=== PATIENT | male | born 1960 | race Hispanic/Latino ===

== ENCOUNTER 2020-06-23 16:49 | Emergency (ER) | payer OTHER, SELFPAY ==
[2020-06-23 16:54] VITALS: BP 169/82; PULSE 68; RESP 16; TEMP 36.1; O2SAT 97; BMI 30.8
--- NOTE | 2020-06-23 17:14 | DI.CT.S_ITS ---
PROCEDURE: CT CERVICAL SPINE WO CON INDICATIONS: unwitnessed fall w/ c spine tenderness. TECHNIQUE: Noncontrast 3 mm thick sections acquired from the skull base to the T4 level. Sagittal and coronal reformats were then constructed. For radiation dose reduction, the following was used: automated exposure control, adjustment of mA and/or kV according to patient size. COMPARISON: None. FINDINGS: Image quality: Excellent. Bones: No fractures or dislocations. Visualized superior ribs are intact. Note is made of a normal variant partial fusion between C3 and C4, both anteriorly and posteriorly. Moderately severe degenerative disc disease is present at C5-6 and C6-7, and [id number] at C4-5. Soft tissues: Prevertebral soft tissues are normal in thickness. No paravertebral hematomas. No apical pneumothoraces. IMPRESSION: No acute trauma found. 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 Dictated by: Jaspal Wharton M.D. on 06/23/2020 at 17:38 Approved by: Jaspal Wharton M.D. on 06/23/2020 at 17:43
--- NOTE | 2020-06-23 17:14 | DI.CT.S_ITS ---
PROCEDURE: CT HEAD/BRAIN WO CON INDICATIONS: unwitnessed fall w/ c spine tenderness. TECHNIQUE: Noncontrast 4.5 mm thick angled axial sections acquired from the foramen magnum to the vertex, with coronal and sagittal reformats. For radiation dose reduction, the following was used: automated exposure control, adjustment of mA and/or kV according to patient size. COMPARISON: None. FINDINGS: Image quality: Excellent. CSF spaces: Basal cisterns are patent. No extra-axial fluid collections. Ventricles are normal in size and shape. Brain: No midline shift. No intracranial masses or hemorrhage. Ho-white matter interface is normal. Skull and face: Calvarium and visualized facial bones are intact, without suspicious lesions. Sinuses: Visualized sinuses and mastoids are clear. IMPRESSION: Normal for age, source of current pain after trauma symptoms is not seen. Dictated by: Jaspal Wharton M.D. on 06/23/2020 at 17:37 Approved by: Jaspal Wharton M.D. on 06/23/2020 at 17:38
--- NOTE | 2020-06-23 18:39 | PC.NURSE ---
Patient fell on sunday, does not recall feeling dizzy or light headed prior to fall. States it was icy out and at location of fall ground is uneven due to tree roots. Patient denies chest pain or SOB. Patient reports ongoing right sided neck pain and tenderness to scapular region. Pain in right shoulder worse with movement. CMS intact. ROM slightly limited due to stiffness. Noticed some relief with ibuprofen
--- NOTE | 2020-06-23 18:53 | ED_ITS ---
HPI - General Adult General Chief complaint: Syncope Stated complaint: fell last sunday/ Time Seen by Provider: 06/23/20 18:45 Source: patient Mode of arrival: Ambulatory Limitations: no limitations History of Present Illness HPI narrative: Patient is a 60-year-old male. Not on anticoagulation who comes to the emergency department today for evaluation of injuries that he sustained when he fell approximately 5 days ago. He states he was walking out of work when he thinks he either tripped over a tree branch that cause the sidewalk he was walking on to be uneven or over another portion of the uneven sidewalk h owever he is not 100% sure this is what happened. He does not think that he hit his head. He states that someone driving by. In asked him if he was okay and he said yes so the person left. He has been ambulatory since then. He states that prior to the event he was not having chest pain or shortness of breath or lightheadedness or palpitations. He reports some tingling occasionally down his right arm and pain in his right upper back. Has not tried anything for symptoms prior to arrival. Related Data Previous Rx's Medication Instructions Recorded azithromycin 250 mg tablet See Rx Instructions PO .COMPLEX #6 04/07/19 tab Allergies Allergy/AdvReac Type Severity Reaction Status Date / Time No Known Drug Allergies Allergy Verified 04/07/19 14:17 Review of Systems Constitutional Constitutional: Denies chills, Denies fatigue, Denies fever(s), Denies frequent falls, Denies headache(s) and Denies weakness Eyes Eyes: Denies change in vision ENT Ears, Nose, Mouth, and Throat: Denies vertigo, Denies dizziness, Denies headache(s), Denies neck pain, Denies disequilibrium and Denies sore throat Cardiovascular Cardiovascular: Denies chest pain, Denies rapid heart rate, Denies lightheadedness and Denies dyspnea Respiratory Respiratory: Denies cough and Denies dyspnea Gastrointestinal Gastrointestinal: Denies abdominal pain, Denies nausea and Denies vomiting Genitourinary Genitourinary: Denies dysuria Genitourinary: Denies dysuria Musculoskeletal Musculoskeletal: Reports back pain, Denies arthralgias, Denies joint swelling, Reports myalgias, Denies neck pain, Reports stiffness and Reports tingling Integumentary/Breasts Skin/Breast: Denies pruritus and Denies rash Neurologic Neurologic: Denies behavioral changes, Denies confusion, Denies vertigo, Denies dizziness, Denies frequent falls, Denies headache(s), Reports tingling, Denies disequilibrium and Denies weakness Psychiatric Psychiatric: Denies behavioral changes and Denies confusion Endocrine Endocrine: Denies fatigue Hematologic/Lymphatic On Anticoagulants: No Allergic/Immunologic Allergic/Immunologic: Denies urticaria Patient History Medical History Class 1 obesity (08/16/16) Gastroesophageal reflux disease Hyperlipidemia (09/25/11) Social History Smoking Status: Never smoker Smoking Status: Never smoker alcohol intake frequency: holidays/special occasions only Substance Use Type: does not use Exam Initial Vital Signs Initial Vital Signs: Vital Signs Temperature 97.0 F L 06/23/20 16:54 Pulse Rate 68 06/23/20 16:54 Respiratory Rate 16 06/23/20 16:54 Blood Pressure 169/82 H 06/23/20 16:54 Pulse Oximetry 97 06/23/20 16:54 Const General: cooperative, healthy appearing, comfortable, well developed and well groomed Limitations: mental status not altered HENMT Head: normal to inspection and normocephalic Nose: external nose normal Face and sinus: normal facial exam Resp Effort & Inspection: normal respiratory effort Auscultation: clear to auscultation bilaterally Cardio Rate: regular rate Rhythm: regular rhythm GI Inspection: non-distended Back/Spine/Pelvis Cervical Spine: No cervical spinal tenderness Thoracic/Lumbar Spine: paraspinal tenderness (Right thoracic region), No thoracic spinal tenderness and No lumbar spinal tenderness Skin Lesions: no lesions Rashes: no rashes Neuro General: patient alert, patient awake and patient oriented x3 Cognition: normal cognition Speech: speech normal Gait: normal gait Motor: muscle tone normal throughout Extrem General: normal to inspection and capillary refill normal Psych Appearance: grossly normal and well kempt Scores GCS Adrienne coma scale eye opening: Spontaneous [place] coma scale verbal response: Orientated Adrienne coma scale motor response: Obey commands Adrienne coma scale total score: 15 Course Orders Ordered: ED Orders 06/23/20 17:14 CT cervical spine wo con Stat CT head/brain wo con Stat Vital Signs Vital signs: Vital Signs - 8 hr 06/23/20 16:54 06/23/20 19:00 Temperature 97.0 F L Pulse Rate 68 60 Respiratory Rate 16 16 Blood Pressure 169/82 H 130/67 Pulse Oximetry 97 99 Medical Decision Making Imaging Data CT - cervical spine: Radiologist's Impression: [address] [id number] Scan ReportSigned Patient: Aric Merida AMR#: [id number]: [id number]:[id number]/Sex: 60 / MDate of Service: 06/23/20Loc: EDAccession Number: [id number] Procedure: CT cervical spine wo con Ordering Provider: Casandra Pena D.O. PROCEDURE: CT CERVICAL SPINE WO CON INDICATIONS: unwitnessed fall w/ c spine tenderness. TECHNIQUE: Noncontrast 3 mm thick sections acquired from the skull base to the T4 level. Sagittal and coronal reformats were then constructed. For radiation dose reduction, the following was used: automated exposure control, adjustment of mA and/or kV according to patient size. COMPARISON: None. FINDINGS: Image quality: Excellent. Bones: No fractures or dislocations. Visualized superior ribs are intact. Note is made of a normal variant partial fusion between C3 and C4, both anteriorly and posteriorly. Moderately severe degenerative disc disease is present at C5-6 and C6-7, and [id number] at C4-5. Soft tissues: Prevertebral soft tissues are normal in thickness. No paravertebral hematomas. No apical pneumothoraces. IMPRESSION: No acute trauma found. 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 Dictated by: Jaspal Wharton M.D. on 06/23/2020 at 17:38 Approved by: Jaspal Wharton M.D. on 06/23/2020 at 17:43 CT scan - head: Radiologist's Impression: [address] [id number] Scan ReportSigned Patient: Aric Merida AMR#: [id number]: [id number]:[id number]/Sex: 60 / MDate of Service: 06/23/20Loc: EDAccession Number: [id number] Procedure: CT head/brain wo con Ordering Provider: Casandra Pena D.O. PROCEDURE: CT HEAD/BRAIN WO CON INDICATIONS: unwitnessed fall w/ c spine tenderness. TECHNIQUE: Noncontrast 4.5 mm thick angled axial sections acquired from the foramen magnum to the vertex, with coronal and sagittal reformats. For radiation dose reduction, the following was used: automated exposure control, adjustment of mA and/or kV according to patient size. COMPARISON: None. FINDINGS: Image quality: Excellent. CSF spaces: Basal cisterns are patent. No extra-axial fluid collections. Ventricles are normal in size and shape. Brain: No midline shift. No intracranial masses or hemorrhage. Ho-white matter interface is normal. Skull and face: Calvarium and visualized facial bones are intact, without suspicious lesions. Sinuses: Visualized sinuses and mastoids are clear. IMPRESSION: Normal for age, source of current pain after trauma symptoms is not seen. Dictated by: Jaspal Wharton M.D. on 06/23/2020 at 17:37 Approved by: Jaspal Wharton M.D. on 06/23/2020 at 17:38 MDM Narrative Medical decision making narrative: Patient thinks that the reason that he fell was that he tripped. He did not have any prodromal symptoms prior to falling. His head CT and cervical spine are unremarkable. He does have pain over his right paraspinal/shoulder region however is full range of motion of his right shoulder. There is no other orthopedic injuries reported from the patient or found on the exam. I feel we can hold on further radiologic studies for now. The event did occur 5 days ago. He could still potentially be sore from the fall. Informed him that he needs to talk with his primary doctor about further workup if his symptoms do not improve. He was given return precautionsHe expressed understanding and agreement Discharge Plan Departure Patient Disposition: Home Clinical Impression: Fall, Upper back pain on right side, Arm paresthesia, right Instructions: How to Prevent Falls, DI for Numbness/Tingling Activity Restrictions/Additional Instructions: Your CT scans here in the emergency department did not show any emergent issue. I do recommend that you contact your primary provider for a follow-up so if your symptoms do not improve in the next couple days that you have an appointment to discuss potential further evaluation. Return to the emergency department for any new or worsening symptoms Prescriptions: No Action azithromycin 250 mg tablet See Rx Instructions PO .COMPLEX Qty: 6 RF: 0 Referrals: Desi Wallis ARNP [Primary Care Provider] -
[2020-06-23 19:00] VITALS: BP 130/67; PULSE 60; RESP 16; O2SAT 99
== END 2020-06-23 19:02 | disposition home or self-care (01) ==
PROVIDERS: Emergency Provider Emergency Medicine; PCP Internal Medicine
DX: M54.6 Pain in thoracic spine (principal); R20.2 Paresthesia of skin; S09.90XA Unspecified injury of head, initial encounter; W01.0XXA Fall on same level from slipping, tripping and stumbling without subsequent striking against object, initial encounter; Y99.0 Civilian activity done for income or pay
CPT/HCPCS: 70450; 72125; 99284

== ENCOUNTER → 2020-10-22 07:06 | Outpatient (CLI) | payer OTHER, SELFPAY ==
[2020-10-22 08:14] LABS: Add Manual Diff / Slide Review NO; Basophils Absolute Auto 100 /uL (0-100); Eosinophils Absolute Auto 300 /uL (0-450); Eosinophils Percent Auto 4.8 % (2-4); Hemoglobin 14.7 g/dL (13.5-17.5); Lymphocytes Absolute Auto 2200 /uL (1100-4500); Lymphocytes Percent Auto 33.6 % (25-40); Mean Corpuscular HGB Conc 33.3 % (30-36); Mean Corpuscular Hemoglobin 30.4 PG (26-34); Mean Corpuscular Volume 91.1 fL (80-100); Monocytes Absolute Auto 400 /uL (0-900); Monocytes Percent Auto 6.6 % (3-14); Neutrophils Absolute Auto 3500 /uL (1500-7000); Platelet Count 247 X10^3/uL (150-400); Red Blood Cell Count 4.83 X10^6/uL (4.5-5.9); Red Cell Distribution Width 13.2 % (11.6-14.8); White Blood Cell Count 6.6 X10^3/uL (4.5-11.0)
[2020-10-22 08:27] LABS: Appearance Urine UA CLEAR; Bilirubin Urine UA NEGATIVE (NEGATIVE); Color Urine UA YELLOW; Glucose Urine UA NEGATIVE (Negative); Ketones Urine UA NEGATIVE (NEGATIVE); Leukocyte Esterase Urine UA NEGATIVE (NEGATIVE); Nitrite Urine UA NEGATIVE (Negative); Occult Blood Urine UA TRACE-INTACT (Negative); Protein Urine UA NEGATIVE (Negative); Specific Gravity Urine UA 1.025 (1.000-1.035); Urobilinogen Urine UA 0.2 E.U./dL (0.2)
[2020-10-22 09:24] LABS: Alanine Aminotransferase 42 IU/L (<50); Albumin 4.4 g/dL (3.5-5.0); Albumin Globulin Ratio 1.4 (1.0-2.8); Alkaline Phosphatase 90 U/L (38-126); Aspartate Aminotransferase 47 IU/L (17-59); BUN Creatinine Ratio 27.4 (6-22); Bilirubin Total 0.7 mg/dL (0.2-1.3); Blood Urea Nitrogen 26 mg/dL (9-20); Calcium 9.7 mg/dL (8.4-10.2); Carbon Dioxide 24 mmol/L (22-32); Chloride 107 mmol/L (98-107); Cholesterol 270 mg/dL (140-199); Estimated Glomerular Filt Rate > 60.0 mL/min (>60); Globulin 3.1 g/dL (1.7-4.1); Glucose 96 mg/dL (70-100); HDL Cholesterol 38 mg/dL (40-60); HEMOLYSIS < 15 (0-50); LDL Cholesterol Calculated 184 mg/dL (<100); Potassium 4.3 mmol/L (3.4-5.1); Sodium 140 mmol/L (137-145); Total Protein 7.5 g/dL (6.3-8.2); Triglycerides 238 mg/dL (35-150)
[2020-10-22 09:51] LABS: Prostate Specific Antigen Scrn 0.882 ng/mL (0.1-4.0)
== END ==
PROVIDERS: PCP Registered Nurse; Referring Provider Registered Nurse; Visit Provider Registered Nurse
DX: Z00.00 Encounter for general adult medical examination without abnormal findings (principal); E78.5 Hyperlipidemia, unspecified; Z12.5 Encounter for screening for malignant neoplasm of prostate
CPT/HCPCS: 36415; 80053; 80061; 81003; 85025; G0103

== ENCOUNTER → 2020-12-15 09:00 | Outpatient (CLI) | payer OTHER, SELFPAY ==
[2020-12-15 09:22] LABS: COVID19 -Nasal RAPID Negative (Negative)
--- NOTE | 2020-12-15 09:39 | DI.RAD.S_ITS ---
PROCEDURE: XR CHEST 2V INDICATIONS: pleuritic chest pain TECHNIQUE: 2 views of the chest were acquired. COMPARISON: [facility], , CHEST 2 VIEW, 02/07/2010, 14:13. FINDINGS: Surgical changes and devices: None. Lungs and pleura: Lungs are clear. No pleural effusions or pneumothorax. Mediastinum: Mediastinal contours are normal. Heart size is normal. Bones and chest wall: No suspicious bony abnormalities. Soft tissues appear unremarkable. IMPRESSION: No acute cardiopulmonary disease process. Dictated by: Roz Calvo MD, PhD on 12/15/2020 at 9:52 Approved by: Roz Calvo MD, PhD on 12/15/2020 at 9:54
== END ==
PROVIDERS: PCP Registered Nurse; Referring Provider Student in an Organized Health Care Education/Training Program; Visit Provider Student in an Organized Health Care Education/Training Program
DX: J02.9 Acute pharyngitis, unspecified (principal); R05 Cough; R07.81 Pleurodynia; Z20.822 Contact with and (suspected) exposure to COVID-19
CPT/HCPCS: 71046; 87635

== ENCOUNTER → 2021-05-02 12:00 | Outpatient (CLI) | payer OTHER, SELFPAY ==
[2021-05-02 13:13] LABS: COVID19 -Nasal RAPID POSITIVE (Negative)
== END ==
PROVIDERS: PCP Registered Nurse; Referring Provider Physician Assistant; Visit Provider Physician Assistant
DX: Z20.822 Contact with and (suspected) exposure to COVID-19 (principal)
CPT/HCPCS: 87635

== ENCOUNTER 2021-10-27 16:00 | Outpatient (RCR) | payer OTHER, SELFPAY ==
--- NOTE | 2020-12-21 09:21 | PT.OIE ---
Current Diagnoses Pain in right shoulder (12/21/20) Other cervical disc degeneration, unspecified cervical region (12/21/20) Past Medical History (Last Updated 12/12/20 @ 20:50 by Virginia Devi) Adult general medical exam Class 1 obesity (08/16/16) Gastroesophageal reflux disease Hyperlipidemia (09/25/11) Right shoulder pain Screening for malignant neoplasm of colon Screening for malignant neoplasm of prostate Vision disorder Visit Care Team Role Provider Type DENTON Carrero Attending Provider Advanced Senior Core Java Developer Primary Care Provider Referring Provider Specialty: Medical Address: [address] [place] [address] Email: [email or web address] Physical Therapy Initial Evaluation PT-OP-A Visit Information Start: 12/21/20 08:54 Freq: Status: Active Protocol: Document 12/21/20 08:54 OF (Rec: 12/21/20 09:21 OF [id number]) Out-Patient Physical Therapy Visit Information Visit Information Visit Type Initial Evaluation Visit Start Time 08:10 Visit Stop Time 08:54 Total Visit Minutes 44 Visit Number 1 Evaluation Information Evaluation Date 12/21/20 PT-OP-B Current Condition Start: 12/21/20 08:54 Freq: Status: Active Protocol: Document 12/21/20 08:54 OF (Rec: 12/21/20 09:21 OF [id number]) Current Condition History of Current Condition Onset Date 06/2020 Current Complaints mid back pain, R UE tingling History of Current Condition Pt states he fell leaving work in Jun. He has had shldr/mid back/ UE pain since. 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 Prior Treatments and Tests Pt states he had chirocpractic , PT, and massage therapy in the spring Treatment Goals Patient/Caregiver Goals get back to doing work and what I want without pain Prior Functional Status Baseline Function- ADL's Independent Baseline Function- Mobility Independent Current Functional Impairments (Reported) Functional Limitations- ADL's Difficulty with any prolonged activity Functional Limitations- Work/School pain while working at computer PT-OP-C Subjective Start: 12/21/20 08:54 Freq: Status: Active Protocol: Document 12/21/20 08:54 OF (Rec: 12/21/20 09:21 OF [id number]) OP-PT Subjective Patient Comments Patient Comments Pt states he is eager for HEP, leaving for 9 days this week Patient Reported Progress Same Patient Questionnaires Quick Dash- Upper Extremity Quick Dash UE Impairment 40 to 59% Impaired (Score 40- 59) OP-PT Pain Assessment Pain Assessment Grid Paper Pain Assessment Grid Completed Yes Location medial scapula Pain Location Details R t spine, medial scap Intensity 5 Scale Used Numeric (0 - 10) Description Aching Frequency Frequent Pain Duration constant Radiating Location R UE Pain Aggravating Factors ADL's,Activity,Exercise, Standing,Walking,Lifting Pain Alleviating Factors Lying Supine Home Pain Medication Use Pain Medications Used Yes Home Pain Medication Frequency Ibuprofen PT-OP-H Neuro Start: 12/21/20 08:54 Freq: Status: Active Protocol: Document 12/21/20 08:54 OF (Rec: 12/21/20 09:21 OF [id number]) Sensation Evaluation Gross Sensation Gross Sensation Left UE Impaired Sensation Description Hyperesthesia,Tingling,Burning Dermatome Impairments C8,T4 Comments Summary Comments pt reports numbness/tingling in R 4th/5th digit. Burning midscapular T spine, R >L PT-OP-K Range of Motion Start: 12/21/20 08:54 Freq: Status: Active Protocol: Document 12/21/20 08:54 OF (Rec: 12/21/20 09:21 OF [id number]) Cervical Spine Range of Motion Cervical Spine Active Testing Position Sitting Comments WNL excluding lateral flexion, limited to 10degrees bilat Shoulder Goniometric Range of Motion Shoulder Left Shoulder ROM WFL Yes Comments WNL Right Shoulder ROM WFL Yes Testing Position Sitting Comments WNL PT-OP-L Special Tests Start: 12/21/20 08:54 Freq: Status: Active Protocol: Document 12/21/20 08:54 OF (Rec: 12/21/20 09:21 OF [id number]) Special Tests Cervical Spine Special Tests Spurling's Test Test Results neg Comments no radicular symptoms R or L Neural Special Tests- Upper Body Ulnar Nerve Tension Test Results Neg PT-OP-M Strength Start: 12/21/20 08:54 Freq: Status: Active Protocol: Document 12/21/20 08:54 OF (Rec: 12/21/20 09:21 OF [id number]) Cervical Spine Strength Cervical Spine Manual Muscle Testing Flexion (C1-2) 5 Normal Extension 5 Normal Rotation Left 5 Normal Rotation Right 5 Normal Lateral Flexion Left (C3) 5 Normal Lateral Flexion Right (C3) 5 Normal PT-OP-Q Treatments Start: 12/21/20 08:54 Freq: Status: Active Protocol: Document 12/21/20 08:54 OF (Rec: 12/21/20 09:21 OF [id number]) Therapeutic Exercises Supine Exercises 1/2 roller stretch Side bilateral Reps/Minutes 1min Comments 1/2 foam roller, stretching for B pecs, cues for shldr retraction. Sitting Exercises rows Side bilateral Resistance TB2 Reps/Minutes 3x10 Comments demo for UT relaxation, proper retractionss Manual Therapy Treatment Soft Tissue Mobilization R scap mobs Mobilization Type Sustained Pressure Intensity/Depth Moderate Body Position Sidelying Comments sup/inf glides, STM for rhomboids, hypersensitive Self-Care/Home Management Treatment Education Patient Education Body Mechanics,Home Exercise Program,Pain Management PT-OP-T Assessment and Plan Start: 12/21/20 08:54 Freq: Status: Active Protocol: Document 12/21/20 08:54 OF (Rec: 12/21/20 09:21 OF [id number]) Physical Therapy Assessment Rehab Potential Rehabilitation Potential Good Evaluation Complexity Number of Personal Factors/Comorbidities 1-2 Number of Body Systems Impaired 1-2 Clinical Presentation at Evaluation Stable Impairments Impairments Activity Tolerance,Functional Activities,Soft Tissue Mobility,Strength Goals 3 Impairment UE pain Short Term Goal (STG) Pt will demo supine chin tuck x10sec to improve postural control STG Duration 2 weeks Alarm Installation Technician Goal (LTG) Pt will demo supine chin tuck x30sec to improve tolerance for work LTG Duration 6 weeks 2 Impairment pain with work Short Term Goal (STG) Pt will improve quickdash score to <30% to demonstrate improved function at work STG Duration 2 weeks Alarm Installation Technician Goal (LTG) Pt will improve quickdash to < 19% to return to I PLOF. LTG Duration 6 weeks 1 Impairment no HEP Short Term Goal (STG) Pt will be I with basic HEP for stretching and strengthening STG Duration 2 weeks Alarm Installation Technician Goal (LTG) Pt will be I with advanced HEP for self mobilization, strengthening exercises to maximize functional return. LTG Duration 6 weeks Progress Towards Goals Progress Towards Goals Progressing Toward Goals Assessment Summary Assessment Aric is a 60 YO male s/p falling ~6 months ago. He presents with persistent back and UE pain. He has numbness/ tingling in R UE 4th and 5th digit. Hypersensitive t spine between shldr blades R >L. 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 He is unable to perform ADL or IADL without breaks. He states he must mow his lawn 1/2 at a time due to pain. He cannot lift >50lb per his report. He has pain at night, finds relief from wedge pillow. He will require skilled therapy to improve scapular control, increase strength to reduce pain, and return to work without limitation. Physical Therapy Plan Frequency and Duration Frequency of Treatment 1-2x/ week Duration of Treatment 6 weeks Plan of Care Start Date 12/21/20 Plan of Care End Date 02/01/21 Therapeutic Interventions Therapeutic Interventions Home Exercise Program,Manual Therapy,Neuromuscular Re- education,Self-Care/Home Management,Soft Tissue Mobilization,Therapeutic Exercises Next Visit Focus/Plan Next Note Type Treatment Note Next Visit Plan re assess rows, roller stretch . Add chin tucks/DNF in supine . STM for trip.
--- NOTE | 2020-12-21 09:21 | PT.OPPOC ---
Physical, Occupational & Speech Therapy At [facility] Current Diagnoses Pain in right shoulder (12/21/20) Other cervical disc degeneration, unspecified cervical region (12/21/20) Visit Care Team Role Provider Type DENTON Carrero Attending Provider Advanced Legal Office Administrator Primary Care Provider Referring Provider Specialty: Medical Address: [address] [place] [address], [facility] Email: [email or web address] Plan Of Care PT-OP-T Assessment and Plan Start: 12/21/20 08:54 Freq: Status: Active Protocol: Document 12/21/20 08:54 OF (Rec: 12/21/20 09:21 OF [id number]) Physical Therapy Assessment Rehab Potential Rehabilitation Potential Good Evaluation Complexity Number of Personal Factors/Comorbidities 1-2 Number of Body Systems Impaired 1-2 Clinical Presentation at Evaluation Stable Impairments Impairments Activity Tolerance,Functional Activities,Soft Tissue Mobility,Strength Goals 3 Impairment UE pain Short Term Goal (STG) Pt will demo supine chin tuck x10sec to improve postural control STG Duration 2 weeks [facility] Goal (LTG) Pt will demo supine chin tuck x30sec to improve tolerance for work LTG Duration 6 weeks 2 Impairment pain with work Short Term Goal (STG) Pt will improve quickdash score to <30% to demonstrate improved function at work STG Duration 2 weeks [facility] Goal (LTG) Pt will improve quickdash to < 19% to return to I PLOF. LTG Duration 6 weeks 1 Impairment no HEP Short Term Goal (STG) Pt will be I with basic HEP for stretching and strengthening STG Duration 2 weeks [facility] Goal (LTG) Pt will be I with advanced HEP for self mobilization, strengthening exercises to maximize functional return. LTG Duration 6 weeks Progress Towards Goals Progress Towards Goals Progressing Toward Goals Assessment Summary Assessment Aric is a 60 YO male s/p falling ~6 months ago. He presents with persistent back and UE pain. He has numbness/ tingling in R UE 4th and 5th digit. Hypersensitive t spine between shldr blades R >L. 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 He is unable to perform ADL or IADL without breaks. He states he must mow his lawn 1/2 at a time due to pain. He cannot lift >50lb per his report. He has pain at night, finds relief from wedge pillow. He will require skilled therapy to improve scapular control, increase strength to reduce pain, and return to work without limitation. Physical Therapy Plan Frequency and Duration Frequency of Treatment 1-2x/ week Duration of Treatment 6 weeks Plan of Care Start Date 12/21/20 Plan of Care End Date 02/01/21 Therapeutic Interventions Therapeutic Interventions Home Exercise Program,Manual Therapy,Neuromuscular Re- education,Self-Care/Home Management,Soft Tissue Mobilization,Therapeutic Exercises Next Visit Focus/Plan Next Note Type Treatment Note Next Visit Plan re assess rows, roller stretch . Add chin tucks/DNF in supine . STM for trip. Plan of Care Dates Plan of Care Start Date 12/21/20 Plan of Care End Date 02/01/21 Electronically Signed by: Max Muro, PT 12/21/20 0993 Please Sign and Return: I have reviewed this Plan of Care and certify that the skilled therapy services above are required to meet the patient?s needs. Physician Signature Date Printed Name and Credentials Clinical Instructor Signature Printed Name and Credentials
--- NOTE | 2020-12-22 08:52 | PT.OTN ---
Current Diagnoses Pain in right shoulder (12/22/20) Other cervical disc degeneration, unspecified cervical region (12/22/20) Physical Therapy Treatment Note PT-OP-A Visit Information Start: 12/21/20 08:54 Freq: Status: Active Protocol: Document 12/22/20 08:47 OF (Rec: 12/22/20 08:52 OF [id number]) Out-Patient Physical Therapy Visit Information Visit Information Visit Type Treatment Note Visit Start Time 08:08 Visit Stop Time 08:47 Total Visit Minutes 39 Visit Number 2 Evaluation Information Evaluation Date 12/21/20 PT-OP-B Current Condition Start: 12/21/20 08:54 Freq: Status: Active Protocol: Document 12/21/20 08:54 OF (Rec: 12/21/20 09:21 OF [id number]) Current Condition History of Current Condition Onset Date 06/2020 Current Complaints mid back pain, R UE tingling History of Current Condition Pt states he fell leaving work in Jun. He has had shldr/mid back/ UE pain since. 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 Prior Treatments and Tests Pt states he had chirocpractic , PT, and massage therapy in the spring Treatment Goals Patient/Caregiver Goals get back to doing work and what I want without pain Prior Functional Status Baseline Function- ADL's Independent Baseline Function- Mobility Independent Current Functional Impairments (Reported) Functional Limitations- ADL's Difficulty with any prolonged activity Functional Limitations- Work/School pain while working at computer PT-OP-C Subjective Start: 12/21/20 08:54 Freq: Status: Active Protocol: Document 12/22/20 08:47 OF (Rec: 12/22/20 08:52 OF [id number]) OP-PT Subjective Patient Comments Patient Comments pt states he feels better than yesterday, stretching helped Patient Reported Progress Improving OP-PT Pain Assessment Pain Assessment Grid Paper Pain Assessment Grid Completed No: pt denies pain this am PT-OP-H Neuro Start: 12/21/20 08:54 Freq: Status: Active Protocol: Document 12/21/20 08:54 OF (Rec: 12/21/20 09:21 OF [id number]) Sensation Evaluation Gross Sensation Gross Sensation Left UE Impaired Sensation Description Hyperesthesia,Tingling,Burning Dermatome Impairments C8,T4 Comments Summary Comments pt reports numbness/tingling in R 4th/5th digit. Burning midscapular T spine, R >L PT-OP-K Range of Motion Start: 12/21/20 08:54 Freq: Status: Active Protocol: Document 12/21/20 08:54 OF (Rec: 12/21/20 09:21 OF [id number]) Cervical Spine Range of Motion Cervical Spine Active Testing Position Sitting Comments WNL excluding lateral flexion, limited to 10degrees bilat Shoulder Goniometric Range of Motion Shoulder Left Shoulder ROM WFL Yes Comments WNL Right Shoulder ROM WFL Yes Testing Position Sitting Comments WNL PT-OP-L Special Tests Start: 12/21/20 08:54 Freq: Status: Active Protocol: Document 12/21/20 08:54 OF (Rec: 12/21/20 09:21 OF [id number]) Special Tests Cervical Spine Special Tests Spurling's Test Test Results neg Comments no radicular symptoms R or L Neural Special Tests- Upper Body Ulnar Nerve Tension Test Results Neg PT-OP-M Strength Start: 12/21/20 08:54 Freq: Status: Active Protocol: Document 12/21/20 08:54 OF (Rec: 12/21/20 09:21 OF [id number]) Cervical Spine Strength Cervical Spine Manual Muscle Testing Flexion (C1-2) 5 Normal Extension 5 Normal Rotation Left 5 Normal Rotation Right 5 Normal Lateral Flexion Left (C3) 5 Normal Lateral Flexion Right (C3) 5 Normal PT-OP-Q Treatments Start: 12/21/20 08:54 Freq: Status: Active Protocol: Document 12/22/20 08:47 OF (Rec: 12/22/20 08:52 OF [id number]) Therapeutic Exercises Supine Exercises chin tuck Reps/Minutes [id number] Comments demo for proper ROM 1/2 roller stretch Side bilateral Reps/Minutes 1min Comments 1/2 foam roller, stretching for B pecs, cues for shldr retraction. Sitting Exercises UT stretch Side bilateral Reps/Minutes [id number] rows Side bilateral Resistance TB2 Reps/Minutes 3x10 Comments demo for UT relaxation, proper retractionss Standing Exercises shldr ext Side bilateral Resistance TB2 Reps/Minutes 3x10 Comments cues to relax UT, position band for resistance Self-Care/Home Management Treatment Education Patient Education Body Mechanics,Fall Risk,Home Exercise Program PT-OP-T Assessment and Plan Start: 12/21/20 08:54 Freq: Status: Active Protocol: Document 12/22/20 08:47 OF (Rec: 12/22/20 08:52 OF [id number]) Physical Therapy Assessment Rehab Potential Rehabilitation Potential Good Evaluation Complexity Number of Personal Factors/Comorbidities 1-2 Number of Body Systems Impaired 1-2 Clinical Presentation at Evaluation Stable Impairments Impairments Soft Tissue Mobility,Strength Goals 3 Impairment UE pain Short Term Goal (STG) Pt will demo supine chin tuck x10sec to improve postural control STG Duration 2 weeks 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 LTG Duration 6 weeks 1 Impairment no HEP Short Term Goal (STG) Pt will be I with basic HEP for stretching and strengthening STG Duration 2 weeks Indoor Landscape Architect Goal (LTG) Pt will be I with advanced HEP for self mobilization, strengthening exercises to maximize functional return. LTG Duration 6 weeks Progress Towards Goals Progress Towards Goals Progressing Toward Goals Assessment Summary Assessment Pt has upcoming vacation, issued HEP to address shldr blade pain, aware of stretching and fatigue vs nerve pain. He has good recall of exercises yesterday Physical Therapy Plan Next Visit Focus/Plan Next Note Type Treatment Note Next Visit Plan re assess HEP after vacation. Progress stabilization/ strengthening for R shldr/scap
--- NOTE | 2021-01-03 09:02 | PT.OTN ---
Current Diagnoses Pain in right shoulder (01/03/21) Other cervical disc degeneration, unspecified cervical region (01/03/21) Physical Therapy Treatment Note PT-OP-A Visit Information Start: 12/21/20 08:54 Freq: Status: Active Protocol: Document 01/03/21 08:15 HH (Rec: 01/03/21 09:02 [id number]) Out-Patient Physical Therapy Visit Information Visit Information Visit Type Treatment Note Visit Start Time 08:16 Visit Stop Time 09:00 Total Visit Minutes 44 Visit Number 3 PT-OP-B Current Condition Start: 12/21/20 08:54 Freq: Status: Active Protocol: Document 12/21/20 08:54 OF (Rec: 12/21/20 09:21 OF [id number]) Current Condition History of Current Condition Onset Date 06/2020 Current Complaints mid back pain, R UE tingling History of Current Condition Pt states he fell leaving work in Jun. He has had shldr/mid back/ UE pain since. 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 Prior Treatments and Tests Pt states he had chirocpractic , PT, and massage therapy in the spring Treatment Goals Patient/Caregiver Goals get back to doing work and what I want without pain Prior Functional Status Baseline Function- ADL's Independent Baseline Function- Mobility Independent Current Functional Impairments (Reported) Functional Limitations- ADL's Difficulty with any prolonged activity Functional Limitations- Work/School pain while working at computer PT-OP-C Subjective Start: 12/21/20 08:54 Freq: Status: Active Protocol: Document 01/03/21 08:15 HH (Rec: 01/03/21 09:02 [id number]) OP-PT Subjective Patient Comments Patient Comments The home exercises makes me feel good, but the more activities i do the more fatigue/ pain i get sometimes. My tingling sensation seems to be less. Patient Reported Progress Improving PT-OP-H Neuro Start: 12/21/20 08:54 Freq: Status: Active Protocol: Document 12/21/20 08:54 OF (Rec: 12/21/20 09:21 OF [id number]) Sensation Evaluation Gross Sensation Gross Sensation Left UE Impaired Sensation Description Hyperesthesia,Tingling,Burning Dermatome Impairments C8,T4 Comments Summary Comments pt reports numbness/tingling in R 4th/5th digit. Burning midscapular T spine, R >L PT-OP-K Range of Motion Start: 12/21/20 08:54 Freq: Status: Active Protocol: Document 12/21/20 08:54 OF (Rec: 12/21/20 09:21 OF [id number]) Cervical Spine Range of Motion Cervical Spine Active Testing Position Sitting Comments WNL excluding lateral flexion, limited to 10degrees bilat Shoulder Goniometric Range of Motion Shoulder Left Shoulder ROM WFL Yes Comments WNL Right Shoulder ROM WFL Yes Testing Position Sitting Comments WNL PT-OP-L Special Tests Start: 12/21/20 08:54 Freq: Status: Active Protocol: Document 12/21/20 08:54 OF (Rec: 12/21/20 09:21 OF [id number]) Special Tests Cervical Spine Special Tests Spurling's Test Test Results neg Comments no radicular symptoms R or L Neural Special Tests- Upper Body Ulnar Nerve Tension Test Results Neg PT-OP-M Strength Start: 12/21/20 08:54 Freq: Status: Active Protocol: Document 12/21/20 08:54 OF (Rec: 12/21/20 09:21 OF [id number]) Cervical Spine Strength Cervical Spine Manual Muscle Testing Flexion (C1-2) 5 Normal Extension 5 Normal Rotation Left 5 Normal Rotation Right 5 Normal Lateral Flexion Left (C3) 5 Normal Lateral Flexion Right (C3) 5 Normal PT-OP-Q Treatments Start: 12/21/20 08:54 Freq: Status: Active Protocol: Document 01/03/21 08:15 HH (Rec: 01/03/21 09:02 HH [id number]) Cardio Equipment Upper Body Ergometer (UBE) Duration (Minutes) 4 Other 30s f/b , no dsicomfort Therapeutic Exercises Supine Exercises chin tuck Reps/Minutes [id number] Comments demo for proper ROM, cues to push against pillow 1/2 roller stretch Side bilateral Reps/Minutes 1min Comments 1/2 foam roller, stretching for B pecs, cues for shldr retraction. Sitting Exercises thoracic rotation Side bilateral Comments for HEP rows Side bilateral Resistance TB2 Reps/Minutes 3x10 Comments demo for UT relaxation, proper retractionss Standing Exercises ulnar nerve glide Standing Exercise Name with L UE assistance Side right Reps/Minutes 8 x1 Comments for HEP rhomboid stretch Side right Reps/Minutes 10s x 3 Comments for HEP Manual Therapy Treatment Soft Tissue Mobilization R scap mobs Mobilization Type Sustained Pressure Intensity/Depth Moderate Body Position Sidelying Comments sup/inf glides, STM for rhomboids, hypersensitive Joint Mobilizations R scap Grade III Body Position Sidelying Reps/Duration 2 mins Comments protraction Nerve Glides ulnar Body Position Standing Reps/Duration 10sec Comments passive stretch PT-OP-T Assessment and Plan Start: 12/21/20 08:54 Freq: Status: Active Protocol: Document 01/03/21 08:15 (Rec: 01/03/21 09:02 [id number]) Physical Therapy Assessment Goals 3 Impairment UE pain Short Term Goal (STG) Pt will demo supine chin tuck x10sec to improve postural control STG Duration 2 weeks Skilled Nursing Goal (LTG) Pt will demo supine chin tuck x30sec to improve tolerance for work LTG Duration 6 weeks 2 Impairment pain with work Short Term Goal (STG) Pt will improve quickdash score to <30% to demonstrate improved function at work STG Duration 2 weeks Skilled Nursing Goal (LTG) Pt will improve quickdash to < 19% to return to I PLOF. LTG Duration 6 weeks 1 Impairment no HEP Short Term Goal (STG) Pt will be I with basic HEP for stretching and strengthening STG Duration 2 weeks Skilled Nursing Goal (LTG) Pt will be I with advanced HEP for self mobilization, strengthening exercises to maximize functional return. LTG Duration 6 weeks Assessment Summary Assessment pt still has occasional tingling to 4-5th digit and pain after lifting/ increase physical activity. Noticed pt has limited ulnar nerve tension / rhomboid tightness. Added rhomboid stretch and ulnar nerve glide. Physical Therapy Plan Frequency and Duration Frequency of Treatment 1-2x/ week Duration of Treatment 6 weeks Plan of Care Start Date 12/21/20 Plan of Care End Date 02/01/21 Therapeutic Interventions Therapeutic Interventions Home Exercise Program,Manual Therapy,Neuromuscular Re- education,Self-Care/Home Management,Soft Tissue Mobilization,Therapeutic Exercises Next Visit Focus/Plan Next Note Type Treatment Note Next Visit Plan re assess HEP after vacation. Progress stabilization/ strengthening for R shldr/scap
--- NOTE | 2021-01-11 16:05 | PT.OTN ---
Current Diagnoses Pain in right shoulder (01/11/21) Other cervical disc degeneration, unspecified cervical region (01/11/21) Physical Therapy Treatment Note PT-OP-A Visit Information Start: 12/21/20 08:54 Freq: Status: Active Protocol: Document 01/11/21 15:56 OF (Rec: 01/11/21 16:04 OF [id number]) Out-Patient Physical Therapy Visit Information Visit Information Visit Type Treatment Note Visit Start Time 15:15 Visit Stop Time 15:55 Total Visit Minutes 40 Visit Number 4 Evaluation Information Evaluation Date 12/21/20 PT-OP-B Current Condition Start: 12/21/20 08:54 Freq: Status: Active Protocol: Document 12/21/20 08:54 OF (Rec: 12/21/20 09:21 OF [id number]) Current Condition History of Current Condition Onset Date 06/2020 Current Complaints mid back pain, R UE tingling History of Current Condition Pt states he fell leaving work in Jun. He has had shldr/mid back/ UE pain since. 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 Prior Treatments and Tests Pt states he had chirocpractic , PT, and massage therapy in the spring Treatment Goals Patient/Caregiver Goals get back to doing work and what I want without pain Prior Functional Status Baseline Function- ADL's Independent Baseline Function- Mobility Independent Current Functional Impairments (Reported) Functional Limitations- ADL's Difficulty with any prolonged activity Functional Limitations- Work/School pain while working at computer PT-OP-C Subjective Start: 12/21/20 08:54 Freq: Status: Active Protocol: Document 01/11/21 15:56 OF (Rec: 01/11/21 16:04 OF [id number]) OP-PT Subjective Patient Comments Patient Comments pt reports improved symptoms and difficulty at work Patient Reported Progress Improving OP-PT Pain Assessment Pain Assessment Grid Paper Pain Assessment Grid Completed Yes Location medial scapula Pain Location Details R shldr, mid scapular Intensity 5 Scale Used Numeric (0 - 10) Frequency Frequent Pain Aggravating Factors ADL's,Activity,Exercise, Standing,Walking,Lifting PT-OP-H Neuro Start: 12/21/20 08:54 Freq: Status: Active Protocol: Document 12/21/20 08:54 OF (Rec: 12/21/20 09:21 OF [id number]) Sensation Evaluation Gross Sensation Gross Sensation Left UE Impaired Sensation Description Hyperesthesia,Tingling,Burning Dermatome Impairments C8,T4 Comments Summary Comments pt reports numbness/tingling in R 4th/5th digit. Burning midscapular T spine, R >L PT-OP-K Range of Motion Start: 12/21/20 08:54 Freq: Status: Active Protocol: Document 12/21/20 08:54 OF (Rec: 12/21/20 09:21 OF [id number]) Cervical Spine Range of Motion Cervical Spine Active Testing Position Sitting Comments WNL excluding lateral flexion, limited to 10degrees bilat Shoulder Goniometric Range of Motion Shoulder Left Shoulder ROM WFL Yes Comments WNL Right Shoulder ROM WFL Yes Testing Position Sitting Comments WNL PT-OP-L Special Tests Start: 12/21/20 08:54 Freq: Status: Active Protocol: Document 12/21/20 08:54 OF (Rec: 12/21/20 09:21 OF [id number]) Special Tests Cervical Spine Special Tests Spurling's Test Test Results neg Comments no radicular symptoms R or L Neural Special Tests- Upper Body Ulnar Nerve Tension Test Results Neg PT-OP-M Strength Start: 12/21/20 08:54 Freq: Status: Active Protocol: Document 12/21/20 08:54 OF (Rec: 12/21/20 09:21 OF [id number]) Cervical Spine Strength Cervical Spine Manual Muscle Testing Flexion (C1-2) 5 Normal Extension 5 Normal Rotation Left 5 Normal Rotation Right 5 Normal Lateral Flexion Left (C3) 5 Normal Lateral Flexion Right (C3) 5 Normal PT-OP-Q Treatments Start: 12/21/20 08:54 Freq: Status: Active Protocol: Document 01/11/21 15:56 OF (Rec: 01/11/21 16:04 OF [email or web address]) Therapeutic Exercises Supine Exercises chin tuck Reps/Minutes [id number] Comments demo for proper ROM, cues to push against pillow 1/2 roller stretch Side bilateral Reps/Minutes 1min Comments 1/2 foam roller, stretching for B pecs, cues for shldr retraction. Sidelying Exercises open book Side right Reps/Minutes 2x5 Comments cues for initiating shldr retraction with UE ABD Sitting Exercises thoracic rotation Side bilateral Equipment Used [id number] Comments re educated upon positioning, stretch direction rows Side bilateral Resistance TB2 Reps/Minutes 3x10 Comments demo for UT relaxation, band for home Standing Exercises ulnar nerve glide Standing Exercise Name with L UE assistance Side right Reps/Minutes 8 x1 Comments side bend at neck to/from rhomboid stretch Side right Reps/Minutes 10s x 3 Comments for HEP shldr ext Side bilateral Resistance TB2 Reps/Minutes 3x10 Comments cues to relax UT, position band for resistance Manual Therapy Treatment Soft Tissue Mobilization R scap mobs Mobilization Type Oscillations,Sustained Pressure Intensity/Depth Moderate Body Position Sidelying Comments sup/inf glides, STM for rhomboids Joint Mobilizations R scap Grade III Body Position Sidelying Reps/Duration 2 mins Comments protraction Nerve Glides ulnar Body Position Standing Reps/Duration 10sec Comments passive stretch Self-Care/Home Management Treatment Education Patient Education Home Exercise Program PT-OP-T Assessment and Plan Start: 12/21/20 08:54 Freq: Status: Active Protocol: Document 01/11/21 15:56 OF (Rec: 01/11/21 16:04 OF [email or web address]) Physical Therapy Assessment Rehab Potential Rehabilitation Potential Good Evaluation Complexity Number of Personal Factors/Comorbidities 1-2 Number of Body Systems Impaired 1-2 Clinical Presentation at Evaluation Stable Impairments Impairments ROM,Soft Tissue Mobility, Strength Goals 3 Impairment UE pain Short Term Goal (STG) Pt will demo supine chin tuck x10sec to improve postural control STG Duration 2 weeks Thermoforming Operator Goal (LTG) Pt will demo supine chin tuck x30sec to improve tolerance for work LTG Duration 6 weeks 2 Impairment pain with work Short Term Goal (STG) Pt will improve quickdash score to <30% to demonstrate improved function at work STG Duration 2 weeks Correction Goal (LTG) Pt will improve quickdash to < 19% to return to I PLOF. LTG Duration 6 weeks 1 Impairment no HEP Short Term Goal (STG) Pt will be I with basic HEP for stretching and strengthening STG Duration 2 weeks Correction Goal (LTG) Pt will be I with advanced HEP for self mobilization, strengthening exercises to maximize functional return. LTG Duration 6 weeks Progress Towards Goals Progress Towards Goals Progressing Toward Goals Assessment Summary Assessment Pt has good response to ulnar nerve glides, reduced frequency for 4th-5th digit tingling. He has good HEP awareness after redirection for rhomboid/trunk rotation Physical Therapy Plan Frequency and Duration Frequency of Treatment 1-2x/ week Duration of Treatment 6 weeks Plan of Care Start Date 12/21/20 Plan of Care End Date 02/01/21 Therapeutic Interventions Therapeutic Interventions Home Exercise Program,Manual Therapy,Neuromuscular Re- education,Self-Care/Home Management,Soft Tissue Mobilization,Therapeutic Exercises Next Visit Focus/Plan Next Note Type Treatment Note Next Visit Plan re assess HEP, open book new. Mobs to Tspine and ulnar glide
--- NOTE | 2021-01-19 16:05 | PT.OTN ---
Current Diagnoses Pain in right shoulder (01/19/21) Other cervical disc degeneration, unspecified cervical region (01/19/21) Physical Therapy Treatment Note PT-OP-A Visit Information Start: 12/21/20 08:54 Freq: Status: Active Protocol: Document 01/19/21 14:33 HH (Rec: 01/19/21 16:05 [id number]) Out-Patient Physical Therapy Visit Information Visit Information Visit Type Treatment Note Visit Start Time 15:16 Visit Stop Time 16:00 Total Visit Minutes 44 Visit Number 5 PT-OP-B Current Condition Start: 12/21/20 08:54 Freq: Status: Active Protocol: Document 12/21/20 08:54 OF (Rec: 12/21/20 09:21 OF [id number]) Current Condition History of Current Condition Onset Date 06/2020 Current Complaints mid back pain, R UE tingling History of Current Condition Pt states he fell leaving work in Jun. He has had shldr/mid back/ UE pain since. 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 Prior Treatments and Tests Pt states he had chirocpractic , PT, and massage therapy in the spring Treatment Goals Patient/Caregiver Goals get back to doing work and what I want without pain Prior Functional Status Baseline Function- ADL's Independent Baseline Function- Mobility Independent Current Functional Impairments (Reported) Functional Limitations- ADL's Difficulty with any prolonged activity Functional Limitations- Work/School pain while working at computer PT-OP-C Subjective Start: 12/21/20 08:54 Freq: Status: Active Protocol: Document 01/19/21 14:33 HH (Rec: 01/19/21 16:05 [id number]) OP-PT Subjective Patient Comments Patient Comments My tingling is getting better and it's only 1-2 x/wk and goes away with the nerve glide . I still feel tight and heavy at the end of the day and after some lifting work. Patient Reported Progress Improving PT-OP-H Neuro Start: 12/21/20 08:54 Freq: Status: Active Protocol: Document 12/21/20 08:54 OF (Rec: 12/21/20 09:21 OF [id number]) Sensation Evaluation Gross Sensation Gross Sensation Left UE Impaired Sensation Description Hyperesthesia,Tingling,Burning Dermatome Impairments C8,T4 Comments Summary Comments pt reports numbness/tingling in R 4th/5th digit. Burning midscapular T spine, R >L PT-OP-K Range of Motion Start: 12/21/20 08:54 Freq: Status: Active Protocol: Document 12/21/20 08:54 OF (Rec: 12/21/20 09:21 OF [id number]) Cervical Spine Range of Motion Cervical Spine Active Testing Position Sitting Comments WNL excluding lateral flexion, limited to 10degrees bilat Shoulder Goniometric Range of Motion Shoulder Left Shoulder ROM WFL Yes Comments WNL Right Shoulder ROM WFL Yes Testing Position Sitting Comments WNL PT-OP-L Special Tests Start: 12/21/20 08:54 Freq: Status: Active Protocol: Document 12/21/20 08:54 OF (Rec: 12/21/20 09:21 OF [id number]) Special Tests Cervical Spine Special Tests Spurling's Test Test Results neg Comments no radicular symptoms R or L Neural Special Tests- Upper Body Ulnar Nerve Tension Test Results Neg PT-OP-M Strength Start: 12/21/20 08:54 Freq: Status: Active Protocol: Document 12/21/20 08:54 OF (Rec: 12/21/20 09:21 OF [id number]) Cervical Spine Strength Cervical Spine Manual Muscle Testing Flexion (C1-2) 5 Normal Extension 5 Normal Rotation Left 5 Normal Rotation Right 5 Normal Lateral Flexion Left (C3) 5 Normal Lateral Flexion Right (C3) 5 Normal PT-OP-Q Treatments Start: 12/21/20 08:54 Freq: Status: Active Protocol: Document 01/19/21 14:33 HH (Rec: 01/19/21 16:05 HH [id number]) Cardio Equipment Upper Body Ergometer (UBE) Duration (Minutes) 5 Other 30s f/b , no dsicomfort Therapeutic Exercises Sitting Exercises pulleys Sitting Exercise Name flexion, abduction Side bilateral Reps/Minutes 4 mins Standing Exercises ulnar nerve glide Standing Exercise Name with L UE assistance Side right Reps/Minutes 8 x1 Comments side bend at neck to/from rhomboid stretch Side right Reps/Minutes 10s x 3 Comments for HEP Manual Therapy Treatment Soft Tissue Mobilization bicep tendon Body Location long head Mobilization Type Sustained Pressure,Trigger Point Release Intensity/Depth Moderate Body Position Supine Comments significant toncity noted R RTC Body Location infraspinatus, teres minor Mobilization Type Sustained Pressure,Trigger Point Release Intensity/Depth Moderate Body Position Sidelying Comments significant toncity noted R scap mobs Mobilization Type Oscillations,Sustained Pressure Intensity/Depth Moderate Body Position Sidelying Comments sup/inf glides, STM for rhomboids Joint Mobilizations R scap Grade III Body Position Sidelying Reps/Duration 2 mins Comments protraction PT-OP-T Assessment and Plan Start: 12/21/20 08:54 Freq: Status: Active Protocol: Document 01/19/21 14:33 HH (Rec: 01/19/21 16:05 [id number]) Physical Therapy Assessment Goals 3 Impairment UE pain Short Term Goal (STG) Pt will demo supine chin tuck x10sec to improve postural control STG Duration 2 weeks Licensed Embalmer Goal (LTG) Pt will demo supine chin tuck x30sec to improve tolerance for work LTG Duration 6 weeks 2 Impairment pain with work Short Term Goal (STG) Pt will improve quickdash score to <30% to demonstrate improved function at work STG Duration 2 weeks Correction Goal (LTG) Pt will improve quickdash to < 19% to return to I PLOF. LTG Duration 6 weeks 1 Impairment no HEP Short Term Goal (STG) Pt will be I with basic HEP for stretching and strengthening STG Duration 2 weeks Correction Goal (LTG) Pt will be I with advanced HEP for self mobilization, strengthening exercises to maximize functional return. LTG Duration 6 weeks Assessment Summary Assessment pt reports decreased symptoms in general but continue to have generalized pain and tightness at R shoulder. Assessment shows pt has very limited flexoin, abduction, ER /IR d/t muscle tightness. His pain was less after STM. Recommended him to acquire [place] danii for ROM ex at home. Physical Therapy Plan Frequency and Duration Frequency of Treatment 1-2x/ week Duration of Treatment 6 weeks Plan of Care Start Date 12/21/20 Plan of Care End Date 02/01/21 Therapeutic Interventions Therapeutic Interventions Home Exercise Program,Manual Therapy,Neuromuscular Re- education,Self-Care/Home Management,Soft Tissue Mobilization,Therapeutic Exercises Next Visit Focus/Plan Next Note Type Treatment Note Next Visit Plan re assess HEP, open book new. Mobs to Tspine and ulnar glide
--- NOTE | 2021-01-27 16:22 | PT.OTN ---
Current Diagnoses Pain in right shoulder (01/27/21) Other cervical disc degeneration, unspecified cervical region (01/27/21) Physical Therapy Treatment Note PT-OP-A Visit Information Start: 12/21/20 08:54 Freq: Status: Active Protocol: Document 01/27/21 15:22 HH (Rec: 01/27/21 16:22 [id number]) Out-Patient Physical Therapy Visit Information Visit Information Visit Type Treatment Note Visit Start Time 15:17 Visit Stop Time 16:00 Total Visit Minutes 43 Visit Number 6 PT-OP-B Current Condition Start: 12/21/20 08:54 Freq: Status: Active Protocol: Document 12/21/20 08:54 OF (Rec: 12/21/20 09:21 OF [id number]) Current Condition History of Current Condition Onset Date 06/2020 Current Complaints mid back pain, R UE tingling History of Current Condition Pt states he fell leaving work in Jun. He has had shldr/mid back/ UE pain since. 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 Prior Treatments and Tests Pt states he had chirocpractic , PT, and massage therapy in the spring Treatment Goals Patient/Caregiver Goals get back to doing work and what I want without pain Prior Functional Status Baseline Function- ADL's Independent Baseline Function- Mobility Independent Current Functional Impairments (Reported) Functional Limitations- ADL's Difficulty with any prolonged activity Functional Limitations- Work/School pain while working at computer PT-OP-C Subjective Start: 12/21/20 08:54 Freq: Status: Active Protocol: Document 01/27/21 15:22 HH (Rec: 01/27/21 16:22 [id number]) OP-PT Subjective Patient Comments Patient Comments my shoulder and the shoulder blade were kind of painful. I still have some tingling/ numbness but not as much as before. I already got the danii but hasnt been delivered. Patient Reported Progress Improving PT-OP-H Neuro Start: 12/21/20 08:54 Freq: Status: Active Protocol: Document 12/21/20 08:54 OF (Rec: 12/21/20 09:21 OF [id number]) Sensation Evaluation Gross Sensation Gross Sensation Left UE Impaired Sensation Description Hyperesthesia,Tingling,Burning Dermatome Impairments C8,T4 Comments Summary Comments pt reports numbness/tingling in R 4th/5th digit. Burning midscapular T spine, R >L PT-OP-K Range of Motion Start: 12/21/20 08:54 Freq: Status: Active Protocol: Document 12/21/20 08:54 OF (Rec: 12/21/20 09:21 OF [id number]) Cervical Spine Range of Motion Cervical Spine Active Testing Position Sitting Comments WNL excluding lateral flexion, limited to 10degrees bilat Shoulder Goniometric Range of Motion Shoulder Left Shoulder ROM WFL Yes Comments WNL Right Shoulder ROM WFL Yes Testing Position Sitting Comments WNL PT-OP-L Special Tests Start: 12/21/20 08:54 Freq: Status: Active Protocol: Document 12/21/20 08:54 OF (Rec: 12/21/20 09:21 OF [id number]) Special Tests Cervical Spine Special Tests Spurling's Test Test Results neg Comments no radicular symptoms R or L Neural Special Tests- Upper Body Ulnar Nerve Tension Test Results Neg PT-OP-M Strength Start: 12/21/20 08:54 Freq: Status: Active Protocol: Document 12/21/20 08:54 OF (Rec: 12/21/20 09:21 OF [id number]) Cervical Spine Strength Cervical Spine Manual Muscle Testing Flexion (C1-2) 5 Normal Extension 5 Normal Rotation Left 5 Normal Rotation Right 5 Normal Lateral Flexion Left (C3) 5 Normal Lateral Flexion Right (C3) 5 Normal PT-OP-Q Treatments Start: 12/21/20 08:54 Freq: Status: Active Protocol: Document 01/27/21 15:22 HH (Rec: 01/27/21 16:22 HH [id number]) Cardio Equipment Upper Body Ergometer (UBE) Duration (Minutes) 3 Other 30s f/b , no dsicomfort Therapeutic Exercises Supine Exercises neck stretches Supine Exercise Name PT assisted, lateral flexion/ rotation Side bilateral Sidelying Exercises open book Side right Reps/Minutes 2x5 Comments cues for initiating shldr retraction with UE ABD Sitting Exercises pulleys Sitting Exercise Name flexion, abduction Side bilateral Reps/Minutes 4 mins Manual Therapy Treatment Soft Tissue Mobilization trap & levator scap Mobilization Type Myofascial Release,Sustained Pressure,Trigger Point Release Intensity/Depth Moderate Body Position Supine Comments hypertonicity at scalene and levator scap suboccipital Mobilization Type Myofascial Release,Sustained Pressure,Trigger Point Release Intensity/Depth Moderate Body Position Supine Manual Traction Cervical Details traction Body Position Supine Comments pain relief, rpeorts of tension down to R scap PT-OP-T Assessment and Plan Start: 12/21/20 08:54 Freq: Status: Active Protocol: Document 01/27/21 15:22 (Rec: 01/27/21 16:22 [id number]) Physical Therapy Assessment Goals 3 Impairment UE pain Short Term Goal (STG) Pt will demo supine chin tuck x10sec to improve postural control STG Duration 2 weeks Concrete Pipe Plant Supervisor Goal (LTG) Pt will demo supine chin tuck x30sec to improve tolerance for work LTG Duration 6 weeks 2 Impairment pain with work Short Term Goal (STG) Pt will improve quickdash score to <30% to demonstrate improved function at work STG Duration 2 weeks Longterm Goal (LTG) Pt will improve quickdash to < 19% to return to I PLOF. LTG Duration 6 weeks 1 Impairment no HEP Short Term Goal (STG) Pt will be I with basic HEP for stretching and strengthening STG Duration 2 weeks Concrete Pipe Plant Supervisor Goal (LTG) Pt will be I with advanced HEP for self mobilization, strengthening exercises to maximize functional return. LTG Duration 6 weeks Assessment Summary Assessment pt has some flare up since last week. His cervical ROM is still very limited. Spent time on manual therapy and passive neck stretches. He is going tot start shoulder danii ex once he receives it. Will assess post session tolerance. Physical Therapy Plan Frequency and Duration Frequency of Treatment 1-2x/ week Duration of Treatment 6 weeks Plan of Care Start Date 12/21/20 Plan of Care End Date 02/01/21 Therapeutic Interventions Therapeutic Interventions Home Exercise Program,Manual Therapy,Neuromuscular Re- education,Self-Care/Home Management,Soft Tissue Mobilization,Therapeutic Exercises Next Visit Focus/Plan Next Note Type Treatment Note Next Visit Plan re assess HEP, open book new. Mobs to Tspine and ulnar glide
--- NOTE | 2021-02-08 16:18 | PT.OTN ---
Current Diagnoses Pain in right shoulder (02/08/21) Other cervical disc degeneration, unspecified cervical region (02/08/21) Physical Therapy Treatment Note PT-OP-A Visit Information Start: 12/21/20 08:54 Freq: Status: Active Protocol: Document 02/08/21 14:21 (Rec: 02/08/21 16:18 [id number]) Out-Patient Physical Therapy Visit Information Visit Information Visit Type Treatment Note Visit Start Time 15:16 Visit Stop Time 16:00 Total Visit Minutes 44 Visit Number 7 PT-OP-B Current Condition Start: 12/21/20 08:54 Freq: Status: Active Protocol: Document 12/21/20 08:54 OF (Rec: 12/21/20 09:21 OF [id number]) Current Condition History of Current Condition Onset Date 06/2020 Current Complaints mid back pain, R UE tingling History of Current Condition Pt states he fell leaving work in Jun. He has had shldr/mid back/ UE pain since. 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 Prior Treatments and Tests Pt states he had chirocpractic , PT, and massage therapy in the spring Treatment Goals Patient/Caregiver Goals get back to doing work and what I want without pain Prior Functional Status Baseline Function- ADL's Independent Baseline Function- Mobility Independent Current Functional Impairments (Reported) Functional Limitations- ADL's Difficulty with any prolonged activity Functional Limitations- Work/School pain while working at computer PT-OP-C Subjective Start: 12/21/20 08:54 Freq: Status: Active Protocol: Document 02/08/21 14:21 (Rec: 02/08/21 16:18 [id number]) OP-PT Subjective Patient Comments Patient Comments my tingling part is only 2 x/ wk now. But my back and neck are kind of painful. PT-OP-H Neuro Start: 12/21/20 08:54 Freq: Status: Active Protocol: Document 12/21/20 08:54 OF (Rec: 12/21/20 09:21 OF [id number]) Sensation Evaluation Gross Sensation Gross Sensation Left UE Impaired Sensation Description Hyperesthesia,Tingling,Burning Dermatome Impairments C8,T4 Comments Summary Comments pt reports numbness/tingling in R 4th/5th digit. Burning midscapular T spine, R >L PT-OP-K Range of Motion Start: 12/21/20 08:54 Freq: Status: Active Protocol: Document 12/21/20 08:54 OF (Rec: 12/21/20 09:21 OF [id number]) Cervical Spine Range of Motion Cervical Spine Active Testing Position Sitting Comments WNL excluding lateral flexion, limited to 10degrees bilat Shoulder Goniometric Range of Motion Shoulder Left Shoulder ROM WFL Yes Comments WNL Right Shoulder ROM WFL Yes Testing Position Sitting Comments WNL PT-OP-L Special Tests Start: 12/21/20 08:54 Freq: Status: Active Protocol: Document 12/21/20 08:54 OF (Rec: 12/21/20 09:21 OF [id number]) Special Tests Cervical Spine Special Tests Spurling's Test Test Results neg Comments no radicular symptoms R or L Neural Special Tests- Upper Body Ulnar Nerve Tension Test Results Neg PT-OP-M Strength Start: 12/21/20 08:54 Freq: Status: Active Protocol: Document 12/21/20 08:54 OF (Rec: 12/21/20 09:21 OF [id number]) Cervical Spine Strength Cervical Spine Manual Muscle Testing Flexion (C1-2) 5 Normal Extension 5 Normal Rotation Left 5 Normal Rotation Right 5 Normal Lateral Flexion Left (C3) 5 Normal Lateral Flexion Right (C3) 5 Normal PT-OP-Q Treatments Start: 12/21/20 08:54 Freq: Status: Active Protocol: Document 02/08/21 14:21 HH (Rec: 02/08/21 16:18 HH [id number]) Cardio Equipment Upper Body Ergometer (UBE) Duration (Minutes) 5 Other 30s f/b , no dsicomfort Therapeutic Exercises Supine Exercises neck stretches Supine Exercise Name PT assisted, lateral flexion/ rotation Side bilateral Comments for trap and levator scap Standing Exercises neck stretches Standing Exercise Name upper trap and levator scap. Side right Reps/Minutes 15s hold x 5 Comments for HEP Manual Therapy Treatment Soft Tissue Mobilization trap & levator scap Body Location deep tissue Mobilization Type Myofascial Release,Sustained Pressure,Trigger Point Release Intensity/Depth Moderate Body Position Supine Comments hypertonicity at scalene and levator scap R RTC Body Location infraspinatus, teres minor Mobilization Type Sustained Pressure,Trigger Point Release Intensity/Depth Moderate Body Position Sidelying Comments significant toncity noted Manual Traction Cervical Details traction Body Position Supine Comments pain relief, rpeorts of tension down to R scap PT-OP-T Assessment and Plan Start: 12/21/20 08:54 Freq: Status: Active Protocol: Document 02/08/21 14:21 HH (Rec: 02/08/21 16:18 HH [id number]) Physical Therapy Assessment Goals 3 Impairment UE pain Short Term Goal (STG) Pt will demo supine chin tuck x10sec to improve postural control STG Duration 2 weeks Cosmetics Presser Goal (LTG) Pt will demo supine chin tuck x30sec to improve tolerance for work LTG Duration 6 weeks 2 Impairment pain with work Short Term Goal (STG) Pt will improve quickdash score to <30% to demonstrate improved function at work STG Duration 2 weeks [facility] Goal (LTG) Pt will improve quickdash to < 19% to return to I PLOF. LTG Duration 6 weeks 1 Impairment no HEP Short Term Goal (STG) Pt will be I with basic HEP for stretching and strengthening STG Duration 2 weeks [facility] Goal (LTG) Pt will be I with advanced HEP for self mobilization, strengthening exercises to maximize functional return. LTG Duration 6 weeks Assessment Summary Assessment pt continues to have very limited cervical rotation to R and lateral flexion bilaterally. He is still presenting cervical radiculopathy with worsening symptoms at closed pack position. This session focused on traction, neck stretches and have him focus neck stretches multiple times a day . Physical Therapy Plan Frequency and Duration Frequency of Treatment 1-2x/ week Duration of Treatment 6 weeks Plan of Care Start Date 12/21/20 Plan of Care End Date 02/01/21 Therapeutic Interventions Therapeutic Interventions Home Exercise Program,Manual Therapy,Neuromuscular Re- education,Self-Care/Home Management,Soft Tissue Mobilization,Therapeutic Exercises Next Visit Focus/Plan Next Note Type Treatment Note Next Visit Plan re assess HEP, open book new. Mobs to Tspine and ulnar glide
--- NOTE | 2021-02-08 17:00 | PT.OTN ---
Current Diagnoses Pain in right shoulder (02/08/21) Other cervical disc degeneration, unspecified cervical region (02/08/21) Physical Therapy Treatment Note PT-OP-A Visit Information Start: 12/21/20 08:54 Freq: Status: Active Protocol: Document 02/08/21 14:21 (Rec: 02/08/21 16:18 [id number]) Out-Patient Physical Therapy Visit Information Visit Information Visit Type Progress Note Visit Start Time 15:16 Visit Stop Time 16:00 Total Visit Minutes 44 Visit Number 7 PT-OP-B Current Condition Start: 12/21/20 08:54 Freq: Status: Active Protocol: Document 12/21/20 08:54 OF (Rec: 12/21/20 09:21 OF [id number]) Current Condition History of Current Condition Onset Date 06/2020 Current Complaints mid back pain, R UE tingling History of Current Condition Pt states he fell leaving work in Jun. He has had shldr/mid back/ UE pain since. 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 Prior Treatments and Tests Pt states he had chirocpractic , PT, and massage therapy in the spring Treatment Goals Patient/Caregiver Goals get back to doing work and what I want without pain Prior Functional Status Baseline Function- ADL's Independent Baseline Function- Mobility Independent Current Functional Impairments (Reported) Functional Limitations- ADL's Difficulty with any prolonged activity Functional Limitations- Work/School pain while working at computer PT-OP-C Subjective Start: 12/21/20 08:54 Freq: Status: Active Protocol: Document 02/08/21 14:21 (Rec: 02/08/21 16:18 [id number]) OP-PT Subjective Patient Comments Patient Comments my tingling part is only 2 x/ wk now. But my back and neck are kind of painful. PT-OP-H Neuro Start: 12/21/20 08:54 Freq: Status: Active Protocol: Document 12/21/20 08:54 OF (Rec: 12/21/20 09:21 OF [id number]) Sensation Evaluation Gross Sensation Gross Sensation Left UE Impaired Sensation Description Hyperesthesia,Tingling,Burning Dermatome Impairments C8,T4 Comments Summary Comments pt reports numbness/tingling in R 4th/5th digit. Burning midscapular T spine, R >L PT-OP-K Range of Motion Start: 12/21/20 08:54 Freq: Status: Active Protocol: Document 12/21/20 08:54 OF (Rec: 12/21/20 09:21 OF [id number]) Cervical Spine Range of Motion Cervical Spine Active Testing Position Sitting Comments WNL excluding lateral flexion, limited to 10degrees bilat Shoulder Goniometric Range of Motion Shoulder Left Shoulder ROM WFL Yes Comments WNL Right Shoulder ROM WFL Yes Testing Position Sitting Comments WNL PT-OP-L Special Tests Start: 12/21/20 08:54 Freq: Status: Active Protocol: Document 12/21/20 08:54 OF (Rec: 12/21/20 09:21 OF [id number]) Special Tests Cervical Spine Special Tests Spurling's Test Test Results neg Comments no radicular symptoms R or L Neural Special Tests- Upper Body Ulnar Nerve Tension Test Results Neg PT-OP-M Strength Start: 12/21/20 08:54 Freq: Status: Active Protocol: Document 12/21/20 08:54 OF (Rec: 12/21/20 09:21 OF [id number]) Cervical Spine Strength Cervical Spine Manual Muscle Testing Flexion (C1-2) 5 Normal Extension 5 Normal Rotation Left 5 Normal Rotation Right 5 Normal Lateral Flexion Left (C3) 5 Normal Lateral Flexion Right (C3) 5 Normal PT-OP-Q Treatments Start: 12/21/20 08:54 Freq: Status: Active Protocol: Document 02/08/21 14:21 HH (Rec: 02/08/21 16:18 HH [id number]) Cardio Equipment Upper Body Ergometer (UBE) Duration (Minutes) 5 Other 30s f/b , no dsicomfort Therapeutic Exercises Supine Exercises neck stretches Supine Exercise Name PT assisted, lateral flexion/ rotation Side bilateral Comments for trap and levator scap Standing Exercises neck stretches Standing Exercise Name upper trap and levator scap. Side right Reps/Minutes 15s hold x 5 Comments for HEP Manual Therapy Treatment Soft Tissue Mobilization trap & levator scap Body Location deep tissue Mobilization Type Myofascial Release,Sustained Pressure,Trigger Point Release Intensity/Depth Moderate Body Position Supine Comments hypertonicity at scalene and levator scap R RTC Body Location infraspinatus, teres minor Mobilization Type Sustained Pressure,Trigger Point Release Intensity/Depth Moderate Body Position Sidelying Comments significant toncity noted Manual Traction Cervical Details traction Body Position Supine Comments pain relief, rpeorts of tension down to R scap PT-OP-T Assessment and Plan Start: 12/21/20 08:54 Freq: Status: Active Protocol: Document 02/08/21 14:21 HH (Rec: 02/08/21 16:18 HH [id number]) Physical Therapy Assessment Goals 3 Impairment UE pain Short Term Goal (STG) 10/5 asssess next visit Pt will demo supine chin tuck x10sec to improve postural control STG Duration 2 weeks Antique Refinisher Goal (LTG) Pt will demo supine chin tuck x30sec to improve tolerance for work LTG Duration 6 weeks 2 Impairment pain with work Short Term Goal (STG) 10/5 asssess next visit Pt will improve quickdash score to <30% to demonstrate improved function at work STG Duration 2 weeks Mcc Goal (LTG) Pt will improve quickdash to < 19% to return to I PLOF. LTG Duration 6 weeks 1 Impairment no HEP Short Term Goal (STG) 10/5 asssess next visit Pt will be I with basic HEP for stretching and strengthening STG Duration 2 weeks Mcc Goal (LTG) Pt will be I with advanced HEP for self mobilization, strengthening exercises to maximize functional return. LTG Duration 6 weeks Assessment Summary Assessment pt continues to have very limited cervical rotation to R and lateral flexion bilaterally. He is still presenting cervical radiculopathy with worsening symptoms at closed pack position. This session focused on traction, neck stretches and have him focus neck stretches multiple times a day . I think pt still need skilled therapy 1x/wk x 6 weeks (pt will be gone 2 weeks for vacation) to address his limited cervical and shoulder ROM. Physical Therapy Plan Frequency and Duration Frequency of Treatment 1-2x/ week Duration of Treatment 6 weeks Plan of Care Start Date 02/08/21 Plan of Care End Date 04/10/21 Therapeutic Interventions Therapeutic Interventions Home Exercise Program,Manual Therapy,Neuromuscular Re- education,Self-Care/Home Management,Soft Tissue Mobilization,Therapeutic Exercises Modalities Cold Pack/Ice Massage,Electric Stimulation,Hot Packs, Infrared Therapy,Traction- Mechanical,Ultrasound Next Visit Focus/Plan Next Note Type Treatment Note Next Visit Plan re assess HEP, open book new. Mobs to Tspine and ulnar glide
--- NOTE | 2021-02-08 17:00 | PT.OPPOC ---
Physical, Occupational & Speech Therapy At [facility] Current Diagnoses Pain in right shoulder (02/08/21) Other cervical disc degeneration, unspecified cervical region (02/08/21) Visit Care Team Role Provider Type DENTON Carrero Attending Provider Advanced Piece Maker Primary Care Provider Referring Provider Specialty: Medical Address: [address] [place] [address], [facility] Email: [email or web address] Plan Of Care PT-OP-T Assessment and Plan Start: 12/21/20 08:54 Freq: Status: Active Protocol: Document 02/08/21 14:21 (Rec: 02/08/21 16:18 [id number]) Physical Therapy Assessment Goals 3 Impairment UE pain Short Term Goal (STG) 10/5 asssess next visit Pt will demo supine chin tuck x10sec to improve postural control STG Duration 2 weeks Retirement Goal (LTG) Pt will demo supine chin tuck x30sec to improve tolerance for work LTG Duration 6 weeks 2 Impairment pain with work Short Term Goal (STG) 10/5 asssess next visit Pt will improve quickdash score to <30% to demonstrate improved function at work STG Duration 2 weeks Retirement Goal (LTG) Pt will improve quickdash to < 19% to return to I PLOF. LTG Duration 6 weeks 1 Impairment no HEP Short Term Goal (STG) 10/5 asssess next visit Pt will be I with basic HEP for stretching and strengthening STG Duration 2 weeks Retirement Goal (LTG) Pt will be I with advanced HEP for self mobilization, strengthening exercises to maximize functional return. LTG Duration 6 weeks Assessment Summary Assessment pt continues to have very limited cervical rotation to R and lateral flexion bilaterally. He is still presenting cervical radiculopathy with worsening symptoms at closed pack position. This session focused on traction, neck stretches and have him focus neck stretches multiple times a day . I think pt still need skilled therapy 1x/wk x 6 weeks (pt will be gone 2 weeks for vacation) to address his limited cervical and shoulder ROM. Physical Therapy Plan Frequency and Duration Frequency of Treatment 1-2x/ week Duration of Treatment 6 weeks Plan of Care Start Date 02/08/21 Plan of Care End Date 04/10/21 Therapeutic Interventions Therapeutic Interventions Home Exercise Program,Manual Therapy,Neuromuscular Re- education,Self-Care/Home Management,Soft Tissue Mobilization,Therapeutic Exercises Modalities Cold Pack/Ice Massage,Electric Stimulation,Hot Packs, Infrared Therapy,Traction- Mechanical,Ultrasound Next Visit Focus/Plan Next Note Type Treatment Note Next Visit Plan re assess HEP, open book new. Mobs to Tspine and ulnar glide Plan of Care Dates Plan of Care Start Date 02/08/21 Plan of Care End Date 04/10/21 Electronically Signed by: Patrick Alex, PT 02/24/21 8016 Please Sign and Return: I have reviewed this Plan of Care and certify that the skilled therapy services above are required to meet the patient?s needs. Physician Signature Date Printed Name and Credentials Clinical Instructor Signature Printed Name and Credentials
--- NOTE | 2021-02-24 16:33 | PT.OTN ---
Current Diagnoses Pain in right shoulder (02/24/21) Other cervical disc degeneration, unspecified cervical region (02/24/21) Physical Therapy Treatment Note PT-OP-A Visit Information Start: 12/21/20 08:54 Freq: Status: Active Protocol: Document 02/24/21 15:17 HH (Rec: 02/24/21 16:32 [id number]) Out-Patient Physical Therapy Visit Information Visit Information Visit Type Progress Note Visit Start Time 15:15 Visit Stop Time 16:10 Total Visit Minutes 55 Visit Number 8 PT-OP-B Current Condition Start: 12/21/20 08:54 Freq: Status: Active Protocol: Document 12/21/20 08:54 OF (Rec: 12/21/20 09:21 OF [id number]) Current Condition History of Current Condition Onset Date 06/2020 Current Complaints mid back pain, R UE tingling History of Current Condition Pt states he fell leaving work in Jun. He has had shldr/mid back/ UE pain since. 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 Prior Treatments and Tests Pt states he had chirocpractic , PT, and massage therapy in the spring Treatment Goals Patient/Caregiver Goals get back to doing work and what I want without pain Prior Functional Status Baseline Function- ADL's Independent Baseline Function- Mobility Independent Current Functional Impairments (Reported) Functional Limitations- ADL's Difficulty with any prolonged activity Functional Limitations- Work/School pain while working at computer PT-OP-C Subjective Start: 12/21/20 08:54 Freq: Status: Active Protocol: Document 02/24/21 15:17 (Rec: 02/24/21 16:32 [id number]) OP-PT Subjective Patient Comments Patient Comments Carmen been doing more stretches . I still have numbness twice a week, and my neck still achy and painful when i move. But i do think my pain is less and PT is helpful. It's just slow so far. Patient Reported Progress Improving PT-OP-H Neuro Start: 12/21/20 08:54 Freq: Status: Active Protocol: Document 12/21/20 08:54 OF (Rec: 12/21/20 09:21 OF [id number]) Sensation Evaluation Gross Sensation Gross Sensation Left UE Impaired Sensation Description Hyperesthesia,Tingling,Burning Dermatome Impairments C8,T4 Comments Summary Comments pt reports numbness/tingling in R 4th/5th digit. Burning midscapular T spine, R >L PT-OP-K Range of Motion Start: 12/21/20 08:54 Freq: Status: Active Protocol: Document 12/21/20 08:54 OF (Rec: 12/21/20 09:21 OF [id number]) Cervical Spine Range of Motion Cervical Spine Active Testing Position Sitting Comments WNL excluding lateral flexion, limited to 10degrees bilat Shoulder Goniometric Range of Motion Shoulder Left Shoulder ROM WFL Yes Comments WNL Right Shoulder ROM WFL Yes Testing Position Sitting Comments WNL PT-OP-L Special Tests Start: 12/21/20 08:54 Freq: Status: Active Protocol: Document 12/21/20 08:54 OF (Rec: 12/21/20 09:21 OF [id number]) Special Tests Cervical Spine Special Tests Spurling's Test Test Results neg Comments no radicular symptoms R or L Neural Special Tests- Upper Body Ulnar Nerve Tension Test Results Neg PT-OP-M Strength Start: 12/21/20 08:54 Freq: Status: Active Protocol: Document 12/21/20 08:54 OF (Rec: 12/21/20 09:21 OF [id number]) Cervical Spine Strength Cervical Spine Manual Muscle Testing Flexion (C1-2) 5 Normal Extension 5 Normal Rotation Left 5 Normal Rotation Right 5 Normal Lateral Flexion Left (C3) 5 Normal Lateral Flexion Right (C3) 5 Normal PT-OP-Q Treatments Start: 12/21/20 08:54 Freq: Status: Active Protocol: Document 02/24/21 15:17 HH (Rec: 02/24/21 16:32 HH [id number]) Therapeutic Exercises Supine Exercises neck stretches Supine Exercise Name PT assisted, lateral flexion/ rotation Side bilateral Comments for trap and levator scap Sitting Exercises shoulder posterior capsule Sitting Exercise Name crossbody stretch Side right Reps/Minutes 30s x5 Comments for hEP Manual Therapy Treatment Soft Tissue Mobilization lats Mobilization Type Myofascial Release Intensity/Depth Moderate Body Position Sidelying Comments significant tenderness to pressure but improve after trap & levator scap Body Location deep tissue Mobilization Type Myofascial Release,Sustained Pressure,Trigger Point Release Intensity/Depth Moderate Body Position Supine Comments hypertonicity at scalene and levator scap R RTC Body Location infraspinatus, teres minor Mobilization Type Sustained Pressure,Trigger Point Release Intensity/Depth Moderate Body Position Sidelying Comments significant toncity noted R scap mobs Body Location rhythmic initiation on scap Comments joint mob Joint Mobilizations R GHJ Joint inferior, posterior Body Position Sidelying Reps/Duration 10 mins R scap Grade III Body Position Sidelying Reps/Duration 2 mins PT-OP-T Assessment and Plan Start: 12/21/20 08:54 Freq: Status: Active Protocol: Document 02/24/21 15:17 (Rec: 02/24/21 16:32 [id number]) Physical Therapy Assessment Goals 3 Impairment UE pain Short Term Goal (STG) 10/5 asssess next visit Pt will demo supine chin tuck x10sec to improve postural control STG Duration 2 weeks Fpc Goal (LTG) Pt will demo supine chin tuck x30sec to improve tolerance for work LTG Duration 6 weeks 2 Impairment pain with work Short Term Goal (STG) 10/5 asssess next visit Pt will improve quickdash score to <30% to demonstrate improved function at work STG Duration 2 weeks Fpc Goal (LTG) Pt will improve quickdash to < 19% to return to I PLOF. LTG Duration 6 weeks 1 Impairment no HEP Short Term Goal (STG) 02/24 pt is I for HEP Pt will be I with basic HEP for stretching and strengthening STG Duration 2 weeks Rn Or Lvn Goal (LTG) Pt will be I with advanced HEP for self mobilization, strengthening exercises to maximize functional return. LTG Duration 6 weeks Assessment Summary Assessment pt thinks he is progressing but slowly. His R shoulder AROM is still very limited but significant improved after joint mob and muscle release at Lat and shoulder internal rotators. Added posterior capsule stretch to HEP. Will cont POC and recommend once every two weeks for 3-4 more appt d/t his high copay. Physical Therapy Plan Frequency and Duration Frequency of Treatment 1-2x/ week Duration of Treatment 6 weeks Plan of Care Start Date 02/08/21 Plan of Care End Date 04/10/21 Therapeutic Interventions Therapeutic Interventions Home Exercise Program,Manual Therapy,Neuromuscular Re- education,Self-Care/Home Management,Soft Tissue Mobilization,Therapeutic Exercises Modalities Cold Pack/Ice Massage,Electric Stimulation,Hot Packs, Infrared Therapy,Traction- Mechanical,Ultrasound Next Visit Focus/Plan Next Note Type Treatment Note Next Visit Plan re assess HEP, open book new. Mobs to Tspine and ulnar glide
--- NOTE | 2021-03-03 15:47 | PT.OTN ---
Current Diagnoses Pain in right shoulder (03/03/21) Other cervical disc degeneration, unspecified cervical region (03/03/21) Physical Therapy Treatment Note PT-OP-A Visit Information Start: 12/21/20 08:54 Freq: Status: Active Protocol: Document 03/03/21 14:38 HH (Rec: 03/03/21 15:47 [id number]) Out-Patient Physical Therapy Visit Information Visit Information Visit Type Treatment Note Visit Start Time 14:30 Visit Stop Time 15:23 Total Visit Minutes 53 Visit Number 9 PT-OP-B Current Condition Start: 12/21/20 08:54 Freq: Status: Active Protocol: Document 12/21/20 08:54 OF (Rec: 12/21/20 09:21 OF [id number]) Current Condition History of Current Condition Onset Date 06/2020 Current Complaints mid back pain, R UE tingling History of Current Condition Pt states he fell leaving work in Jun. He has had shldr/mid back/ UE pain since. 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 Prior Treatments and Tests Pt states he had chirocpractic , PT, and massage therapy in the spring Treatment Goals Patient/Caregiver Goals get back to doing work and what I want without pain Prior Functional Status Baseline Function- ADL's Independent Baseline Function- Mobility Independent Current Functional Impairments (Reported) Functional Limitations- ADL's Difficulty with any prolonged activity Functional Limitations- Work/School pain while working at computer PT-OP-C Subjective Start: 12/21/20 08:54 Freq: Status: Active Protocol: Document 03/03/21 14:38 HH (Rec: 03/03/21 15:47 [id number]) OP-PT Subjective Patient Comments Patient Comments I felt pretty good after last session but I irritated my neck and shoulder after carrying luggages during my trip to [place]. Patient Reported Progress Same PT-OP-H Neuro Start: 12/21/20 08:54 Freq: Status: Active Protocol: Document 12/21/20 08:54 OF (Rec: 12/21/20 09:21 OF [id number]) Sensation Evaluation Gross Sensation Gross Sensation Left UE Impaired Sensation Description Hyperesthesia,Tingling,Burning Dermatome Impairments C8,T4 Comments Summary Comments pt reports numbness/tingling in R 4th/5th digit. Burning midscapular T spine, R >L PT-OP-K Range of Motion Start: 12/21/20 08:54 Freq: Status: Active Protocol: Document 12/21/20 08:54 OF (Rec: 12/21/20 09:21 OF [id number]) Cervical Spine Range of Motion Cervical Spine Active Testing Position Sitting Comments WNL excluding lateral flexion, limited to 10degrees bilat Shoulder Goniometric Range of Motion Shoulder Left Shoulder ROM WFL Yes Comments WNL Right Shoulder ROM WFL Yes Testing Position Sitting Comments WNL PT-OP-L Special Tests Start: 12/21/20 08:54 Freq: Status: Active Protocol: Document 12/21/20 08:54 OF (Rec: 12/21/20 09:21 OF [id number]) Special Tests Cervical Spine Special Tests Spurling's Test Test Results neg Comments no radicular symptoms R or L Neural Special Tests- Upper Body Ulnar Nerve Tension Test Results Neg PT-OP-M Strength Start: 12/21/20 08:54 Freq: Status: Active Protocol: Document 12/21/20 08:54 OF (Rec: 12/21/20 09:21 OF [id number]) Cervical Spine Strength Cervical Spine Manual Muscle Testing Flexion (C1-2) 5 Normal Extension 5 Normal Rotation Left 5 Normal Rotation Right 5 Normal Lateral Flexion Left (C3) 5 Normal Lateral Flexion Right (C3) 5 Normal PT-OP-Q Treatments Start: 12/21/20 08:54 Freq: Status: Active Protocol: Document 03/03/21 14:38 HH (Rec: 03/03/21 15:47 HH [id number]) Cardio Equipment Upper Body Ergometer (UBE) Duration (Minutes) 5 Other 30s f/b , no dsicomfort Therapeutic Exercises Sitting Exercises shoulder posterior capsule Sitting Exercise Name crossbody stretch Side right Reps/Minutes 30s x5 Comments for hEP pulleys Sitting Exercise Name flexion, abduction Side bilateral Reps/Minutes 4 mins UT stretch Side bilateral Reps/Minutes [id number] rows Equipment Used level 1 Comments for HEP Standing Exercises lat stretch Equipment Used door frame Reps/Minutes 20s hold x5 Comments for HEP Manual Therapy Treatment Soft Tissue Mobilization lats Mobilization Type Myofascial Release Intensity/Depth Moderate Body Position Sidelying Comments significant tenderness to pressure but improve after trap & levator scap Body Location deep tissue Mobilization Type Myofascial Release,Sustained Pressure,Trigger Point Release Intensity/Depth Moderate Body Position Supine Comments hypertonicity at scalene and levator scap Joint Mobilizations R GHJ Joint inferior, posterior Body Position Sidelying Reps/Duration 10 mins R scap Grade III Body Position Sidelying Reps/Duration 2 mins PT-OP-T Assessment and Plan Start: 12/21/20 08:54 Freq: Status: Active Protocol: Document 03/03/21 14:38 HH (Rec: 03/03/21 15:47 HH [id number]) Physical Therapy Assessment Goals 3 Impairment UE pain Short Term Goal (STG) 10/5 asssess next visit Pt will demo supine chin tuck x10sec to improve postural control STG Duration 2 weeks Group Home Goal (LTG) Pt will demo supine chin tuck x30sec to improve tolerance for work LTG Duration 6 weeks 2 Impairment pain with work Short Term Goal (STG) 10/5 asssess next visit Pt will improve quickdash score to <30% to demonstrate improved function at work STG Duration 2 weeks Creative Perfumer Goal (LTG) Pt will improve quickdash to < 19% to return to I PLOF. LTG Duration 6 weeks 1 Impairment no HEP Short Term Goal (STG) 02/24 pt is I for HEP Pt will be I with basic HEP for stretching and strengthening STG Duration 2 weeks Creative Perfumer Goal (LTG) Pt will be I with advanced HEP for self mobilization, strengthening exercises to maximize functional return. LTG Duration 6 weeks Assessment Summary Assessment pt came with flare up at R neck and shoulder. This session focused on increasing his R lat flexibility with manual therapy and stretch, along with joint mob at GHJ. He was able to reach overhead with reduced pain. Consolidated his HEP today. Will assess again next week Physical Therapy Plan Frequency and Duration Frequency of Treatment 1-2x/ week Duration of Treatment 6 weeks Plan of Care Start Date 02/08/21 Plan of Care End Date 04/10/21 Therapeutic Interventions Therapeutic Interventions Home Exercise Program,Manual Therapy,Neuromuscular Re- education,Self-Care/Home Management,Soft Tissue Mobilization,Therapeutic Exercises Modalities Cold Pack/Ice Massage,Electric Stimulation,Hot Packs, Infrared Therapy,Traction- Mechanical,Ultrasound Next Visit Focus/Plan Next Note Type Treatment Note Next Visit Plan re assess HEP, open book new. Mobs to Tspine and ulnar glide
--- NOTE | 2021-03-09 17:13 | PT.OTN ---
Current Diagnoses Pain in right shoulder (03/09/21) Other cervical disc degeneration, unspecified cervical region (03/09/21) Physical Therapy Treatment Note PT-OP-A Visit Information Start: 12/21/20 08:54 Freq: Status: Active Protocol: Document 03/09/21 17:06 (Rec: 03/09/21 17:10 [email or web address]) Out-Patient Physical Therapy Visit Information Visit Information Visit Type Treatment Note Visit Start Time 15:16 Visit Stop Time 16:00 Total Visit Minutes 44 Visit Number 10 PT-OP-B Current Condition Start: 12/21/20 08:54 Freq: Status: Active Protocol: Document 12/21/20 08:54 OF (Rec: 12/21/20 09:21 OF [id number]) Current Condition History of Current Condition Onset Date 06/2020 Current Complaints mid back pain, R UE tingling History of Current Condition Pt states he fell leaving work in Jun. He has had shldr/mid back/ UE pain since. 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 Prior Treatments and Tests Pt states he had chirocpractic , PT, and massage therapy in the spring Treatment Goals Patient/Caregiver Goals get back to doing work and what I want without pain Prior Functional Status Baseline Function- ADL's Independent Baseline Function- Mobility Independent Current Functional Impairments (Reported) Functional Limitations- ADL's Difficulty with any prolonged activity Functional Limitations- Work/School pain while working at computer PT-OP-C Subjective Start: 12/21/20 08:54 Freq: Status: Active Protocol: Document 03/09/21 17:06 (Rec: 03/09/21 17:10 [email or web address]) OP-PT Subjective Patient Comments Patient Comments I got sore for the first day then I was feeling better for next couple days. My shoulder was able to move more. Patient Reported Progress Improving PT-OP-H Neuro Start: 12/21/20 08:54 Freq: Status: Active Protocol: Document 12/21/20 08:54 OF (Rec: 12/21/20 09:21 OF [id number]) Sensation Evaluation Gross Sensation Gross Sensation Left UE Impaired Sensation Description Hyperesthesia,Tingling,Burning Dermatome Impairments C8,T4 Comments Summary Comments pt reports numbness/tingling in R 4th/5th digit. Burning midscapular T spine, R >L PT-OP-K Range of Motion Start: 12/21/20 08:54 Freq: Status: Active Protocol: Document 12/21/20 08:54 OF (Rec: 12/21/20 09:21 OF [id number]) Cervical Spine Range of Motion Cervical Spine Active Testing Position Sitting Comments WNL excluding lateral flexion, limited to 10degrees bilat Shoulder Goniometric Range of Motion Shoulder Left Shoulder ROM WFL Yes Comments WNL Right Shoulder ROM WFL Yes Testing Position Sitting Comments WNL PT-OP-L Special Tests Start: 12/21/20 08:54 Freq: Status: Active Protocol: Document 12/21/20 08:54 OF (Rec: 12/21/20 09:21 OF [id number]) Special Tests Cervical Spine Special Tests Spurling's Test Test Results neg Comments no radicular symptoms R or L Neural Special Tests- Upper Body Ulnar Nerve Tension Test Results Neg PT-OP-M Strength Start: 12/21/20 08:54 Freq: Status: Active Protocol: Document 12/21/20 08:54 OF (Rec: 12/21/20 09:21 OF [id number]) Cervical Spine Strength Cervical Spine Manual Muscle Testing Flexion (C1-2) 5 Normal Extension 5 Normal Rotation Left 5 Normal Rotation Right 5 Normal Lateral Flexion Left (C3) 5 Normal Lateral Flexion Right (C3) 5 Normal PT-OP-Q Treatments Start: 12/21/20 08:54 Freq: Status: Active Protocol: Document 03/09/21 17:06 HH (Rec: 03/09/21 17:10 HH [email or web address]) Therapeutic Exercises Standing Exercises pec stretch Standing Exercise Name door frame with one arm, and thoracic rotation Reps/Minutes 20s x5 Comments for hEP lat stretch Standing Exercise Name review Equipment Used door frame Reps/Minutes 20s hold x5 Comments for HEP Manual Therapy Treatment Soft Tissue Mobilization lats Mobilization Type Myofascial Release Intensity/Depth Moderate Body Position Sidelying Comments mod tenderness to pressure but improve after Joint Mobilizations MWm Joint thoracic Comments R thoracic rotation MwM at t2-T4 R GHJ Joint inferior, posterior Body Position Sidelying Reps/Duration 10 mins PT-OP-T Assessment and Plan Start: 12/21/20 08:54 Freq: Status: Active Protocol: Document 03/09/21 17:06 (Rec: 03/09/21 17:10 [email or web address]) Physical Therapy Assessment Goals 3 Impairment UE pain Short Term Goal (STG) 10 asssess next visit Pt will demo supine chin tuck x10sec to improve postural control STG Duration 2 weeks Bellows Tester Goal (LTG) Pt will demo supine chin tuck x30sec to improve tolerance for work LTG Duration 6 weeks 2 Impairment pain with work Short Term Goal (STG) 10 asssess next visit Pt will improve quickdash score to <30% to demonstrate improved function at work STG Duration 2 weeks Bellows Tester Goal (LTG) Pt will improve quickdash to < 19% to return to I PLOF. LTG Duration 6 weeks 1 Impairment no HEP Short Term Goal (STG) 02/24 pt is I for HEP Pt will be I with basic HEP for stretching and strengthening STG Duration 2 weeks [facility] Goal (LTG) Pt will be I with advanced HEP for self mobilization, strengthening exercises to maximize functional return. LTG Duration 6 weeks Assessment Summary Assessment pt shows improved r shoulder ROM before session and able to reach close to WFL after manual therapy and lat stretch . He still has very limited R thoracic rotation which impedes his R cervical rotation as well. Physical Therapy Plan Frequency and Duration Frequency of Treatment 1-2x/ week Duration of Treatment 6 weeks Plan of Care Start Date 02/08/21 Plan of Care End Date 04/10/21 Therapeutic Interventions Therapeutic Interventions Home Exercise Program,Manual Therapy,Neuromuscular Re- education,Self-Care/Home Management,Soft Tissue Mobilization,Therapeutic Exercises Modalities Cold Pack/Ice Massage,Electric Stimulation,Hot Packs, Infrared Therapy,Traction- Mechanical,Ultrasound Next Visit Focus/Plan Next Note Type Treatment Note Next Visit Plan re assess HEP, open book new. Mobs to Tspine and ulnar glide
--- NOTE | 2021-03-24 16:17 | PT.OTN ---
Current Diagnoses Pain in right shoulder (03/24/21) Other cervical disc degeneration, unspecified cervical region (03/24/21) Physical Therapy Treatment Note PT-OP-A Visit Information Start: 12/21/20 08:54 Freq: Status: Active Protocol: Document 03/24/21 15:08 (Rec: 03/24/21 16:15 [id number]) Out-Patient Physical Therapy Visit Information Visit Information Visit Type Treatment Note Visit Start Time 15:15 Visit Stop Time 16:00 Total Visit Minutes 45 Visit Number 11 PT-OP-B Current Condition Start: 12/21/20 08:54 Freq: Status: Active Protocol: Document 12/21/20 08:54 OF (Rec: 12/21/20 09:21 OF [id number]) Current Condition History of Current Condition Onset Date 06/2020 Current Complaints mid back pain, R UE tingling History of Current Condition Pt states he fell leaving work in Jun. He has had shldr/mid back/ UE pain since. 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 Prior Treatments and Tests Pt states he had chirocpractic , PT, and massage therapy in the spring Treatment Goals Patient/Caregiver Goals get back to doing work and what I want without pain Prior Functional Status Baseline Function- ADL's Independent Baseline Function- Mobility Independent Current Functional Impairments (Reported) Functional Limitations- ADL's Difficulty with any prolonged activity Functional Limitations- Work/School pain while working at computer PT-OP-C Subjective Start: 12/21/20 08:54 Freq: Status: Active Protocol: Document 03/24/21 15:08 HH (Rec: 03/24/21 16:15 [id number]) OP-PT Subjective Patient Comments Patient Comments My tingling and numbness are down to 2-3 times a week but not everyday. I do have pain to my R shoulder. Patient Reported Progress Improving PT-OP-H Neuro Start: 12/21/20 08:54 Freq: Status: Active Protocol: Document 12/21/20 08:54 OF (Rec: 12/21/20 09:21 OF [id number]) Sensation Evaluation Gross Sensation Gross Sensation Left UE Impaired Sensation Description Hyperesthesia,Tingling,Burning Dermatome Impairments C8,T4 Comments Summary Comments pt reports numbness/tingling in R 4th/5th digit. Burning midscapular T spine, R >L PT-OP-K Range of Motion Start: 12/21/20 08:54 Freq: Status: Active Protocol: Document 12/21/20 08:54 OF (Rec: 12/21/20 09:21 OF [id number]) Cervical Spine Range of Motion Cervical Spine Active Testing Position Sitting Comments WNL excluding lateral flexion, limited to 10degrees bilat Shoulder Goniometric Range of Motion Shoulder Left Shoulder ROM WFL Yes Comments WNL Right Shoulder ROM WFL Yes Testing Position Sitting Comments WNL PT-OP-L Special Tests Start: 12/21/20 08:54 Freq: Status: Active Protocol: Document 12/21/20 08:54 OF (Rec: 12/21/20 09:21 OF [id number]) Special Tests Cervical Spine Special Tests Spurling's Test Test Results neg Comments no radicular symptoms R or L Neural Special Tests- Upper Body Ulnar Nerve Tension Test Results Neg PT-OP-M Strength Start: 12/21/20 08:54 Freq: Status: Active Protocol: Document 12/21/20 08:54 OF (Rec: 12/21/20 09:21 OF [id number]) Cervical Spine Strength Cervical Spine Manual Muscle Testing Flexion (C1-2) 5 Normal Extension 5 Normal Rotation Left 5 Normal Rotation Right 5 Normal Lateral Flexion Left (C3) 5 Normal Lateral Flexion Right (C3) 5 Normal PT-OP-Q Treatments Start: 12/21/20 08:54 Freq: Status: Active Protocol: Document 03/24/21 15:08 HH (Rec: 03/24/21 16:15 HH [id number]) Therapeutic Exercises Sitting Exercises shoulder posterior capsule Sitting Exercise Name crossbody stretch Side right Reps/Minutes 30s x5 Comments for hEP thoracic rotation Sitting Exercise Name pull from table Side bilateral Reps/Minutes 20s x 5 Standing Exercises lat stretch Standing Exercise Name review Equipment Used door frame Reps/Minutes 20s hold x5 Comments for HEP Manual Therapy Treatment Soft Tissue Mobilization thoracic Body Location paraspinals Mobilization Type Myofascial Release,Sustained Pressure,Trigger Point Release Intensity/Depth Moderate Body Position Prone lats Mobilization Type Myofascial Release Intensity/Depth Moderate Body Position Sidelying Comments mod tenderness to pressure but improve after Joint Mobilizations MWm Joint thoracic Comments R thoracic rotation MwM at t2-T4 R GHJ Joint inferior, posterior Body Position Sidelying Reps/Duration 10 mins PT-OP-T Assessment and Plan Start: 12/21/20 08:54 Freq: Status: Active Protocol: Document 03/24/21 15:08 HH (Rec: 03/24/21 16:15 HH [id number]) Physical Therapy Assessment Goals 3 Impairment UE pain Short Term Goal (STG) 10 asssess next visit Pt will demo supine chin tuck x10sec to improve postural control STG Duration 2 weeks Half-Way Goal (LTG) Pt will demo supine chin tuck x30sec to improve tolerance for work LTG Duration 6 weeks 2 Impairment pain with work Short Term Goal (STG) 10 asssess next visit Pt will improve quickdash score to <30% to demonstrate improved function at work STG Duration 2 weeks Generator Mechanic Goal (LTG) Pt will improve quickdash to < 19% to return to I PLOF. LTG Duration 6 weeks 1 Impairment no HEP Short Term Goal (STG) 02/24 pt is I for HEP Pt will be I with basic HEP for stretching and strengthening STG Duration 2 weeks Generator Mechanic Goal (LTG) Pt will be I with advanced HEP for self mobilization, strengthening exercises to maximize functional return. LTG Duration 6 weeks Assessment Summary Assessment pt reports decreased neuro sign to R hand. This session focused on increased thoracic mobility, improved cervical retraction. He was able to reach [place] fully and rotate his neck fully as well. Updated his HEP today. Physical Therapy Plan Frequency and Duration Frequency of Treatment 1-2x/ week Duration of Treatment 6 weeks Plan of Care Start Date 02/08/21 Plan of Care End Date 04/10/21 Therapeutic Interventions Therapeutic Interventions Home Exercise Program,Manual Therapy,Neuromuscular Re- education,Self-Care/Home Management,Soft Tissue Mobilization,Therapeutic Exercises Modalities Cold Pack/Ice Massage,Electric Stimulation,Hot Packs, Infrared Therapy,Traction- Mechanical,Ultrasound Next Visit Focus/Plan Next Note Type Treatment Note Next Visit Plan re assess HEP, open book new. Mobs to Tspine and ulnar glide d
--- NOTE | 2021-03-29 16:13 | PT.OTN ---
Current Diagnoses Pain in right shoulder (03/29/21) Other cervical disc degeneration, unspecified cervical region (03/29/21) Physical Therapy Treatment Note PT-OP-A Visit Information Start: 12/21/20 08:54 Freq: Status: Active Protocol: Document 03/29/21 15:16 HH (Rec: 03/29/21 16:13 [id number]) Out-Patient Physical Therapy Visit Information Visit Information Visit Type Treatment Note Visit Start Time 15:15 Visit Stop Time 16:00 Total Visit Minutes 45 Visit Number 12 PT-OP-B Current Condition Start: 12/21/20 08:54 Freq: Status: Active Protocol: Document 12/21/20 08:54 OF (Rec: 12/21/20 09:21 OF [id number]) Current Condition History of Current Condition Onset Date 06/2020 Current Complaints mid back pain, R UE tingling History of Current Condition Pt states he fell leaving work in Jun. He has had shldr/mid back/ UE pain since. 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 Prior Treatments and Tests Pt states he had chirocpractic , PT, and massage therapy in the spring Treatment Goals Patient/Caregiver Goals get back to doing work and what I want without pain Prior Functional Status Baseline Function- ADL's Independent Baseline Function- Mobility Independent Current Functional Impairments (Reported) Functional Limitations- ADL's Difficulty with any prolonged activity Functional Limitations- Work/School pain while working at computer PT-OP-C Subjective Start: 12/21/20 08:54 Freq: Status: Active Protocol: Document 03/29/21 15:16 HH (Rec: 03/29/21 16:13 [id number]) OP-PT Subjective Patient Comments Patient Comments I feel about the same. Tightness and a bit pain at the top of my R shoulder. Patient Reported Progress Same PT-OP-H Neuro Start: 12/21/20 08:54 Freq: Status: Active Protocol: Document 12/21/20 08:54 OF (Rec: 12/21/20 09:21 OF [id number]) Sensation Evaluation Gross Sensation Gross Sensation Left UE Impaired Sensation Description Hyperesthesia,Tingling,Burning Dermatome Impairments C8,T4 Comments Summary Comments pt reports numbness/tingling in R 4th/5th digit. Burning midscapular T spine, R >L PT-OP-K Range of Motion Start: 12/21/20 08:54 Freq: Status: Active Protocol: Document 12/21/20 08:54 OF (Rec: 12/21/20 09:21 OF [id number]) Cervical Spine Range of Motion Cervical Spine Active Testing Position Sitting Comments WNL excluding lateral flexion, limited to 10degrees bilat Shoulder Goniometric Range of Motion Shoulder Left Shoulder ROM WFL Yes Comments WNL Right Shoulder ROM WFL Yes Testing Position Sitting Comments WNL PT-OP-L Special Tests Start: 12/21/20 08:54 Freq: Status: Active Protocol: Document 12/21/20 08:54 OF (Rec: 12/21/20 09:21 OF [id number]) Special Tests Cervical Spine Special Tests Spurling's Test Test Results neg Comments no radicular symptoms R or L Neural Special Tests- Upper Body Ulnar Nerve Tension Test Results Neg PT-OP-M Strength Start: 12/21/20 08:54 Freq: Status: Active Protocol: Document 12/21/20 08:54 OF (Rec: 12/21/20 09:21 OF [id number]) Cervical Spine Strength Cervical Spine Manual Muscle Testing Flexion (C1-2) 5 Normal Extension 5 Normal Rotation Left 5 Normal Rotation Right 5 Normal Lateral Flexion Left (C3) 5 Normal Lateral Flexion Right (C3) 5 Normal PT-OP-Q Treatments Start: 12/21/20 08:54 Freq: Status: Active Protocol: Document 03/29/21 15:16 HH (Rec: 03/29/21 16:13 HH [id number]) Therapeutic Exercises Sidelying Exercises open book Sidelying Exercise Name without UE to reach Reps/Minutes 15s x 5 Comments for HEP Sitting Exercises thoracic rotation Sitting Exercise Name pull from table, with PT assistance Side bilateral Reps/Minutes 20s x 5 Manual Therapy Treatment Soft Tissue Mobilization thoracic Body Location paraspinals Mobilization Type Myofascial Release,Sustained Pressure,Trigger Point Release Intensity/Depth Moderate Body Position Prone lats Mobilization Type Myofascial Release Intensity/Depth Moderate Body Position Sidelying Comments mod tenderness to pressure but improve after Joint Mobilizations MWm Joint thoracic Comments R thoracic rotation MwM at t2-T4 PT-OP-T Assessment and Plan Start: 12/21/20 08:54 Freq: Status: Active Protocol: Document 03/29/21 15:16 (Rec: 03/29/21 16:13 [id number]) Physical Therapy Assessment Goals 3 Impairment UE pain Short Term Goal (STG) 10 asssess next visit Pt will demo supine chin tuck x10sec to improve postural control STG Duration 2 weeks Nursing Home Goal (LTG) Pt will demo supine chin tuck x30sec to improve tolerance for work LTG Duration 6 weeks 2 Impairment pain with work Short Term Goal (STG) 10 asssess next visit Pt will improve quickdash score to <30% to demonstrate improved function at work STG Duration 2 weeks Nursing Home Goal (LTG) Pt will improve quickdash to < 19% to return to I PLOF. LTG Duration 6 weeks 1 Impairment no HEP Short Term Goal (STG) 02/24 pt is I for HEP Pt will be I with basic HEP for stretching and strengthening STG Duration 2 weeks Nursing Home Goal (LTG) Pt will be I with advanced HEP for self mobilization, strengthening exercises to maximize functional return. LTG Duration 6 weeks Assessment Summary Assessment pt still has difficulty with ROM retention after every visit. He shows improved shoulder and cervical ROM at the end of every session. I spent time educating hime to focus on thoracic rotation stretches at home. Physical Therapy Plan Frequency and Duration Frequency of Treatment 1-2x/ week Duration of Treatment 6 weeks Plan of Care Start Date 02/08/21 Plan of Care End Date 04/10/21 Therapeutic Interventions Therapeutic Interventions Home Exercise Program,Manual Therapy,Neuromuscular Re- education,Self-Care/Home Management,Soft Tissue Mobilization,Therapeutic Exercises Modalities Cold Pack/Ice Massage,Electric Stimulation,Hot Packs, Infrared Therapy,Traction- Mechanical,Ultrasound Next Visit Focus/Plan Next Note Type Treatment Note Next Visit Plan re assess HEP, open book new. Mobs to Tspine and ulnar glide
--- NOTE | 2021-04-06 16:22 | PT.OTN ---
Current Diagnoses Pain in right shoulder (04/06/21) Other cervical disc degeneration, unspecified cervical region (04/06/21) Physical Therapy Treatment Note PT-OP-A Visit Information Start: 12/21/20 08:54 Freq: Status: Active Protocol: Document 04/06/21 15:27 (Rec: 04/06/21 16:22 [id number]) Out-Patient Physical Therapy Visit Information Visit Information Visit Type Treatment Note Visit Start Time 15:18 Visit Stop Time 16:00 Total Visit Minutes 42 Visit Number 13 PT-OP-B Current Condition Start: 12/21/20 08:54 Freq: Status: Active Protocol: Document 12/21/20 08:54 OF (Rec: 12/21/20 09:21 OF [id number]) Current Condition History of Current Condition Onset Date 06/2020 Current Complaints mid back pain, R UE tingling History of Current Condition Pt states he fell leaving work in Jun. He has had shldr/mid back/ UE pain since. 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 Prior Treatments and Tests Pt states he had chirocpractic , PT, and massage therapy in the spring Treatment Goals Patient/Caregiver Goals get back to doing work and what I want without pain Prior Functional Status Baseline Function- ADL's Independent Baseline Function- Mobility Independent Current Functional Impairments (Reported) Functional Limitations- ADL's Difficulty with any prolonged activity Functional Limitations- Work/School pain while working at computer PT-OP-C Subjective Start: 12/21/20 08:54 Freq: Status: Active Protocol: Document 04/06/21 15:27 (Rec: 04/06/21 16:22 [id number]) OP-PT Subjective Patient Comments Patient Comments My neck seems to move more but my pain is more at my shoulder now. Patient Reported Progress Improving PT-OP-H Neuro Start: 12/21/20 08:54 Freq: Status: Active Protocol: Document 12/21/20 08:54 OF (Rec: 12/21/20 09:21 OF [id number]) Sensation Evaluation Gross Sensation Gross Sensation Left UE Impaired Sensation Description Hyperesthesia,Tingling,Burning Dermatome Impairments C8,T4 Comments Summary Comments pt reports numbness/tingling in R 4th/5th digit. Burning midscapular T spine, R >L PT-OP-K Range of Motion Start: 12/21/20 08:54 Freq: Status: Active Protocol: Document 12/21/20 08:54 OF (Rec: 12/21/20 09:21 OF [id number]) Cervical Spine Range of Motion Cervical Spine Active Testing Position Sitting Comments WNL excluding lateral flexion, limited to 10degrees bilat Shoulder Goniometric Range of Motion Shoulder Left Shoulder ROM WFL Yes Comments WNL Right Shoulder ROM WFL Yes Testing Position Sitting Comments WNL PT-OP-L Special Tests Start: 12/21/20 08:54 Freq: Status: Active Protocol: Document 12/21/20 08:54 OF (Rec: 12/21/20 09:21 OF [id number]) Special Tests Cervical Spine Special Tests Spurling's Test Test Results neg Comments no radicular symptoms R or L Neural Special Tests- Upper Body Ulnar Nerve Tension Test Results Neg PT-OP-M Strength Start: 12/21/20 08:54 Freq: Status: Active Protocol: Document 12/21/20 08:54 OF (Rec: 12/21/20 09:21 OF [id number]) Cervical Spine Strength Cervical Spine Manual Muscle Testing Flexion (C1-2) 5 Normal Extension 5 Normal Rotation Left 5 Normal Rotation Right 5 Normal Lateral Flexion Left (C3) 5 Normal Lateral Flexion Right (C3) 5 Normal PT-OP-Q Treatments Start: 12/21/20 08:54 Freq: Status: Active Protocol: Document 04/06/21 15:27 (Rec: 04/06/21 16:22 [id number]) Therapeutic Exercises Standing Exercises thoracic rotation Standing Exercise Name with door frame Reps/Minutes 10s hold x5 neck stretches Standing Exercise Name for cervical paraspinals, flexion with chin tuck Side bilateral Reps/Minutes 15s hold x 5 Comments for HEP rhomboid stretch Standing Exercise Name and posterior capsule Side right Reps/Minutes 10s x 3 Comments for HEP Manual Therapy Treatment Soft Tissue Mobilization trap & levator scap Body Location deep tissue Mobilization Type Myofascial Release,Sustained Pressure,Trigger Point Release Intensity/Depth Moderate Body Position Supine Comments hypertonicity at scalene and levator scap suboccipital Mobilization Type Myofascial Release,Sustained Pressure,Trigger Point Release Intensity/Depth Moderate Body Position Supine Joint Mobilizations MWm Joint thoracic Comments R thoracic rotation MwM at t2-T4 PT-OP-T Assessment and Plan Start: 12/21/20 08:54 Freq: Status: Active Protocol: Document 04/06/21 15:27 HH (Rec: 04/06/21 16:22 HH [id number]) Physical Therapy Assessment Goals 3 Impairment UE pain Short Term Goal (STG) 10 asssess next visit Pt will demo supine chin tuck x10sec to improve postural control STG Duration 2 weeks Yard Loader Operator Goal (LTG) Pt will demo supine chin tuck x30sec to improve tolerance for work LTG Duration 6 weeks 2 Impairment pain with work Short Term Goal (STG) 10 asssess next visit Pt will improve quickdash score to <30% to demonstrate improved function at work STG Duration 2 weeks Custodial Goal (LTG) Pt will improve quickdash to < 19% to return to I PLOF. LTG Duration 6 weeks 1 Impairment no HEP Short Term Goal (STG) 02/24 pt is I for HEP Pt will be I with basic HEP for stretching and strengthening STG Duration 2 weeks Yard Loader Operator Goal (LTG) Pt will be I with advanced HEP for self mobilization, strengthening exercises to maximize functional return. LTG Duration 6 weeks Assessment Summary Assessment pt shows improved active cervical R rotation today. However, pt continues to have poor body awareness and needs constant cueing regarding his stretching position. Physical Therapy Plan Frequency and Duration Frequency of Treatment 1-2x/ week Duration of Treatment 6 weeks Plan of Care Start Date 02/08/21 Plan of Care End Date 04/10/21 Therapeutic Interventions Therapeutic Interventions Home Exercise Program,Manual Therapy,Neuromuscular Re- education,Self-Care/Home Management,Soft Tissue Mobilization,Therapeutic Exercises Modalities Cold Pack/Ice Massage,Electric Stimulation,Hot Packs, Infrared Therapy,Traction- Mechanical,Ultrasound Next Visit Focus/Plan Next Note Type Treatment Note Next Visit Plan re assess HEP, open book new. Mobs to Tspine and ulnar glide
--- NOTE | 2021-04-12 16:36 | PT.OTN ---
Current Diagnoses Pain in right shoulder (04/12/21) Other cervical disc degeneration, unspecified cervical region (04/12/21) Physical Therapy Treatment Note PT-OP-A Visit Information Start: 12/21/20 08:54 Freq: Status: Active Protocol: Document 04/12/21 16:27 HH (Rec: 04/12/21 16:36 HH [email or web address]) Out-Patient Physical Therapy Visit Information Visit Information Visit Type Treatment Note Visit Start Time 14:32 Visit Stop Time 15:15 Total Visit Minutes 43 Visit Number 14 PT-OP-B Current Condition Start: 12/21/20 08:54 Freq: Status: Active Protocol: Document 12/21/20 08:54 OF (Rec: 12/21/20 09:21 OF [id number]) Current Condition History of Current Condition Onset Date 06/2020 Current Complaints mid back pain, R UE tingling History of Current Condition Pt states he fell leaving work in Jun. He has had shldr/mid back/ UE pain since. 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 Prior Treatments and Tests Pt states he had chirocpractic , PT, and massage therapy in the spring Treatment Goals Patient/Caregiver Goals get back to doing work and what I want without pain Prior Functional Status Baseline Function- ADL's Independent Baseline Function- Mobility Independent Current Functional Impairments (Reported) Functional Limitations- ADL's Difficulty with any prolonged activity Functional Limitations- Work/School pain while working at computer PT-OP-C Subjective Start: 12/21/20 08:54 Freq: Status: Active Protocol: Document 04/12/21 16:27 HH (Rec: 04/12/21 16:36 HH [email or web address]) OP-PT Subjective Patient Comments Patient Comments my neck is moving better and same as my shoulder. But they get painful easily once i do any lifting/ heavy work Patient Reported Progress Improving PT-OP-H Neuro Start: 12/21/20 08:54 Freq: Status: Active Protocol: Document 12/21/20 08:54 OF (Rec: 12/21/20 09:21 OF [id number]) Sensation Evaluation Gross Sensation Gross Sensation Left UE Impaired Sensation Description Hyperesthesia,Tingling,Burning Dermatome Impairments C8,T4 Comments Summary Comments pt reports numbness/tingling in R 4th/5th digit. Burning midscapular T spine, R >L PT-OP-K Range of Motion Start: 12/21/20 08:54 Freq: Status: Active Protocol: Document 12/21/20 08:54 OF (Rec: 12/21/20 09:21 OF [id number]) Cervical Spine Range of Motion Cervical Spine Active Testing Position Sitting Comments WNL excluding lateral flexion, limited to 10degrees bilat Shoulder Goniometric Range of Motion Shoulder Left Shoulder ROM WFL Yes Comments WNL Right Shoulder ROM WFL Yes Testing Position Sitting Comments WNL PT-OP-L Special Tests Start: 12/21/20 08:54 Freq: Status: Active Protocol: Document 12/21/20 08:54 OF (Rec: 12/21/20 09:21 OF [id number]) Special Tests Cervical Spine Special Tests Spurling's Test Test Results neg Comments no radicular symptoms R or L Neural Special Tests- Upper Body Ulnar Nerve Tension Test Results Neg PT-OP-M Strength Start: 12/21/20 08:54 Freq: Status: Active Protocol: Document 12/21/20 08:54 OF (Rec: 12/21/20 09:21 OF [id number]) Cervical Spine Strength Cervical Spine Manual Muscle Testing Flexion (C1-2) 5 Normal Extension 5 Normal Rotation Left 5 Normal Rotation Right 5 Normal Lateral Flexion Left (C3) 5 Normal Lateral Flexion Right (C3) 5 Normal PT-OP-Q Treatments Start: 12/21/20 08:54 Freq: Status: Active Protocol: Document 04/12/21 16:27 HH (Rec: 04/12/21 16:36 HH [email or web address]) Therapeutic Exercises Supine Exercises chin tuck Supine Exercise Name stretch Reps/Minutes 15s x 5 Comments for HEP 1/2 roller stretch Supine Exercise Name t/s extension Side bilateral Reps/Minutes 1min Comments 1/2 foam roller, stretching for B pecs, cues for shldr retraction. Sidelying Exercises open book Sidelying Exercise Name with UE abducted and extended Reps/Minutes 15s x 5 Comments for HEP Standing Exercises pec stretch Standing Exercise Name arms behind back Reps/Minutes 20sx 5 Comments for HEP, with cervical extension neck stretches Standing Exercise Name flexion, lateral flexion Side bilateral Reps/Minutes 15s hold x 5 Comments for HEP PT-OP-T Assessment and Plan Start: 12/21/20 08:54 Freq: Status: Active Protocol: Document 04/12/21 16:27 (Rec: 04/12/21 16:36 [email or web address]) Physical Therapy Assessment Goals shoulder ROM Impairment limited R shoulder AROM Custodial Goal (LTG) pt will regain full active shoulder flexion and abduction compared to L with minimal discomfort LTG Duration 06/07/20 3 Impairment UE pain Short Term Goal (STG) 10 asssess next visit Pt will demo supine chin tuck x10sec to improve postural control STG Duration 2 weeks Auto Mechanic Goal (LTG) 04/12 in progress pt has neurosign to R hand only 1-2 times a day for very short period of time Pt will demo supine chin tuck x30sec to improve tolerance for work LTG Duration 6 weeks 2 Impairment pain with work Short Term Goal (STG) 10 asssess next visit Pt will improve quickdash score to <30% to demonstrate improved function at work STG Duration 2 weeks Custodial Goal (LTG) Pt will improve quickdash to < 19% to return to I PLOF. LTG Duration 6 weeks 1 Impairment no HEP Short Term Goal (STG) 02/24 pt is I for HEP Pt will be I with basic HEP for stretching and strengthening STG Duration 2 weeks Custodial Goal (LTG) 04/12 in progress pt still needs occasional cues for corrective exercises d/t his poor body awareness Pt will be I with advanced HEP for self mobilization, strengthening exercises to maximize functional return. LTG Duration 6 weeks Assessment Summary Assessment although pt's progress has been slow possibly due to his poor body awareness for doing HEP, pt has shown improved cervical and R shoulder AROM since evaluation. His thoracic rotation and extension continues to be very limited. He will continue to need skilled therapy to improve his body awareness and overall mobility in order for him to complete daily tasks without pain/ limitation (lifting, carrying weighted object) Physical Therapy Plan Frequency and Duration Frequency of Treatment 1-2x/ week Duration of Treatment 6 weeks Plan of Care Start Date 04/12/21 Plan of Care End Date 05/27/21 Therapeutic Interventions Therapeutic Interventions Home Exercise Program,Manual Therapy,Neuromuscular Re- education,Self-Care/Home Management,Soft Tissue Mobilization,Therapeutic Exercises Modalities Cold Pack/Ice Massage,Electric Stimulation,Hot Packs, Infrared Therapy,Traction- Mechanical,Ultrasound Next Visit Focus/Plan Next Note Type Treatment Note Next Visit Plan re assess HEP, Tspine mob
--- NOTE | 2021-04-12 16:36 | PT.OPPOC ---
Physical, Occupational & Speech Therapy At [facility] Current Diagnoses Pain in right shoulder (04/12/21) Other cervical disc degeneration, unspecified cervical region (04/12/21) Visit Care Team Role Provider Type DENTON Carrero Attending Provider Advanced Geography Faculty Member Primary Care Provider Referring Provider Specialty: Medical Address: [address] [place] [address], [facility] Email: [email or web address] Plan Of Care PT-OP-T Assessment and Plan Start: 12/21/20 08:54 Freq: Status: Active Protocol: Document 04/12/21 16:27 HH (Rec: 04/12/21 16:36 HH [email or web address]) Physical Therapy Assessment Goals shoulder ROM Impairment limited R shoulder AROM Assisted Goal (LTG) pt will regain full active shoulder flexion and abduction compared to L with minimal discomfort LTG Duration 06/07/20 3 Impairment UE pain Short Term Goal (STG) 10/5 asssess next visit Pt will demo supine chin tuck x10sec to improve postural control STG Duration 2 weeks Emergency Management Consultant Goal (LTG) 04/12 in progress pt has neurosign to R hand only 1-2 times a day for very short period of time Pt will demo supine chin tuck x30sec to improve tolerance for work LTG Duration 6 weeks 2 Impairment pain with work Short Term Goal (STG) 10/5 asssess next visit Pt will improve quickdash score to <30% to demonstrate improved function at work STG Duration 2 weeks Assisted Goal (LTG) Pt will improve quickdash to < 19% to return to I PLOF. LTG Duration 6 weeks 1 Impairment no HEP Short Term Goal (STG) 02/24 pt is I for HEP Pt will be I with basic HEP for stretching and strengthening STG Duration 2 weeks Assisted Goal (LTG) 04/12 in progress pt still needs occasional cues for corrective exercises d/t his poor body awareness Pt will be I with advanced HEP for self mobilization, strengthening exercises to maximize functional return. LTG Duration 6 weeks Assessment Summary Assessment although pt's progress has been slow possibly due to his poor body awareness for doing HEP, pt has shown improved cervical and R shoulder AROM since evaluation. His thoracic rotation and extension continues to be very limited. He will continue to need skilled therapy to improve his body awareness and overall mobility in order for him to complete daily tasks without pain/ limitation (lifting, carrying weighted object) Physical Therapy Plan Frequency and Duration Frequency of Treatment 1-2x/ week Duration of Treatment 6 weeks Plan of Care Start Date 04/12/21 Plan of Care End Date 05/27/21 Therapeutic Interventions Therapeutic Interventions Home Exercise Program,Manual Therapy,Neuromuscular Re- education,Self-Care/Home Management,Soft Tissue Mobilization,Therapeutic Exercises Modalities Cold Pack/Ice Massage,Electric Stimulation,Hot Packs, Infrared Therapy,Traction- Mechanical,Ultrasound Next Visit Focus/Plan Next Note Type Treatment Note Next Visit Plan re assess HEP, Tspine mob Plan of Care Dates Plan of Care Start Date 04/12/21 Plan of Care End Date 05/27/21 Electronically Signed by: Patrick Alex PT 04/12/21 [id number] Please Sign and Return: I have reviewed this Plan of Care and certify that the skilled therapy services above are required to meet the patient?s needs. Physician Signature Date Printed Name and Credentials Clinical Instructor Signature Printed Name and Credentials
--- NOTE | 2021-04-19 16:22 | PT.OTN ---
Current Diagnoses Pain in right shoulder (04/19/21) Other cervical disc degeneration, unspecified cervical region (04/19/21) Physical Therapy Treatment Note PT-OP-A Visit Information Start: 12/21/20 08:54 Freq: Status: Active Protocol: Document 04/19/21 15:00 LRN (Rec: 04/19/21 16:18 LRN [id number]) Out-Patient Physical Therapy Visit Information Visit Information Visit Type Treatment Note Visit Start Time 15:00 Visit Stop Time 15:50 Total Visit Minutes 50 Visit Number [address] scan indicates DDD is present at C5-6 and C6-7, and [id number] at C4-5. PT-OP-B Current Condition Start: 12/21/20 08:54 Freq: Status: Active Protocol: Document 12/21/20 08:54 OF (Rec: 12/21/20 09:21 OF [id number]) Current Condition History of Current Condition Onset Date 06/2020 Current Complaints mid back pain, R UE tingling History of Current Condition Pt states he fell leaving work in Jun. He has had shldr/mid back/ UE pain since. 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 Prior Treatments and Tests Pt states he had chirocpractic , PT, and massage therapy in the spring Treatment Goals Patient/Caregiver Goals get back to doing work and what I want without pain Prior Functional Status Baseline Function- ADL's Independent Baseline Function- Mobility Independent Current Functional Impairments (Reported) Functional Limitations- ADL's Difficulty with any prolonged activity Functional Limitations- Work/School pain while working at computer PT-OP-C Subjective Start: 12/21/20 08:54 Freq: Status: Active Protocol: Document 04/19/21 15:00 LRN (Rec: 04/19/21 16:18 LRN [id number]) OP-PT Subjective Patient Comments Patient Comments Pain on R side of neck and shoulder, rated 4/10. Hurts and is tense. Not able to do normal stuf clean room and car, or work when moving things around. 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 PT-OP-H Neuro Start: 12/21/20 08:54 Freq: Status: Active Protocol: Document 12/21/20 08:54 OF (Rec: 12/21/20 09:21 OF [id number]) Sensation Evaluation Gross Sensation Gross Sensation Left UE Impaired Sensation Description Hyperesthesia,Tingling,Burning Dermatome Impairments C8,T4 Comments Summary Comments pt reports numbness/tingling in R 4th/5th digit. Burning midscapular T spine, R >L PT-OP-K Range of Motion Start: 12/21/20 08:54 Freq: Status: Active Protocol: Document 12/21/20 08:54 OF (Rec: 12/21/20 09:21 OF [id number]) Cervical Spine Range of Motion Cervical Spine Active Testing Position Sitting Comments WNL excluding lateral flexion, limited to 10degrees bilat Shoulder Goniometric Range of Motion Shoulder Left Shoulder ROM WFL Yes Comments WNL Right Shoulder ROM WFL Yes Testing Position Sitting Comments WNL PT-OP-L Special Tests Start: 12/21/20 08:54 Freq: Status: Active Protocol: Document 12/21/20 08:54 OF (Rec: 12/21/20 09:21 OF [id number]) Special Tests Cervical Spine Special Tests Spurling's Test Test Results neg Comments no radicular symptoms R or L Neural Special Tests- Upper Body Ulnar Nerve Tension Test Results Neg PT-OP-M Strength Start: 12/21/20 08:54 Freq: Status: Active Protocol: Document 12/21/20 08:54 OF (Rec: 12/21/20 09:21 OF [id number]) Cervical Spine Strength Cervical Spine Manual Muscle Testing Flexion (C1-2) 5 Normal Extension 5 Normal Rotation Left 5 Normal Rotation Right 5 Normal Lateral Flexion Left (C3) 5 Normal Lateral Flexion Right (C3) 5 Normal PT-OP-Q Treatments Start: 12/21/20 08:54 Freq: Status: Active Protocol: Document 04/19/21 15:00 LRN (Rec: 04/19/21 16:18 LRN [id number]) Therapeutic Exercises Supine Exercises chin tuck Supine Exercise Name stretch Reps/Minutes 15s x 4 Comments HEP review, v cuing head retraction & painfree hold Sidelying Exercises open book Sidelying Exercise Name with UE abducted and extended Reps/Minutes 15x to right Comments for HEP Sitting Exercises Open book thoracic rotation Sitting Exercise Name Open book mvmt Side bilateral Reps/Minutes 2x each Comments stopped due to pain complaints on R side. UT stretch Sitting Exercise Name Hand under buttock Side right Reps/Minutes [id number] Comments v cuing for placing R hand under buttock Standing Exercises pec stretch Standing Exercise Name arms behind back Reps/Minutes 20sx 4 Comments for HEP, with cervical extension neck stretches Standing Exercise Name lateral flexion Side bilateral Reps/Minutes 30s hold x 3 Comments for HEP Other Exercises 4 pt Other Exercise Name Cat/Camel Reps/Minutes 10x each Comments phys/v cuing for thoracic mobility Manual Therapy Treatment Manual Traction Cervical Details traction Body Position Supine Comments No significant pain reduction. At end pt c/o R subocciptal discomfort. PT-OP-R Modalities Start: 12/21/20 08:54 Freq: Status: Active Protocol: Document 04/19/21 15:00 LRN (Rec: 04/19/21 16:21 LRN [id number]) Hot Pack/Cold Pack Treatment Cold Pack Location Neck: R Suboccipital, extra towels under head. Hot pack used with Cold pack Patient Position Hooklying Treatment Duration (minutes) 10 Patient Tolerance Good Comments Bolster under legs Hot Pack Location R upper shoulder Cold pack used with Hot pack Patient Position Hooklying Treatment Duration (minutes) 10 Patient Tolerance Good Comments Bolster under legs PT-OP-T Assessment and Plan Start: 12/21/20 08:54 Freq: Status: Active Protocol: Document 04/19/21 15:00 LRN (Rec: 04/19/21 16:18 LRN [id number]) Physical Therapy Assessment Goals shoulder ROM Impairment limited R shoulder AROM Continuous Crusher Operator Goal (LTG) pt will regain full active shoulder flexion and abduction compared to L with minimal discomfort LTG Duration 06/07/20 3 Impairment UE pain Short Term Goal (STG) 10/5 asssess next visit Pt will demo supine chin tuck x10sec to improve postural control STG Duration 2 weeks Retirement Goal (LTG) 04/12 in progress pt has neurosign to R hand only 1-2 times a day for very short period of time Pt will demo supine chin tuck x30sec to improve tolerance for work LTG Duration 6 weeks 2 Impairment pain with work Short Term Goal (STG) 10/5 asssess next visit Pt will improve quickdash score to <30% to demonstrate improved function at work STG Duration 2 weeks Retirement Goal (LTG) Pt will improve quickdash to < 19% to return to I PLOF. LTG Duration 6 weeks 1 Impairment no HEP Short Term Goal (STG) 02/24 pt is I for HEP Pt will be I with basic HEP for stretching and strengthening STG Duration 2 weeks Retirement Goal (LTG) 04/12 in progress pt still needs occasional cues for corrective exercises d/t his poor body awareness Pt will be I with advanced HEP for self mobilization, strengthening exercises to maximize functional return. LTG Duration 6 weeks Assessment Summary Assessment Pt has good recall of ex's reviewed, except did not review thoracic extension over BOSU ball. Pt had decrease in R neck pain from 6/10 to 4/ 10 at end of treatment. Pt will try to monitor how long his pain relief lasts. Physical Therapy Plan Frequency and Duration Frequency of Treatment 1-2x/ week Duration of Treatment 6 weeks Plan of Care Start Date 04/12/21 Plan of Care End Date 05/27/21 Next Visit Focus/Plan Next Note Type Treatment Note Next Visit Plan re assess HEP thoracic ext (on BOSU) stretch, and assess pt' s response to ulnar glide 2 visits ago, and Tspine mob.
--- NOTE | 2021-04-26 08:15 | PT.OTN ---
Current Diagnoses Pain in right shoulder (04/26/21) Other cervical disc degeneration, unspecified cervical region (04/26/21) Physical Therapy Treatment Note PT-OP-A Visit Information Start: 12/21/20 08:54 Freq: Status: Active Protocol: Document 04/26/21 07:32 SP (Rec: 04/26/21 10:34 SP [id number]) Out-Patient Physical Therapy Visit Information Visit Information Visit Type Treatment Note Visit Start Time 07:32 Visit Stop Time 08:15 Total Visit Minutes 43 Visit Number 16 Number of HYPERION ESSBASE DEVELOPER Visits 1 Evaluation Information Evaluation Date 12/21/[address] scan indicates DDD is present at C5-6 and C6-7, and [id number] at C4-5. PT-OP-B Current Condition Start: 12/21/20 08:54 Freq: Status: Active Protocol: Document 12/21/20 08:54 OF (Rec: 12/21/20 09:21 OF [id number]) Current Condition History of Current Condition Onset Date 06/2020 Current Complaints mid back pain, R UE tingling History of Current Condition Pt states he fell leaving work in Jun. He has had shldr/mid back/ UE pain since. 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 Prior Treatments and Tests Pt states he had chirocpractic , PT, and massage therapy in the spring Treatment Goals Patient/Caregiver Goals get back to doing work and what I want without pain Prior Functional Status Baseline Function- ADL's Independent Baseline Function- Mobility Independent Current Functional Impairments (Reported) Functional Limitations- ADL's Difficulty with any prolonged activity Functional Limitations- Work/School pain while working at computer PT-OP-C Subjective Start: 12/21/20 08:54 Freq: Status: Active Protocol: Document 04/26/21 07:32 SP (Rec: 04/26/21 10:34 SP [id number]) OP-PT Subjective Patient Comments Patient Comments Pt reports still having pain over R posterior shld and neck , at times tingling in 1-2 fingers, does radial nerve glides given by son. Works at computer. Has 1/2foam roller, TB at home for equipment. PT-OP-H Neuro Start: 12/21/20 08:54 Freq: Status: Active Protocol: Document 12/21/20 08:54 OF (Rec: 12/21/20 09:21 OF [id number]) Sensation Evaluation Gross Sensation Gross Sensation Left UE Impaired Sensation Description Hyperesthesia,Tingling,Burning Dermatome Impairments C8,T4 Comments Summary Comments pt reports numbness/tingling in R 4th/5th digit. Burning midscapular T spine, R >L PT-OP-K Range of Motion Start: 12/21/20 08:54 Freq: Status: Active Protocol: Document 12/21/20 08:54 OF (Rec: 12/21/20 09:21 OF [id number]) Cervical Spine Range of Motion Cervical Spine Active Testing Position Sitting Comments WNL excluding lateral flexion, limited to 10degrees bilat Shoulder Goniometric Range of Motion Shoulder Left Shoulder ROM WFL Yes Comments WNL Right Shoulder ROM WFL Yes Testing Position Sitting Comments WNL PT-OP-L Special Tests Start: 12/21/20 08:54 Freq: Status: Active Protocol: Document 12/21/20 08:54 OF (Rec: 12/21/20 09:21 OF [id number]) Special Tests Cervical Spine Special Tests Spurling's Test Test Results neg Comments no radicular symptoms R or L Neural Special Tests- Upper Body Ulnar Nerve Tension Test Results Neg PT-OP-M Strength Start: 12/21/20 08:54 Freq: Status: Active Protocol: Document 12/21/20 08:54 OF (Rec: 12/21/20 09:21 OF [id number]) Cervical Spine Strength Cervical Spine Manual Muscle Testing Flexion (C1-2) 5 Normal Extension 5 Normal Rotation Left 5 Normal Rotation Right 5 Normal Lateral Flexion Left (C3) 5 Normal Lateral Flexion Right (C3) 5 Normal PT-OP-Q Treatments Start: 12/21/20 08:54 Freq: Status: Active Protocol: Document 04/26/21 07:32 SP (Rec: 04/26/21 10:34 SP [id number]) Therapeutic Exercises Supine Exercises neck stretches Supine Exercise Name lateral flexion/ rotation ( standing) Side bilateral Comments good form and response self trap and levator scap 1/2 roller stretch Supine Exercise Name t/s extension, introduced lay along spine for Side bilateral Equipment Used 1/2 foam roller- Cued tolerant ROM stretch Reps/Minutes 1min Comments 1/2 foam roller, stretching for B pecs, FF, Ts tolerant range for HEP. Sidelying Exercises open book Sidelying Exercise Name with UE abducted and extended better than elbow bent Side right Reps/Minutes x10 Comments CUed painfree range Sitting Exercises Open book thoracic rotation Sitting Exercise Name Open book mvmt Side bilateral Reps/Minutes 2x each Comments restricted open ROM UT stretch Sitting Exercise Name Hand under buttock- reviewed HEP Side right Reps/Minutes [id number] Comments v cuing for placing R hand under buttock Standing Exercises Self STMs Standing Exercise Name ball on wall (UT, interscap), theracane post neck MWM head nod/ turns Resistance added to HEP, will look into getting theracane Comments good feedback response decrease pain ulnar nerve glide Standing Exercise Name R UE (ulnar, radial nerve glide) Side right Reps/Minutes 8 x1 Comments side bend at neck to/from PT-OP-R Modalities Start: 12/21/20 08:54 Freq: Status: Active Protocol: Document 04/19/21 15:00 LRN (Rec: 04/19/21 16:21 LRN [id number]) Hot Pack/Cold Pack Treatment Cold Pack Location Neck: R Suboccipital, extra towels under head. 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 Goal (LTG) pt will regain full active shoulder flexion and abduction compared to L with minimal discomfort LTG Duration 06/07/20 3 Impairment UE pain Short Term Goal (STG) 10/5 asssess next visit Pt will demo supine chin tuck x10sec to improve postural control STG Duration 2 weeks Flame Cutting Supervisor Goal (LTG) 127 in progress pt has neurosign to R hand only 1-2 times a day for very short period of time Pt will demo supine chin tuck x30sec to improve tolerance for work LTG Duration 6 weeks 2 Impairment pain with work Short Term Goal (STG) 02/08 asssess next visit Pt will improve quickdash score to <30% to demonstrate improved function at work STG Duration 2 weeks [facility] Goal (LTG) Pt will improve quickdash to < 19% to return to I PLOF. LTG Duration 6 weeks 1 Impairment no HEP Short Term Goal (STG) 02/24 pt is I for HEP Pt will be I with basic HEP for stretching and strengthening STG Duration 2 weeks [facility] Goal (LTG) 04/12 in progress pt still needs occasional cues for corrective exercises d/t his poor body awareness Pt will be I with advanced HEP for self mobilization, strengthening exercises to maximize functional return. LTG Duration 6 weeks Assessment Summary Assessment Pt responded welll to manual and understanding self application use of tennis ball in sock on wall, theracane for posterior neck will look into getting. Much time spent on HEP review and tolerant ROM activities painfree. Pt reported decrease tightness end tx, gained little more ROM . Check ROM measurements next for data. Physical Therapy Plan Frequency and Duration Frequency of Treatment 1-2x/ week Duration of Treatment 6 weeks Plan of Care Start Date 04/12/21 Plan of Care End Date 05/27/21 Therapeutic Interventions Therapeutic Interventions Home Exercise Program,Manual Therapy,Neuromuscular Re- education,Self-Care/Home Management,Soft Tissue Mobilization,Therapeutic Exercises Modalities Cold Pack/Ice Massage,Electric Stimulation,Hot Packs, Infrared Therapy,Traction- Mechanical,Ultrasound Next Visit Focus/Plan Next Note Type Treatment Note Next Visit Plan Recheck HEP stretch, Ulnar/ Radial nerve glide, ROM, self STMs theracane/ ball wall.- Give provided handouts for form, didn't have time to print and pt stated knew what to do for now. POC: ROM, manual.
--- NOTE | 2021-05-19 16:02 | PT.OTN ---
Current Diagnoses Pain in right shoulder (05/19/21) Other cervical disc degeneration, unspecified cervical region (05/19/21) Physical Therapy Treatment Note PT-OP-A Visit Information Start: 12/21/20 08:54 Freq: Status: Active Protocol: Document 05/19/21 15:55 AW (Rec: 05/19/21 15:59 AW [id number]) Out-Patient Physical Therapy Visit Information Visit Information Visit Type Treatment Note Visit Start Time 15:20 Visit Stop Time 16:00 Total Visit Minutes 40 Visit Number 17 Number of LABORATORY ANIMAL FACILITY SUPERVISOR Visits 0 Evaluation Information Evaluation Date 12/21/[address] scan indicates DDD is present at C5-6 and C6-7, and [id number] at C4-5. PT-OP-B Current Condition Start: 12/21/20 08:54 Freq: Status: Active Protocol: Document 12/21/20 08:54 OF (Rec: 12/21/20 09:21 OF [id number]) Current Condition History of Current Condition Onset Date 06/2020 Current Complaints mid back pain, R UE tingling History of Current Condition Pt states he fell leaving work in Jun. He has had shldr/mid back/ UE pain since. 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 Prior Treatments and Tests Pt states he had chirocpractic , PT, and massage therapy in the spring Treatment Goals Patient/Caregiver Goals get back to doing work and what I want without pain Prior Functional Status Baseline Function- ADL's Independent Baseline Function- Mobility Independent Current Functional Impairments (Reported) Functional Limitations- ADL's Difficulty with any prolonged activity Functional Limitations- Work/School pain while working at computer PT-OP-C Subjective Start: 12/21/20 08:54 Freq: Status: Active Protocol: Document 05/19/21 15:55 AW (Rec: 05/19/21 15:59 AW [id number]) OP-PT Subjective Patient Comments Patient Comments Pt had COVID over and he feels it exacerbated his neck and back symptoms. Went back to work this Sunday . He bought a theracane and he thinks it has been helpful PT-OP-H Neuro Start: 12/21/20 08:54 Freq: Status: Active Protocol: Document 12/21/20 08:54 OF (Rec: 12/21/20 09:21 OF [id number]) Sensation Evaluation Gross Sensation Gross Sensation Left UE Impaired Sensation Description Hyperesthesia,Tingling,Burning Dermatome Impairments C8,T4 Comments Summary Comments pt reports numbness/tingling in R 4th/5th digit. Burning midscapular T spine, R >L PT-OP-K Range of Motion Start: 12/21/20 08:54 Freq: Status: Active Protocol: Document 12/21/20 08:54 OF (Rec: 12/21/20 09:21 OF [id number]) Cervical Spine Range of Motion Cervical Spine Active Testing Position Sitting Comments WNL excluding lateral flexion, limited to 10degrees bilat Shoulder Goniometric Range of Motion Shoulder Left Shoulder ROM WFL Yes Comments WNL Right Shoulder ROM WFL Yes Testing Position Sitting Comments WNL PT-OP-L Special Tests Start: 12/21/20 08:54 Freq: Status: Active Protocol: Document 12/21/20 08:54 OF (Rec: 12/21/20 09:21 OF [id number]) Special Tests Cervical Spine Special Tests Spurling's Test Test Results neg Comments no radicular symptoms R or L Neural Special Tests- Upper Body Ulnar Nerve Tension Test Results Neg PT-OP-M Strength Start: 12/21/20 08:54 Freq: Status: Active Protocol: Document 12/21/20 08:54 OF (Rec: 12/21/20 09:21 OF [id number]) Cervical Spine Strength Cervical Spine Manual Muscle Testing Flexion (C1-2) 5 Normal Extension 5 Normal Rotation Left 5 Normal Rotation Right 5 Normal Lateral Flexion Left (C3) 5 Normal Lateral Flexion Right (C3) 5 Normal PT-OP-Q Treatments Start: 12/21/20 08:54 Freq: Status: Active Protocol: Document 05/19/21 15:55 AW (Rec: 05/19/21 15:59 AW [id number]) Therapeutic Exercises Supine Exercises neck stretches Supine Exercise Name lateral flexion/ rotation ( standing) Side bilateral Comments dec rotation to the right Sidelying Exercises open book Sidelying Exercise Name with UE abducted and extended better than elbow bent Side right Reps/Minutes x10 Comments improved ROM Sitting Exercises Open book thoracic rotation Sitting Exercise Name Open book mvmt Side bilateral Reps/Minutes 2x each UT stretch Sitting Exercise Name Hand under buttock- reviewed HEP Side right Reps/Minutes [id number] Comments v cuing for placing R hand under buttock Standing Exercises neck stretches Standing Exercise Name lateral flexion Side bilateral Reps/Minutes 30s hold x 3 Comments for HEP Manual Therapy Treatment Soft Tissue Mobilization thoracic Body Location paraspinals Mobilization Type Myofascial Release,Sustained Pressure,Trigger Point Release Intensity/Depth Moderate Body Position Prone PT-OP-R Modalities Start: 12/21/20 08:54 Freq: Status: Active Protocol: Document 04/19/21 15:00 LRN (Rec: 04/19/21 16:21 LRN [id number]) Hot Pack/Cold Pack Treatment Cold Pack Location Neck: R Suboccipital, extra towels under head. Hot pack used with Cold pack Patient Position Hooklying Treatment Duration (minutes) 10 Patient Tolerance Good Comments Bolster under legs Hot Pack Location R upper shoulder Cold pack used with Hot pack Patient Position Hooklying Treatment Duration (minutes) 10 Patient Tolerance Good Comments Bolster under legs PT-OP-T Assessment and Plan Start: 12/21/20 08:54 Freq: Status: Active Protocol: Document 05/19/21 15:55 AW (Rec: 05/19/21 16:02 AW [id number]) Physical Therapy Assessment Goals shoulder ROM Impairment limited R shoulder AROM [facility] Goal (LTG) pt will regain full active shoulder flexion and abduction compared to L with minimal discomfort LTG Duration 06/07/20 3 Impairment UE pain Short Term Goal (STG) 10 asssess next visit Pt will demo supine chin tuck x10sec to improve postural control STG Duration 2 weeks Ferryboat Captain Goal (LTG) 04/12 in progress pt has neurosign to R hand only 1-2 times a day for very short period of time Pt will demo supine chin tuck x30sec to improve tolerance for work LTG Duration 6 weeks 2 Impairment pain with work Short Term Goal (STG) 10 asssess next visit Pt will improve quickdash score to <30% to demonstrate improved function at work STG Duration 2 weeks [facility] Goal (LTG) Pt will improve quickdash to < 19% to return to I PLOF. LTG Duration 6 weeks 1 Impairment no HEP Short Term Goal (STG) 02/24 pt is I for HEP Pt will be I with basic HEP for stretching and strengthening STG Duration 2 weeks Ferryboat Captain Goal (LTG) 04/12 in progress pt still needs occasional cues for corrective exercises d/t his poor body awareness Pt will be I with advanced HEP for self mobilization, strengthening exercises to maximize functional return. LTG Duration 6 weeks Assessment Summary Assessment Pt had to cancel appointments due to COVID infection. He is feeling better now but feels his activity tolerance has suffered. UE and neck symptoms remain largely unchanged. Reviewed HEP stretches today to ease back in to therapy activity. Physical Therapy Plan Frequency and Duration Frequency of Treatment 1-2x/ week Duration of Treatment 6 weeks Plan of Care Start Date 04/12/21 Plan of Care End Date 05/27/21 Therapeutic Interventions Therapeutic Interventions Home Exercise Program,Manual Therapy,Neuromuscular Re- education,Self-Care/Home Management,Soft Tissue Mobilization,Therapeutic Exercises Modalities Cold Pack/Ice Massage,Electric Stimulation,Hot Packs, Infrared Therapy,Traction- Mechanical,Ultrasound Next Visit Focus/Plan Next Note Type Treatment Note Next Visit Plan ASSESS GOALS _ ROM Recheck HEP stretch, Ulnar/ Radial nerve glide, ROM, self STMs theracane/ ball wall.- Give provided handouts for form, didn't have time to print and pt stated knew what to do for now. POC: ROM, manual.
--- NOTE | 2021-05-26 16:18 | PT.OTN ---
Current Diagnoses Pain in right shoulder (05/26/21) Other cervical disc degeneration, unspecified cervical region (05/26/21) Physical Therapy Treatment Note PT-OP-A Visit Information Start: 12/21/20 08:54 Freq: Status: Active Protocol: Document 05/26/21 16:00 AW (Rec: 05/26/21 16:18 AW [id number]) Out-Patient Physical Therapy Visit Information Visit Information Visit Type Progress Note Visit Start Time 15:15 Visit Stop Time 16:00 Total Visit Minutes 45 Visit Number 18 Number of PC TECH Visits 0 Evaluation Information Evaluation Date 12/21/[address] scan indicates DDD is present at C5-6 and C6-7, and [id number] at C4-5. PT-OP-B Current Condition Start: 12/21/20 08:54 Freq: Status: Active Protocol: Document 12/21/20 08:54 OF (Rec: 12/21/20 09:21 OF [id number]) Current Condition History of Current Condition Onset Date 06/2020 Current Complaints mid back pain, R UE tingling History of Current Condition Pt states he fell leaving work in Jun. He has had shldr/mid back/ UE pain since. 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 Prior Treatments and Tests Pt states he had chirocpractic , PT, and massage therapy in the spring Treatment Goals Patient/Caregiver Goals get back to doing work and what I want without pain Prior Functional Status Baseline Function- ADL's Independent Baseline Function- Mobility Independent Current Functional Impairments (Reported) Functional Limitations- ADL's Difficulty with any prolonged activity Functional Limitations- Work/School pain while working at computer PT-OP-C Subjective Start: 12/21/20 08:54 Freq: Status: Active Protocol: Document 05/26/21 16:00 AW (Rec: 05/26/21 16:18 AW [id number]) OP-PT Subjective Patient Comments Patient Comments Pt states his symptoms have improved over time in terms of severity but that they are as frequent as before or possibly even more persistent. Patient Reported Progress Improving Patient Questionnaires Quick Dash- Upper Extremity Quick Dash UE Score 55 Quick Dash UE Impairment 40 to 59% Impaired (Score 40- 59) PT-OP-H Neuro Start: 12/21/20 08:54 Freq: Status: Active Protocol: Document 12/21/20 08:54 OF (Rec: 12/21/20 09:21 OF [id number]) Sensation Evaluation Gross Sensation Gross Sensation Left UE Impaired Sensation Description Hyperesthesia,Tingling,Burning Dermatome Impairments C8,T4 Comments Summary Comments pt reports numbness/tingling in R 4th/5th digit. Burning midscapular T spine, R >L PT-OP-K Range of Motion Start: 12/21/20 08:54 Freq: Status: Active Protocol: Document 12/21/20 08:54 OF (Rec: 12/21/20 09:21 OF [id number]) Cervical Spine Range of Motion Cervical Spine Active Testing Position Sitting Comments WNL excluding lateral flexion, limited to 10degrees bilat Shoulder Goniometric Range of Motion Shoulder Left Shoulder ROM WFL Yes Comments WNL Right Shoulder ROM WFL Yes Testing Position Sitting Comments WNL PT-OP-L Special Tests Start: 12/21/20 08:54 Freq: Status: Active Protocol: Document 12/21/20 08:54 OF (Rec: 12/21/20 09:21 OF [id number]) Special Tests Cervical Spine Special Tests Spurling's Test Test Results neg Comments no radicular symptoms R or L Neural Special Tests- Upper Body Ulnar Nerve Tension Test Results Neg PT-OP-M Strength Start: 12/21/20 08:54 Freq: Status: Active Protocol: Document 12/21/20 08:54 OF (Rec: 12/21/20 09:21 OF [id number]) Cervical Spine Strength Cervical Spine Manual Muscle Testing Flexion (C1-2) 5 Normal Extension 5 Normal Rotation Left 5 Normal Rotation Right 5 Normal Lateral Flexion Left (C3) 5 Normal Lateral Flexion Right (C3) 5 Normal PT-OP-Q Treatments Start: 12/21/20 08:54 Freq: Status: Active Protocol: Document 05/26/21 16:00 AW (Rec: 05/26/21 16:18 AW [id number]) Therapeutic Exercises Supine Exercises chin tuck Supine Exercise Name stretch Reps/Minutes 15s x 4 Comments HEP review, v cuing head retraction & painfree hold 1/2 roller stretch Supine Exercise Name pec stretch Side bilateral Equipment Used 1/2 foam roller- Cued tolerant ROM stretch Reps/Minutes 1min Comments pec stretch on 1/2 foam roll; combined with desensitization work Sitting Exercises Open book thoracic rotation Sitting Exercise Name Open book mvmt Side bilateral Comments open and closed chain (with stab R shoulder) UT stretch Sitting Exercise Name with towel to anchor shoulder Side right Reps/Minutes [id number] Comments v cues for tolerable ROM; lift ear toward ceiling Standing Exercises ulnar nerve glide Standing Exercise Name R UE (ulnar, radial nerve glide) Side right Reps/Minutes 8 x1 Comments HEP review Manual Therapy Treatment Soft Tissue Mobilization trap & levator scap Body Location deep tissue Mobilization Type Myofascial Release,Sustained Pressure,Trigger Point Release Intensity/Depth Moderate Body Position Sidelying Comments hypertonicity at right upper trap R scap mobs Comments joint mob into depression and adduction Joint Mobilizations R GHJ Joint inferior, posterior Body Position Supine Reps/Duration 5 min Comments MWM into abduction and ER (45 deg abd) R GH PT-OP-R Modalities Start: 12/21/20 08:54 Freq: Status: Active Protocol: Document 04/19/21 15:00 LRN (Rec: 04/19/21 16:21 LRN [id number]) Hot Pack/Cold Pack Treatment Cold Pack Location Neck: R Suboccipital, extra towels under head. 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 (LTG) pt will regain full active shoulder flexion and abduction compared to L with minimal discomfort 05/26/21 - Pt continues to lack 25-30 degrees AROM into flexion and abduction compared with left side LTG Duration 07/21/21 3 Impairment UE pain Short Term Goal (STG) 10/5 asssess next visit Pt will demo supine chin tuck x10sec to improve postural control STG Duration 2 weeks 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 05/26/21 - 55% on QuickDash today LTG Duration 07/21/21 1 Impairment no HEP Short Term Goal (STG) 02/24 pt is I for HEP Pt will be I with basic HEP for stretching and strengthening STG Duration 2 weeks Group Home Goal (LTG) 04/12 in progress pt still needs occasional cues for corrective exercises d/t his poor body awareness Pt will be I with advanced HEP for self mobilization, strengthening exercises to maximize functional return. LTG Duration 07/21/21 Progress Towards Goals Progress Towards Goals Progressing Toward Goals,Slow Progress due to Attendance Issues,Slow Progress due to Medical Issues Progress Comments Pt missed several appointments in current POC due to illness . He continues to have function-limiting neck, shoulder, and RUE pain. He would benefit from continued therapy services to improve daily and work function. Assessment Summary Assessment Introduced desensitization exercise today using rough washcloth at right wrist and hand. Pt reported mild decrease in pain symptoms during and after treatment. Instructed pt to have his perform shoulder depression during active upper trap stretch. Physical Therapy Plan Frequency and Duration Frequency of Treatment 1-2x/ week Duration of Treatment 8 weeks Plan of Care Start Date 05/26/21 Plan of Care End Date 07/21/21 Therapeutic Interventions Therapeutic Interventions Home Exercise Program,Manual Therapy,Neuromuscular Re- education,Self-Care/Home Management,Soft Tissue Mobilization,Therapeutic Exercises Modalities Cold Pack/Ice Massage,Electric Stimulation,Hot Packs, Infrared Therapy,Traction- Mechanical,Ultrasound Next Visit Focus/Plan Next Note Type Treatment Note Next Visit Plan Recheck HEP stretch, Ulnar/ Radial nerve glide, ROM, self STMs theracane/ ball wall.- Give provided handouts for form, didn't have time to print and pt stated knew what to do for now. POC: ROM, manual.
--- NOTE | 2021-05-26 16:18 | PT.OPPOC ---
Physical, Occupational & Speech Therapy At [facility] Current Diagnoses Pain in right shoulder (05/26/21) Other cervical disc degeneration, unspecified cervical region (05/26/21) Visit Care Team Role Provider Type DENTON Carrero Attending Provider Advanced Sander And Buffer Primary Care Provider Referring Provider Specialty: Medical Address: [address] [place] [address], [facility] Email: [email or web address] Plan Of Care PT-OP-T Assessment and Plan Start: 12/21/20 08:54 Freq: Status: Active Protocol: Document 05/26/21 16:00 AW (Rec: 05/26/21 16:18 AW [id number]) Physical Therapy Assessment Goals shoulder ROM Impairment limited R shoulder AROM 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 (LTG) pt will regain full active shoulder flexion and abduction compared to L with minimal discomfort 05/26/21 - Pt continues to lack 25-30 degrees AROM into flexion and abduction compared with left side LTG Duration 07/21/21 3 Impairment UE pain Short Term Goal (STG) 10 asssess next visit Pt will demo supine chin tuck x10sec to improve postural control STG Duration 2 weeks 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 (LTG) 04/12 in progress pt has neurosign to R hand only 1-2 times a day for very short period of time 05/26/21 - Pt continues to have neuro sign R wrist and hand - most pronounced with wrist flexion Pt will demo supine chin tuck x30sec to improve tolerance for work LTG Duration 07/21/21 2 Impairment pain with work Short Term Goal (STG) 10 asssess next visit Pt will improve quickdash score to <30% to demonstrate improved function at work STG Duration 2 weeks Care Home Goal (LTG) Pt will improve quickdash to < 19% to return to I PLOF. 05/26/21 - 55% on QuickDash today LTG Duration 07/21/21 1 Impairment no HEP Short Term Goal (STG) 02/24 pt is I for HEP Pt will be I with basic HEP for stretching and strengthening STG Duration 2 weeks 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 (LTG) 04/12 in progress pt still needs occasional cues for corrective exercises d/t his poor body awareness Pt will be I with advanced HEP for self mobilization, strengthening exercises to maximize functional return. LTG Duration 07/21/21 Progress Towards Goals Progress Towards Goals Progressing Toward Goals,Slow Progress due to Attendance Issues,Slow Progress due to Medical Issues Progress Comments Pt missed several appointments in current POC due to illness . He continues to have function-limiting neck, shoulder, and RUE pain. He would benefit from continued therapy services to improve daily and work function. Assessment Summary Assessment Introduced desensitization exercise today using rough washcloth at right wrist and hand. Pt reported mild decrease in pain symptoms during and after treatment. Instructed pt to have his perform shoulder depression during active upper trap stretch. Physical Therapy Plan Frequency and Duration Frequency of Treatment 1-2x/ week Duration of Treatment 8 weeks Plan of Care Start Date 05/26/21 Plan of Care End Date 07/21/21 Therapeutic Interventions Therapeutic Interventions Home Exercise Program,Manual Therapy,Neuromuscular Re- education,Self-Care/Home Management,Soft Tissue Mobilization,Therapeutic Exercises Modalities Cold Pack/Ice Massage,Electric Stimulation,Hot Packs, Infrared Therapy,Traction- Mechanical,Ultrasound Next Visit Focus/Plan Next Note Type Treatment Note Next Visit Plan Recheck HEP stretch, Ulnar/ Radial nerve glide, ROM, self STMs theracane/ ball wall.- Give provided handouts for form, didn't have time to print and pt stated knew what to do for now. POC: ROM, manual. Plan of Care Dates Plan of Care Start Date 05/26/21 Plan of Care End Date 07/21/21 Electronically Signed by: Viktoria Hennessy, PT 05/26/21 6222 Please Sign and Return: I have reviewed this Plan of Care and certify that the skilled therapy services above are required to meet the patient?s needs. Physician Signature Date Printed Name and Credentials Clinical Instructor Signature Printed Name and Credentials
--- NOTE | 2021-06-02 17:00 | PT.OTN ---
Current Diagnoses Pain in right shoulder (06/02/21) Other cervical disc degeneration, unspecified cervical region (06/02/21) Physical Therapy Treatment Note PT-OP-A Visit Information Start: 12/21/20 08:54 Freq: Status: Active Protocol: Document 06/02/21 15:14 AW (Rec: 06/02/21 16:01 AW [id number]) Out-Patient Physical Therapy Visit Information Visit Information Visit Type Treatment Note Visit Start Time 15:15 Visit Stop Time 16:00 Total Visit Minutes 45 Visit Number 19 Number of TECHNICAL BUSINESS ANALYST Visits 0 Evaluation Information Evaluation Date 12/21/[address] scan indicates DDD is present at C5-6 and C6-7, and [id number] at C4-5. PT-OP-B Current Condition Start: 12/21/20 08:54 Freq: Status: Active Protocol: Document 12/21/20 08:54 OF (Rec: 12/21/20 09:21 OF [id number]) Current Condition History of Current Condition Onset Date 06/2020 Current Complaints mid back pain, R UE tingling History of Current Condition Pt states he fell leaving work in Jun. He has had shldr/mid back/ UE pain since. 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 Prior Treatments and Tests Pt states he had chirocpractic , PT, and massage therapy in the spring Treatment Goals Patient/Caregiver Goals get back to doing work and what I want without pain Prior Functional Status Baseline Function- ADL's Independent Baseline Function- Mobility Independent Current Functional Impairments (Reported) Functional Limitations- ADL's Difficulty with any prolonged activity Functional Limitations- Work/School pain while working at computer PT-OP-C Subjective Start: 12/21/20 08:54 Freq: Status: Active Protocol: Document 06/02/21 15:14 AW (Rec: 06/02/21 16:01 AW [id number]) OP-PT Subjective Patient Comments Patient Comments Desensitization helped with arm/hand sensation disturbance . Pt continues at home. PT-OP-H Neuro Start: 12/21/20 08:54 Freq: Status: Active Protocol: Document 12/21/20 08:54 OF (Rec: 12/21/20 09:21 OF [id number]) Sensation Evaluation Gross Sensation Gross Sensation Left UE Impaired Sensation Description Hyperesthesia,Tingling,Burning Dermatome Impairments C8,T4 Comments Summary Comments pt reports numbness/tingling in R 4th/5th digit. Burning midscapular T spine, R >L PT-OP-K Range of Motion Start: 12/21/20 08:54 Freq: Status: Active Protocol: Document 12/21/20 08:54 OF (Rec: 12/21/20 09:21 OF [id number]) Cervical Spine Range of Motion Cervical Spine Active Testing Position Sitting Comments WNL excluding lateral flexion, limited to 10degrees bilat Shoulder Goniometric Range of Motion Shoulder Left Shoulder ROM WFL Yes Comments WNL Right Shoulder ROM WFL Yes Testing Position Sitting Comments WNL PT-OP-L Special Tests Start: 12/21/20 08:54 Freq: Status: Active Protocol: Document 12/21/20 08:54 OF (Rec: 12/21/20 09:21 OF [id number]) Special Tests Cervical Spine Special Tests Spurling's Test Test Results neg Comments no radicular symptoms R or L Neural Special Tests- Upper Body Ulnar Nerve Tension Test Results Neg PT-OP-M Strength Start: 12/21/20 08:54 Freq: Status: Active Protocol: Document 12/21/20 08:54 OF (Rec: 12/21/20 09:21 OF [id number]) Cervical Spine Strength Cervical Spine Manual Muscle Testing Flexion (C1-2) 5 Normal Extension 5 Normal Rotation Left 5 Normal Rotation Right 5 Normal Lateral Flexion Left (C3) 5 Normal Lateral Flexion Right (C3) 5 Normal PT-OP-Q Treatments Start: 12/21/20 08:54 Freq: Status: Active Protocol: Document 06/02/21 15:14 AW (Rec: 06/02/21 16:01 AW [id number]) Cardio Equipment Upper Body Ergometer (UBE) Duration (Minutes) 5 RPM 60 Seat Position 8 Other 30s f/b , no dsicomfort Therapeutic Exercises Supine Exercises 1/2 roller stretch Supine Exercise Name pec stretch Side bilateral Equipment Used 1/2 foam roller- Cued tolerant ROM stretch Reps/Minutes 1min Comments pec stretch on 1/2 foam roll; combined with desensitization work Prone Exercises prone press up Prone Exercise Name prone press up Comments with elbows at sides; limited excursion noted Sidelying Exercises open book Sidelying Exercise Name with UE abducted and extended better than elbow bent Side right Reps/Minutes x10 Comments improved ROM Sitting Exercises resisted scapular depression Sitting Exercise Name resisted scapular depression Side bilateral Resistance manual resistance by PT pulleys Sitting Exercise Name flexion, abduction Side bilateral Reps/Minutes 4 mins Comments cued head turns and deep breath at end range Standing Exercises row Standing Exercise Name row Side bilateral Resistance TB2 Comments HEP thoracic rotation Side bilateral Resistance TB2 Reps/Minutes 5s hold x10 Therapeutic Activity Therapeutic Activity diaphragmatic breathing Name diaphragmatic breathing Comments for rib mobility and pain management Manual Therapy Treatment Soft Tissue Mobilization thoracic Body Location paraspinals Mobilization Type Myofascial Release,Sustained Pressure,Trigger Point Release Intensity/Depth Moderate Body Position Prone R scap mobs Comments joint mob into depression and adduction Joint Mobilizations R GHJ Joint inferior, posterior Body Position Supine Reps/Duration 5 min Comments MWM into abduction and ER (45 deg abd) R GH PT-OP-R Modalities Start: 12/21/20 08:54 Freq: Status: Active Protocol: Document 04/19/21 15:00 LRN (Rec: 04/19/21 16:21 LRN [id number]) Hot Pack/Cold Pack Treatment Cold Pack Location Neck: R Suboccipital, extra towels under head. Hot pack used with Cold pack Patient Position Hooklying Treatment Duration (minutes) 10 Patient Tolerance Good Comments Bolster under legs Hot Pack Location R upper shoulder Cold pack used with Hot pack Patient Position Hooklying Treatment Duration (minutes) 10 Patient Tolerance Good Comments Bolster under legs PT-OP-T Assessment and Plan Start: 12/21/20 08:54 Freq: Status: Active Protocol: Document 06/02/21 15:14 AW (Rec: 06/02/21 16:01 AW [id number]) Physical Therapy Assessment Goals shoulder ROM Impairment limited R shoulder AROM Plating Foreman Goal (LTG) pt will regain full active shoulder flexion and abduction compared to L with minimal discomfort 05/26/21 - Pt continues to lack 25-30 degrees AROM into flexion and abduction compared with left side LTG Duration 07/21/21 3 Impairment UE pain Short Term Goal (STG) 10/5 asssess next visit Pt will demo supine chin tuck x10sec to improve postural control STG Duration 2 weeks Skilled Nursing Goal (LTG) 12 in progress pt has neurosign to R hand only 1-2 times a day for very short period of time 05/26/21 - Pt continues to have neuro sign R wrist and hand - most pronounced with wrist flexion Pt will demo supine chin tuck x30sec to improve tolerance for work LTG Duration 07/21/21 2 Impairment pain with work Short Term Goal (STG) 02/08 asssess next visit Pt will improve quickdash score to <30% to demonstrate improved function at work STG Duration 2 weeks Plating Foreman Goal (LTG) Pt will improve quickdash to < 19% to return to I PLOF. 05/26/21 - 55% on QuickDash today LTG Duration 07/21/21 1 Impairment no HEP Short Term Goal (STG) 02/24 pt is I for HEP Pt will be I with basic HEP for stretching and strengthening STG Duration 2 weeks Plating Foreman Goal (LTG) 04/12 in progress pt still needs occasional cues for corrective exercises d/t his poor body awareness Pt will be I with advanced HEP for self mobilization, strengthening exercises to maximize functional return. LTG Duration 07/21/21 Assessment Summary Assessment Pt benefitted from desensitization work and continues at home. He reports reduction in tingling sensation in distal forearm and hand. He continues to report pain in right rhomboids and upper trap. Thoracic mobility remains extremely limited. Introduced diaphragmatic breathing today to target rib mobility. Physical Therapy Plan Frequency and Duration Frequency of Treatment 1-2x/ week Duration of Treatment 8 weeks Plan of Care Start Date 05/26/21 Plan of Care End Date 07/21/21 Therapeutic Interventions Therapeutic Interventions Home Exercise Program,Manual Therapy,Neuromuscular Re- education,Self-Care/Home Management,Soft Tissue Mobilization,Therapeutic Exercises Modalities Cold Pack/Ice Massage,Electric Stimulation,Hot Packs, Infrared Therapy,Traction- Mechanical,Ultrasound Next Visit Focus/Plan Next Note Type Treatment Note Next Visit Plan Continue with desensitization prn. Review all stretches and thoracic mobility. Consider prone GH extension and T's
--- NOTE | 2021-06-16 17:06 | PT.OTN ---
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 PT-OP-B Current Condition Start: 12/21/20 08:54 Freq: Status: Active Protocol: Document 12/21/20 08:54 OF (Rec: 12/21/20 09:21 OF [id number]) Current Condition History of Current Condition Onset Date 06/2020 Current Complaints mid back pain, R UE tingling History of Current Condition Pt states he fell leaving work in Jun. He has had shldr/mid back/ UE pain since. 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 Prior Treatments and Tests Pt states he had chirocpractic , PT, and massage therapy in the spring Treatment Goals Patient/Caregiver Goals get back to doing work and what I want without pain Prior Functional Status Baseline Function- ADL's Independent Baseline Function- Mobility Independent Current Functional Impairments (Reported) Functional Limitations- ADL's Difficulty with any prolonged activity Functional Limitations- Work/School pain while working at computer PT-OP-C Subjective Start: 12/21/20 08:54 Freq: Status: Active Protocol: Document 06/16/21 15:17 AW (Rec: 06/16/21 16:01 AW [id number]) OP-PT Subjective Patient Comments Patient Comments Pt is concerned about the diagnosis of record regarding this plan of care. Does not agree that degenerative process led to current condition. PT reassures pt that therapy notes include reference to precipitating fall. PT-OP-H Neuro Start: 12/21/20 08:54 Freq: Status: Active Protocol: Document 12/21/20 08:54 OF (Rec: 12/21/20 09:21 OF [id number]) Sensation Evaluation Gross Sensation Gross Sensation Left UE Impaired Sensation Description Hyperesthesia,Tingling,Burning Dermatome Impairments C8,T4 Comments Summary Comments pt reports numbness/tingling in R 4th/5th digit. Burning midscapular T spine, R >L PT-OP-K Range of Motion Start: 12/21/20 08:54 Freq: Status: Active Protocol: Document 12/21/20 08:54 OF (Rec: 12/21/20 09:21 OF [id number]) Cervical Spine Range of Motion Cervical Spine Active Testing Position Sitting Comments WNL excluding lateral flexion, limited to 10degrees bilat Shoulder Goniometric Range of Motion Shoulder Left Shoulder ROM WFL Yes Comments WNL Right Shoulder ROM WFL Yes Testing Position Sitting Comments WNL PT-OP-L Special Tests Start: 12/21/20 08:54 Freq: Status: Active Protocol: Document 12/21/20 08:54 OF (Rec: 12/21/20 09:21 OF [id number]) Special Tests Cervical Spine Special Tests Spurling's Test Test Results neg Comments no radicular symptoms R or L Neural Special Tests- Upper Body Ulnar Nerve Tension Test Results Neg PT-OP-M Strength Start: 12/21/20 08:54 Freq: Status: Active Protocol: Document 12/21/20 08:54 OF (Rec: 12/21/20 09:21 OF [id number]) Cervical Spine Strength Cervical Spine Manual Muscle Testing Flexion (C1-2) 5 Normal Extension 5 Normal Rotation Left 5 Normal Rotation Right 5 Normal Lateral Flexion Left (C3) 5 Normal Lateral Flexion Right (C3) 5 Normal PT-OP-Q Treatments Start: 12/21/20 08:54 Freq: Status: Active Protocol: Document 06/16/21 15:17 AW (Rec: 06/16/21 16:01 AW [id number]) Cardio Equipment Upper Body Ergometer (UBE) Duration (Minutes) 5 RPM 60 Seat Position 8 Other 30s f/b , no discomfort Therapeutic Exercises Supine Exercises 1/2 roller stretch Supine Exercise Name pec stretch Side bilateral Equipment Used 1/2 foam roller- Cued tolerant ROM stretch Reps/Minutes 1min Comments pec stretch on 1/2 foam roll; combined with desensitization work Prone Exercises prone press up Prone Exercise Name prone press up Comments with elbows at sides; limited excursion noted Sidelying Exercises open book Sidelying Exercise Name with UE abducted and extended better than elbow bent Side right Reps/Minutes x10 Comments improved ROM Sitting Exercises resisted scapular depression Sitting Exercise Name resisted scapular depression Side bilateral Resistance manual resistance by PT shoulder posterior capsule Sitting Exercise Name crossbody stretch Side right Reps/Minutes 30s x5 Comments for hEP UT stretch Sitting Exercise Name with towel to anchor shoulder Side right Reps/Minutes [id number] Comments v cues for tolerable ROM; lift ear toward ceiling Standing Exercises pec stretch Standing Exercise Name arms behind back Reps/Minutes 20sx 4 Comments for HEP, with cervical extension lat stretch Standing Exercise Name review Equipment Used door frame Reps/Minutes 20s hold x5 Comments for HEP Therapeutic Activity Therapeutic Activity diaphragmatic breathing Name diaphragmatic breathing Comments for rib mobility and pain management Manual Therapy Treatment Soft Tissue Mobilization trap & levator scap Body Location deep tissue Mobilization Type Myofascial Release,Sustained Pressure,Trigger Point Release Intensity/Depth Moderate Body Position Sidelying Comments hypertonicity at right upper trap bicep tendon Body Location long head Mobilization Type Sustained Pressure,Trigger Point Release Intensity/Depth Moderate Body Position Supine Comments significant toncity noted R scap mobs Comments joint mob into depression and adduction PT-OP-R Modalities Start: 12/21/20 08:54 Freq: Status: Active Protocol: Document 04/19/21 15:00 LRN (Rec: 04/19/21 16:21 LRN [id number]) Hot Pack/Cold Pack Treatment Cold Pack Location Neck: R Suboccipital, extra towels under head. Hot pack used with Cold pack Patient Position Hooklying Treatment Duration (minutes) 10 Patient Tolerance Good Comments Bolster under legs Hot Pack Location R upper shoulder Cold pack used with Hot pack Patient Position Hooklying Treatment Duration (minutes) 10 Patient Tolerance Good Comments Bolster under legs PT-OP-T Assessment and Plan Start: 12/21/20 08:54 Freq: Status: Active Protocol: Document 06/16/21 15:17 AW (Rec: 06/16/21 16:01 AW [id number]) Physical Therapy Assessment Goals shoulder ROM Impairment limited R shoulder AROM Culture Room Worker Goal (LTG) pt will regain full active shoulder flexion and abduction compared to L with minimal discomfort 05/26/21 - Pt continues to lack 25-30 degrees AROM into flexion and abduction compared with left side LTG Duration 07/21/21 3 Impairment UE pain Short Term Goal (STG) 02/08 asssess next visit Pt will demo supine chin tuck x10sec to improve postural control STG Duration 2 weeks Culture Room Worker Goal (LTG) 04/12 in progress pt has neurosign to R hand only 1-2 times a day for very short period of time 05/26/21 - Pt continues to have neuro sign R wrist and hand - most pronounced with wrist flexion Pt will demo supine chin tuck x30sec to improve tolerance for work LTG Duration 07/21/21 2 Impairment pain with work Short Term Goal (STG) 02/08 asssess next visit Pt will improve quickdash score to <30% to demonstrate improved function at work STG Duration 2 weeks [facility] Goal (LTG) Pt will improve quickdash to < 19% to return to I PLOF. 05/26/21 - 55% on QuickDash today LTG Duration 07/21/21 1 Impairment no HEP Short Term Goal (STG) 02/24 pt is I for HEP Pt will be I with basic HEP for stretching and strengthening STG Duration 2 weeks M[facility] Goal (LTG) 04/12 in progress pt still needs occasional cues for corrective exercises d/t his poor body awareness Pt will be I with advanced HEP for self mobilization, strengthening exercises to maximize functional return. LTG Duration 07/21/21 Assessment Summary Assessment Pt reports distal forearm tingling is greatly improved. He continues to exhibit increased tone in right upper trap which is minimally responsive to STM. Continued rib mobility work today with positive feedback. Physical Therapy Plan Frequency and Duration Frequency of Treatment 1-2x/ week Duration of Treatment 8 weeks Plan of Care Start Date 05/26/21 Plan of Care End Date 07/21/21 Therapeutic Interventions Therapeutic Interventions Home Exercise Program,Manual Therapy,Neuromuscular Re- education,Self-Care/Home Management,Soft Tissue Mobilization,Therapeutic Exercises Modalities Cold Pack/Ice Massage,Electric Stimulation,Hot Packs, Infrared Therapy,Traction- Mechanical,Ultrasound Next Visit Focus/Plan Next Note Type Treatment Note Next Visit Plan Review all stretches and thoracic mobility. Consider prone GH extension and T's
--- NOTE | 2021-06-27 11:53 | PT.OTN ---
Current Diagnoses Pain in right shoulder (06/27/21) Other cervical disc degeneration, unspecified cervical region (06/27/21) Physical Therapy Treatment Note PT-OP-A Visit Information Start: 12/21/20 08:54 Freq: Status: Active Protocol: Document 06/27/21 11:09 MA (Rec: 06/27/21 11:50 MA [id number]) Out-Patient Physical Therapy Visit Information Visit Information Visit Type Treatment Note Visit Start Time 11:05 Visit Stop Time 11:55 Total Visit Minutes 50 Visit Number 21 Number of SENIOR SALES COMPENSATION ANALYST Visits [address] scan indicates DDD is present at C5-6 and C6-7, and [id number] at C4-5. PT-OP-B Current Condition Start: 12/21/20 08:54 Freq: Status: Active Protocol: Document 12/21/20 08:54 OF (Rec: 12/21/20 09:21 OF [id number]) Current Condition History of Current Condition Onset Date 06/2020 Current Complaints mid back pain, R UE tingling History of Current Condition Pt states he fell leaving work in Jun. He has had shldr/mid back/ UE pain since. 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 Prior Treatments and Tests Pt states he had chirocpractic , PT, and massage therapy in the spring Treatment Goals Patient/Caregiver Goals get back to doing work and what I want without pain Prior Functional Status Baseline Function- ADL's Independent Baseline Function- Mobility Independent Current Functional Impairments (Reported) Functional Limitations- ADL's Difficulty with any prolonged activity Functional Limitations- Work/School pain while working at computer PT-OP-C Subjective Start: 12/21/20 08:54 Freq: Status: Active Protocol: Document 06/27/21 11:09 MA (Rec: 06/27/21 11:50 MA [id number]) OP-PT Subjective Patient Comments Patient Comments Pt feels pain around his R shoulder today and is still getting radiating pain down RUE PT-OP-H Neuro Start: 12/21/20 08:54 Freq: Status: Active Protocol: Document 12/21/20 08:54 OF (Rec: 12/21/20 09:21 OF [id number]) Sensation Evaluation Gross Sensation Gross Sensation Left UE Impaired Sensation Description Hyperesthesia,Tingling,Burning Dermatome Impairments C8,T4 Comments Summary Comments pt reports numbness/tingling in R 4th/5th digit. Burning midscapular T spine, R >L PT-OP-K Range of Motion Start: 12/21/20 08:54 Freq: Status: Active Protocol: Document 12/21/20 08:54 OF (Rec: 12/21/20 09:21 OF [id number]) Cervical Spine Range of Motion Cervical Spine Active Testing Position Sitting Comments WNL excluding lateral flexion, limited to 10degrees bilat Shoulder Goniometric Range of Motion Shoulder Left Shoulder ROM WFL Yes Comments WNL Right Shoulder ROM WFL Yes Testing Position Sitting Comments WNL PT-OP-L Special Tests Start: 12/21/20 08:54 Freq: Status: Active Protocol: Document 12/21/20 08:54 OF (Rec: 12/21/20 09:21 OF [id number]) Special Tests Cervical Spine Special Tests Spurling's Test Test Results neg Comments no radicular symptoms R or L Neural Special Tests- Upper Body Ulnar Nerve Tension Test Results Neg PT-OP-M Strength Start: 12/21/20 08:54 Freq: Status: Active Protocol: Document 12/21/20 08:54 OF (Rec: 12/21/20 09:21 OF [id number]) Cervical Spine Strength Cervical Spine Manual Muscle Testing Flexion (C1-2) 5 Normal Extension 5 Normal Rotation Left 5 Normal Rotation Right 5 Normal Lateral Flexion Left (C3) 5 Normal Lateral Flexion Right (C3) 5 Normal PT-OP-Q Treatments Start: 12/21/20 08:54 Freq: Status: Active Protocol: Document 06/27/21 11:09 MA (Rec: 06/27/21 11:50 MA [id number]) Cardio Equipment Upper Body Ergometer (UBE) Duration (Minutes) 6 RPM 60 Seat Position 8 Other 1' f/b , no dsicomfort Therapeutic Exercises Sitting Exercises shoulder posterior capsule Sitting Exercise Name crossbody stretch Side right Reps/Minutes 30s x5 Comments for HEP UT stretch Sitting Exercise Name with towel to anchor shoulder Side right Reps/Minutes [id number] Comments v cues for tolerable ROM; lift ear toward ceiling Standing Exercises row Standing Exercise Name row Side bilateral Resistance TB2 Comments HEP lat stretch Standing Exercise Name review Equipment Used door frame Reps/Minutes 20s hold x5 Comments for HEP Manual Therapy Treatment Soft Tissue Mobilization trap & levator scap Body Location deep tissue, rhomboids today as well as UT/mid trap and levator Mobilization Type Myofascial Release,Sustained Pressure,Trigger Point Release Intensity/Depth Moderate Body Position Prone Comments hypertonicity at right upper trap PT-OP-R Modalities Start: 12/21/20 08:54 Freq: Status: Active Protocol: Document 06/27/21 11:09 MA (Rec: 06/27/21 11:50 MA [id number]) Electric Stimulation Electric Stimulation IFC Body Location R UT Duration (Minutes) 12 Intensity 11 Target/Sweep Sweep High/Low Low Patient Position Hooklying Combined With Heat/Cold Hot Pack PT-OP-T Assessment and Plan Start: 12/21/20 08:54 Freq: Status: Active Protocol: Document 06/27/21 11:09 MA (Rec: 06/27/21 11:50 MA [id number]) Physical Therapy Assessment Goals shoulder ROM Impairment limited R shoulder AROM Group Home Goal (LTG) pt will regain full active shoulder flexion and abduction compared to L with minimal discomfort 05/26/21 - Pt continues to lack 25-30 degrees AROM into flexion and abduction compared with left side LTG Duration 07/21/21 3 Impairment UE pain Short Term Goal (STG) 02/08 asssess next visit Pt will demo supine chin tuck x10sec to improve postural control STG Duration 2 weeks Toddler Caregiver Goal (LTG) 04/12 in progress pt has neurosign to R hand only 1-2 times a day for very short period of time 05/26/21 - Pt continues to have neuro sign R wrist and hand - most pronounced with wrist flexion Pt will demo supine chin tuck x30sec to improve tolerance for work LTG Duration 07/21/21 2 Impairment pain with work Short Term Goal (STG) 02/08 asssess next visit Pt will improve quickdash score to <30% to demonstrate improved function at work STG Duration 2 weeks Group Home Goal (LTG) Pt will improve quickdash to < 19% to return to I PLOF. 05/26/21 - 55% on QuickDash today LTG Duration 07/21/21 1 Impairment no HEP Short Term Goal (STG) 02/24 pt is I for HEP Pt will be I with basic HEP for stretching and strengthening STG Duration 2 weeks Group Home Goal (LTG) 04/12 in progress pt still needs occasional cues for corrective exercises d/t his poor body awareness Pt will be I with advanced HEP for self mobilization, strengthening exercises to maximize functional return. LTG Duration 07/21/21 Assessment Summary Assessment Pt gets some relief after STM to UT, mid trap, and rhomboids . He is tender to palpation over C6/C7 and states that is where he gets most of his discomfort now. Reviewed recent HEP stretches with pt showing good form. Ended with IFC to R UT to reduce mm tension to decrease pt's pain. Physical Therapy Plan Frequency and Duration Frequency of Treatment 1-2x/ week Duration of Treatment 8 weeks Plan of Care Start Date 05/26/21 Plan of Care End Date 07/21/21 Therapeutic Interventions Therapeutic Interventions Home Exercise Program,Manual Therapy,Neuromuscular Re- education,Self-Care/Home Management,Soft Tissue Mobilization,Therapeutic Exercises Modalities Cold Pack/Ice Massage,Electric Stimulation,Hot Packs, Infrared Therapy,Traction- Mechanical,Ultrasound Next Visit Focus/Plan Next Note Type Treatment Note Next Visit Plan Assess how IFC felt. Review all stretches and thoracic mobility. Consider prone GH extension and T's. Try self- STM to UT/rhomboids
--- NOTE | 2021-07-08 17:06 | PT.OTN ---
Current Diagnoses Pain in right shoulder (07/08/21) Other cervical disc degeneration, unspecified cervical region (07/08/21) Physical Therapy Treatment Note PT-OP-A Visit Information Start: 12/21/20 08:54 Freq: Status: Active Protocol: Document 07/08/21 15:19 MA (Rec: 07/08/21 16:04 MA [id number]) Out-Patient Physical Therapy Visit Information Visit Information Visit Type Treatment Note Visit Start Time 15:15 Visit Stop Time 16:10 Total Visit Minutes 55 Visit Number 22 Number of LOCKSTITCHER Visits [address] scan indicates DDD is present at C5-6 and C6-7, and [id number] at C4-5. PT-OP-B Current Condition Start: 12/21/20 08:54 Freq: Status: Active Protocol: Document 12/21/20 08:54 OF (Rec: 12/21/20 09:21 OF [id number]) Current Condition History of Current Condition Onset Date 06/2020 Current Complaints mid back pain, R UE tingling History of Current Condition Pt states he fell leaving work in Jun. He has had shldr/mid back/ UE pain since. 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 Prior Treatments and Tests Pt states he had chirocpractic , PT, and massage therapy in the spring Treatment Goals Patient/Caregiver Goals get back to doing work and what I want without pain Prior Functional Status Baseline Function- ADL's Independent Baseline Function- Mobility Independent Current Functional Impairments (Reported) Functional Limitations- ADL's Difficulty with any prolonged activity Functional Limitations- Work/School pain while working at computer PT-OP-C Subjective Start: 12/21/20 08:54 Freq: Status: Active Protocol: Document 07/08/21 15:19 MA (Rec: 07/08/21 16:04 MA [id number]) OP-PT Subjective Patient Comments Patient Comments Pt had a RICKETTS for two days after last session and some neck soreness but felt the IFC helped decrease his pain for several days after. PT-OP-H Neuro Start: 12/21/20 08:54 Freq: Status: Active Protocol: Document 12/21/20 08:54 OF (Rec: 12/21/20 09:21 OF [id number]) Sensation Evaluation Gross Sensation Gross Sensation Left UE Impaired Sensation Description Hyperesthesia,Tingling,Burning Dermatome Impairments C8,T4 Comments Summary Comments pt reports numbness/tingling in R 4th/5th digit. Burning midscapular T spine, R >L PT-OP-K Range of Motion Start: 12/21/20 08:54 Freq: Status: Active Protocol: Document 12/21/20 08:54 OF (Rec: 12/21/20 09:21 OF [id number]) Cervical Spine Range of Motion Cervical Spine Active Testing Position Sitting Comments WNL excluding lateral flexion, limited to 10degrees bilat Shoulder Goniometric Range of Motion Shoulder Left Shoulder ROM WFL Yes Comments WNL Right Shoulder ROM WFL Yes Testing Position Sitting Comments WNL PT-OP-L Special Tests Start: 12/21/20 08:54 Freq: Status: Active Protocol: Document 12/21/20 08:54 OF (Rec: 12/21/20 09:21 OF [id number]) Special Tests Cervical Spine Special Tests Spurling's Test Test Results neg Comments no radicular symptoms R or L Neural Special Tests- Upper Body Ulnar Nerve Tension Test Results Neg PT-OP-M Strength Start: 12/21/20 08:54 Freq: Status: Active Protocol: Document 12/21/20 08:54 OF (Rec: 12/21/20 09:21 OF [id number]) Cervical Spine Strength Cervical Spine Manual Muscle Testing Flexion (C1-2) 5 Normal Extension 5 Normal Rotation Left 5 Normal Rotation Right 5 Normal Lateral Flexion Left (C3) 5 Normal Lateral Flexion Right (C3) 5 Normal PT-OP-Q Treatments Start: 12/21/20 08:54 Freq: Status: Active Protocol: Document 07/08/21 15:19 MA (Rec: 07/08/21 16:04 MA [id number]) Cardio Equipment Upper Body Ergometer (UBE) Duration (Minutes) 6 RPM 60 Seat Position 8 Other 1' f/b , no dsicomfort Therapeutic Exercises Prone Exercises Scap Retraction Prone Exercise Name rows Side right Resistance gravity Horzi ABD Side right Resistance gravity Extension Prone Exercise Name shd extension Side right Equipment Used gravity Manual Therapy Treatment Soft Tissue Mobilization Pecs Body Location R pec major Intensity/Depth Moderate Body Position Hooklying Comments hands behind head lats Mobilization Type Myofascial Release Intensity/Depth Moderate Body Position Sidelying trap & levator scap Body Location deep tissue, rhomboids today as well as UT/mid trap and levator Mobilization Type Myofascial Release,Sustained Pressure,Trigger Point Release Intensity/Depth Moderate Body Position Prone Comments hypertonicity at right upper trap R RTC Body Location infraspinatus, teres minor Mobilization Type Sustained Pressure,Trigger Point Release Intensity/Depth Moderate Body Position Sidelying Comments significant toncity noted PT-OP-R Modalities Start: 12/21/20 08:54 Freq: Status: Active Protocol: Document 07/08/21 15:19 MA (Rec: 07/08/21 16:04 MA [id number]) Electric Stimulation Electric Stimulation IFC Body Location R scapula Duration (Minutes) 10 Intensity 11 Target/Sweep Sweep High/Low Low Patient Position Hooklying Combined With Heat/Cold Hot Pack PT-OP-T Assessment and Plan Start: 12/21/20 08:54 Freq: Status: Active Protocol: Document 07/08/21 15:19 MA (Rec: 07/08/21 16:04 MA [id number]) Physical Therapy Assessment Goals shoulder ROM Impairment limited R shoulder AROM [facility] Goal (LTG) pt will regain full active shoulder flexion and abduction compared to L with minimal discomfort 05/26/21 - Pt continues to lack 25-30 degrees AROM into flexion and abduction compared with left side LTG Duration 07/21/21 3 Impairment UE pain Short Term Goal (STG) 10 asssess next visit Pt will demo supine chin tuck x10sec to improve postural control STG Duration 2 weeks [employer] Tech Goal (LTG) 04/12 in progress pt has neurosign to R hand only 1-2 times a day for very short period of time 05/26/21 - Pt continues to have neuro sign R wrist and hand - most pronounced with wrist flexion Pt will demo supine chin tuck x30sec to improve tolerance for work LTG Duration 07/21/21 2 Impairment pain with work Short Term Goal (STG) 10 asssess next visit Pt will improve quickdash score to <30% to demonstrate improved function at work STG Duration 2 weeks [employer] Tech Goal (LTG) Pt will improve quickdash to < 19% to return to I PLOF. 05/26/21 - 55% on QuickDash today LTG Duration 07/21/21 1 Impairment no HEP Short Term Goal (STG) 02/24 pt is I for HEP Pt will be I with basic HEP for stretching and strengthening STG Duration 2 weeks Shelter Goal (LTG) 04/12 in progress pt still needs occasional cues for corrective exercises d/t his poor body awareness Pt will be I with advanced HEP for self mobilization, strengthening exercises to maximize functional return. LTG Duration 07/21/21 Assessment Summary Assessment Tried prone exercises this session. Pt has no pain during shd extension to neutral but has minor pain past neutral. Worked on extending only to neutral against gravity with arm hanging over table. Tried prone scap retraction (row), and horizontal abduction with pt having no pain but showing signs of fatigue with mm shaking. 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 He request trying IFC again on a lower setting. Increased IFC area due to pt c/o RICKETTS and minor neck soreness after IFC when on R [place]. Physical Therapy Plan Frequency and Duration Frequency of Treatment 1-2x/ week Duration of Treatment 8 weeks Plan of Care Start Date 05/26/21 Plan of Care End Date 07/21/21 Therapeutic Interventions Therapeutic Interventions Home Exercise Program,Manual Therapy,Neuromuscular Re- education,Self-Care/Home Management,Soft Tissue Mobilization,Therapeutic Exercises Modalities Cold Pack/Ice Massage,Electric Stimulation,Hot Packs, Infrared Therapy,Traction- Mechanical,Ultrasound Next Visit Focus/Plan Next Note Type Treatment Note Next Visit Plan Try prone over t-ball-GH ext & t's. Review all stretches and thoracic mobility. Discuss purchasing TENS unit for home estim.
--- NOTE | 2021-07-15 17:18 | PT.OTN ---
Current Diagnoses Pain in right shoulder (07/15/21) Other cervical disc degeneration, unspecified cervical region (07/15/21) Physical Therapy Treatment Note PT-OP-A Visit Information Start: 12/21/20 08:54 Freq: Status: Active Protocol: Document 07/15/21 14:28 MA (Rec: 07/15/21 15:23 MA [id number]) Out-Patient Physical Therapy Visit Information Visit Information Visit Type Treatment Note Visit Start Time 14:30 Visit Stop Time 15:25 Total Visit Minutes 55 Visit Number 23 Number of FOOD PRESERVATION SCIENTIST Visits [address] scan indicates DDD is present at C5-6 and C6-7, and [id number]-bg-[id number] at C4-5. PT-OP-B Current Condition Start: 12/21/20 08:54 Freq: Status: Active Protocol: Document 12/21/20 08:54 OF (Rec: 12/21/20 09:21 OF [id number]) Current Condition History of Current Condition Onset Date 06/2020 Current Complaints mid back pain, R UE tingling History of Current Condition Pt states he fell leaving work in Jun. He has had shldr/mid back/ UE pain since. 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 Prior Treatments and Tests Pt states he had chirocpractic , PT, and massage therapy in the spring Treatment Goals Patient/Caregiver Goals get back to doing work and what I want without pain Prior Functional Status Baseline Function- ADL's Independent Baseline Function- Mobility Independent Current Functional Impairments (Reported) Functional Limitations- ADL's Difficulty with any prolonged activity Functional Limitations- Work/School pain while working at computer PT-OP-C Subjective Start: 12/21/20 08:54 Freq: Status: Active Protocol: Document 07/15/21 14:28 MA (Rec: 07/15/21 15:23 MA [id number]) OP-PT Subjective Patient Comments Patient Comments Pt states that he is having less numbness down his arm and feels that he is starting to feel some improvment in pain. Patient Reported Progress Improving PT-OP-H Neuro Start: 12/21/20 08:54 Freq: Status: Active Protocol: Document 12/21/20 08:54 OF (Rec: 12/21/20 09:21 OF [id number]) Sensation Evaluation Gross Sensation Gross Sensation Left UE Impaired Sensation Description Hyperesthesia,Tingling,Burning Dermatome Impairments C8,T4 Comments Summary Comments pt reports numbness/tingling in R 4th/5th digit. Burning midscapular T spine, R >L PT-OP-K Range of Motion Start: 12/21/20 08:54 Freq: Status: Active Protocol: Document 12/21/20 08:54 OF (Rec: 12/21/20 09:21 OF [id number]) Cervical Spine Range of Motion Cervical Spine Active Testing Position Sitting Comments WNL excluding lateral flexion, limited to 10degrees bilat Shoulder Goniometric Range of Motion Shoulder Left Shoulder ROM WFL Yes Comments WNL Right Shoulder ROM WFL Yes Testing Position Sitting Comments WNL PT-OP-L Special Tests Start: 12/21/20 08:54 Freq: Status: Active Protocol: Document 12/21/20 08:54 OF (Rec: 12/21/20 09:21 OF [id number]) Special Tests Cervical Spine Special Tests Spurling's Test Test Results neg Comments no radicular symptoms R or L Neural Special Tests- Upper Body Ulnar Nerve Tension Test Results Neg PT-OP-M Strength Start: 12/21/20 08:54 Freq: Status: Active Protocol: Document 12/21/20 08:54 OF (Rec: 12/21/20 09:21 OF [id number]) Cervical Spine Strength Cervical Spine Manual Muscle Testing Flexion (C1-2) 5 Normal Extension 5 Normal Rotation Left 5 Normal Rotation Right 5 Normal Lateral Flexion Left (C3) 5 Normal Lateral Flexion Right (C3) 5 Normal PT-OP-Q Treatments Start: 12/21/20 08:54 Freq: Status: Active Protocol: Document 07/15/21 14:28 MA (Rec: 07/15/21 15:23 MA [id number]) Cardio Equipment Upper Body Ergometer (UBE) Duration (Minutes) 6 RPM 60 Seat Position 8 Other 1' f/b , no dsicomfort Gym Equipment Therapeutic Ball Prone Exercise Details Shd ext, hoiz abd, flexion Ball Size/Color 65 cm green ball Body Position Prone Reps/Duration x10 ea Comments 2# weights for ext, no weights for hori abd & flexion (minor discomfort during flexion) Therapeutic Exercises Supine Exercises AAROM Supine Exercise Name flex to 90, ER, ABD Equipment Used wand Reps/Minutes 10x 5SH Comments added to HEP Sidelying Exercises Sleeper Stretch Side right Reps/Minutes 2x30 Comments added to HEP Sitting Exercises Wrist flexor stretch Side right Reps/Minutes x30 Comments added to HEP Manual Therapy Treatment Soft Tissue Mobilization trap & levator scap Body Location deep tissue, rhomboids today as well as UT/mid trap and levator Mobilization Type Myofascial Release,Sustained Pressure,Trigger Point Release Intensity/Depth Moderate Body Position Prone Comments hypertonicity at right upper trap R RTC Body Location infraspinatus, teres minor Mobilization Type Sustained Pressure,Trigger Point Release Intensity/Depth Moderate Body Position Sidelying Comments significant toncity noted Self-Care/Home Management Treatment Education Patient Education Home Exercise Program Other Education Added to HEP: sleeper stretch (IR), AAROM flexion, ER & ABD, and wrist flexor/ext stretch. Provided pt with handout on TENS units for e-stim at home. PT-OP-R Modalities Start: 12/21/20 08:54 Freq: Status: Active Protocol: Document 07/15/21 14:28 MA (Rec: 07/15/21 15:23 MA [id number]) Electric Stimulation Electric Stimulation IFC Body Location R scapula Duration (Minutes) 10 Intensity 12 Target/Sweep Sweep High/Low Low Patient Position Hooklying Combined With Heat/Cold Hot Pack PT-OP-T Assessment and Plan Start: 12/21/20 08:54 Freq: Status: Active Protocol: Document 07/15/21 14:28 MA (Rec: 07/15/21 15:23 MA [id number]) Physical Therapy Assessment Goals shoulder ROM Impairment limited R shoulder AROM [facility] Goal (LTG) pt will regain full active shoulder flexion and abduction compared to L with minimal discomfort 05/26/21 - Pt continues to lack 25-30 degrees AROM into flexion and abduction compared with left side LTG Duration 07/21/21 3 Impairment UE pain Short Term Goal (STG) 10 asssess next visit Pt will demo supine chin tuck x10sec to improve postural control STG Duration 2 weeks [facility] Goal (LTG) 12/ in progress pt has neurosign to R hand only 1-2 times a day for very short period of time 05/26/21 - Pt continues to have neuro sign R wrist and hand - most pronounced with wrist flexion Pt will demo supine chin tuck x30sec to improve tolerance for work LTG Duration 07/21/21 2 Impairment pain with work Short Term Goal (STG) 02/08 asssess next visit Pt will improve quickdash score to <30% to demonstrate improved function at work STG Duration 2 weeks [facility] Goal (LTG) Pt will improve quickdash to < 19% to return to I PLOF. 05/26/21 - 55% on QuickDash today LTG Duration 07/21/21 1 Impairment no HEP Short Term Goal (STG) 02/24 pt is I for HEP Pt will be I with basic HEP for stretching and strengthening STG Duration 2 weeks Muffle Worker Goal (LTG) 04/12 in progress pt still needs occasional cues for corrective exercises d/t his poor body awareness Pt will be I with advanced HEP for self mobilization, strengthening exercises to maximize functional return. LTG Duration 07/21/21 Assessment Summary Assessment Pt was able to complete prone exercises over theraball today but is unable to use any weight for horiz abd or flexion. During supine AAROM exercises, pt has difficulty with abduction due to wrist flexor tightness and cannot fully extend elbow. Added in supine AAROM flexion, abd, and ER to HEP along with sleeper stretch (IR) and wrist flexor/ extensor stretches. Provided pt with information on E-stim TENS units for home. Physical Therapy Plan Frequency and Duration Frequency of Treatment 1-2x/ week Duration of Treatment 8 weeks Plan of Care Start Date 05/26/21 Plan of Care End Date 07/21/21 Therapeutic Interventions Therapeutic Interventions Home Exercise Program,Manual Therapy,Neuromuscular Re- education,Self-Care/Home Management,Soft Tissue Mobilization,Therapeutic Exercises Modalities Cold Pack/Ice Massage,Electric Stimulation,Hot Packs, Infrared Therapy,Traction- Mechanical,Ultrasound Next Visit Focus/Plan Next Note Type Treatment Note Next Visit Plan Warm up with AAROM HEP exercises and continue with prone exercises over T-ball. Pt may bring in TENS unit if he purchases it for instructions for home use.
--- NOTE | 2021-07-21 17:15 | PT.OTN ---
Current Diagnoses Pain in right shoulder (07/21/21) Other cervical disc degeneration, unspecified cervical region (07/21/21) Physical Therapy Treatment Note PT-OP-A Visit Information Start: 12/21/20 08:54 Freq: Status: Active Protocol: Document 07/21/21 15:20 AW (Rec: 07/21/21 16:04 AW [id number]) Out-Patient Physical Therapy Visit Information Visit Information Visit Type Treatment Note Visit Start Time 15:15 Visit Stop Time 16:10 Total Visit Minutes [address] scan indicates DDD is present at C5-6 and C6-7, and [id number] at C4-5. PT-OP-B Current Condition Start: 12/21/20 08:54 Freq: Status: Active Protocol: Document 12/21/20 08:54 OF (Rec: 12/21/20 09:21 OF [id number]) Current Condition History of Current Condition Onset Date 06/2020 Current Complaints mid back pain, R UE tingling History of Current Condition Pt states he fell leaving work in Jun. He has had shldr/mid back/ UE pain since. 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 Prior Treatments and Tests Pt states he had chirocpractic , PT, and massage therapy in the spring Treatment Goals Patient/Caregiver Goals get back to doing work and what I want without pain Prior Functional Status Baseline Function- ADL's Independent Baseline Function- Mobility Independent Current Functional Impairments (Reported) Functional Limitations- ADL's Difficulty with any prolonged activity Functional Limitations- Work/School pain while working at computer PT-OP-C Subjective Start: 12/21/20 08:54 Freq: Status: Active Protocol: Document 07/21/21 15:20 AW (Rec: 07/21/21 16:04 AW [id number]) OP-PT Subjective Patient Comments Patient Comments I feel like I have more mobility in my neck and shoulders. Less pain and less tightness. Patient Reported Progress Improving PT-OP-H Neuro Start: 12/21/20 08:54 Freq: Status: Active Protocol: Document 12/21/20 08:54 OF (Rec: 12/21/20 09:21 OF [id number]) Sensation Evaluation Gross Sensation Gross Sensation Left UE Impaired Sensation Description Hyperesthesia,Tingling,Burning Dermatome Impairments C8,T4 Comments Summary Comments pt reports numbness/tingling in R 4th/5th digit. Burning midscapular T spine, R >L PT-OP-K Range of Motion Start: 12/21/20 08:54 Freq: Status: Active Protocol: Document 07/21/21 15:20 AW (Rec: 07/21/21 17:04 AW [id number]) Shoulder Goniometric Range of Motion Shoulder Left Testing Position Sitting Comments WNL Right Testing Position Sitting Flexion 160 Extension 150 External Rotation at 0 degrees Abduction 50 Internal Rotation Behind Back (text) hip pocket PT-OP-L Special Tests Start: 12/21/20 08:54 Freq: Status: Active Protocol: Document 12/21/20 08:54 OF (Rec: 12/21/20 09:21 OF [id number]) Special Tests Cervical Spine Special Tests Spurling's Test Test Results neg Comments no radicular symptoms R or L Neural Special Tests- Upper Body Ulnar Nerve Tension Test Results Neg PT-OP-M Strength Start: 12/21/20 08:54 Freq: Status: Active Protocol: Document 12/21/20 08:54 OF (Rec: 12/21/20 09:21 OF [id number]) Cervical Spine Strength Cervical Spine Manual Muscle Testing Flexion (C1-2) 5 Normal Extension 5 Normal Rotation Left 5 Normal Rotation Right 5 Normal Lateral Flexion Left (C3) 5 Normal Lateral Flexion Right (C3) 5 Normal PT-OP-Q Treatments Start: 12/21/20 08:54 Freq: Status: Active Protocol: Document 07/21/21 15:20 AW (Rec: 07/21/21 16:04 AW [id number]) Cardio Equipment Upper Body Ergometer (UBE) Duration (Minutes) 6 RPM 60 Seat Position 8 Height 2 Other 1' f/b , no dsicomfort Therapeutic Exercises Supine Exercises AAROM Supine Exercise Name flex to 90, ER, ABD Equipment Used wand Reps/Minutes 10x 5SH Comments added to HEP Sidelying Exercises Sleeper Stretch Side right Reps/Minutes 2x30 Comments cued pain free range Sitting Exercises resisted scapular depression Sitting Exercise Name resisted scapular depression Side bilateral Resistance manual resistance by PT Manual Therapy Treatment Soft Tissue Mobilization trap & levator scap Body Location deep tissue, rhomboids today as well as UT/mid trap and levator Mobilization Type Myofascial Release,Sustained Pressure,Trigger Point Release Intensity/Depth Moderate Body Position Prone Comments trigger points R UT and rhomboids R RTC Body Location infraspinatus, teres minor Mobilization Type Sustained Pressure,Trigger Point Release Intensity/Depth Moderate Body Position Sidelying Comments significant toncity noted PT-OP-R Modalities Start: 12/21/20 08:54 Freq: Status: Active Protocol: Document 07/21/21 15:20 AW (Rec: 07/21/21 16:04 AW [id number]) Electric Stimulation Electric Stimulation IFC Body Location R scapula Duration (Minutes) 10 Intensity 12 Target/Sweep Sweep High/Low Low Patient Position Hooklying Combined With Heat/Cold Hot Pack PT-OP-T Assessment and Plan Start: 12/21/20 08:54 Freq: Status: Active Protocol: Document 07/21/21 15:20 AW (Rec: 07/21/21 16:04 AW [id number]) Physical Therapy Assessment Goals shoulder ROM Impairment limited R shoulder AROM Half-Way Goal (LTG) pt will regain full active shoulder flexion and abduction compared to L with minimal discomfort 05/26/21 - Pt continues to lack 25-30 degrees AROM into flexion and abduction compared with left side 07/21/21 - Flexion and abduction match left side. ER lacks 10 degrees compared to left. IR significantly reduced and painful compared to left. LTG Duration 09/02/21 3 Impairment UE pain Short Term Goal (STG) 10/5 asssess next visit Pt will demo supine chin tuck x10sec to improve postural control STG Duration 2 weeks Desktop Technician Goal (LTG) 04/12 in progress pt has neurosign to R hand only 1-2 times a day for very short period of time 05/26/21 - Pt continues to have neuro sign R wrist and hand - most pronounced with wrist flexion Pt will demo supine chin tuck x30sec to improve tolerance for work 07/21/21 - less frequent and less intense neurosign right hand LTG Duration 09/02/21 2 Impairment pain with work Short Term Goal (STG) 10/5 asssess next visit Pt will improve quickdash score to <30% to demonstrate improved function at work STG Duration 2 weeks Half-Way Goal (LTG) Pt will improve quickdash to < 19% to return to I PLOF. 1/20/22 - 55% on QuickDash today 07/21/21 No change LTG Duration 09/02/21 1 Impairment no HEP Short Term Goal (STG) 02/24 pt is I for HEP Pt will be I with basic HEP for stretching and strengthening STG Duration 2 weeks Desktop Technician Goal (LTG) 04/12 in progress pt still needs occasional cues for corrective exercises d/t his poor body awareness Pt will be I with advanced HEP for self mobilization, strengthening exercises to maximize functional return. LTG Duration 09/02/21 Progress Towards Goals Progress Towards Goals Progressing Toward Goals,Slow Progress - Other Progress Comments ROM has progressed in flexion and abduction. Pt still lacking rotation ROM compared with left side. Symptoms are less irritable overall. Assessment Summary Assessment Pt tolerated manual therapy and HEP review today. He has made good progress with pain free ROM in flexion and abduction but still lacks rotation and continues with hypertonicity upper traps and rhomboids Physical Therapy Plan Frequency and Duration Frequency of Treatment 1-2x/ week Duration of Treatment 6 weeks Plan of Care Start Date 07/21/21 Plan of Care End Date 09/02/21 Therapeutic Interventions Therapeutic Interventions Home Exercise Program,Manual Therapy,Neuromuscular Re- education,Self-Care/Home Management,Soft Tissue Mobilization,Therapeutic Exercises Modalities Cold Pack/Ice Massage,Electric Stimulation,Hot Packs, Infrared Therapy,Traction- Mechanical,Ultrasound Next Visit Focus/Plan Next Note Type Treatment Note Next Visit Plan Warm up with AAROM HEP exercises and continue with prone exercises over T-ball. Pt may bring in TENS unit if he purchases it for instructions for home use.
--- NOTE | 2021-07-21 17:15 | PT.OPPOC ---
Physical, Occupational & Speech Therapy At [facility] Current Diagnoses Pain in right shoulder (07/21/21) Other cervical disc degeneration, unspecified cervical region (07/21/21) Visit Care Team Role Provider Type DENTON Carrero Attending Provider Advanced Forensic Science Examiner Primary Care Provider Referring Provider Specialty: Medical Address: [address] [place] [address], [facility] Email: [email or web address] Plan Of Care PT-OP-T Assessment and Plan Start: 12/21/20 08:54 Freq: Status: Active Protocol: Document 07/21/21 15:20 AW (Rec: 07/21/21 16:04 AW [id number]) Physical Therapy Assessment Goals shoulder ROM Impairment limited R shoulder AROM Gold Cutter Goal (LTG) pt will regain full active shoulder flexion and abduction compared to L with minimal discomfort 05/26/21 - Pt continues to lack 25-30 degrees AROM into flexion and abduction compared with left side 07/21/21 - Flexion and abduction match left side. ER lacks 10 degrees compared to left. IR significantly reduced and painful compared to left. LTG Duration 09/02/21 3 Impairment UE pain Short Term Goal (STG) 10/5 asssess next visit Pt will demo supine chin tuck x10sec to improve postural control STG Duration 2 weeks Gold Cutter Goal (LTG) 04/12 in progress pt has neurosign to R hand only 1-2 times a day for very short period of time 05/26/21 - Pt continues to have neuro sign R wrist and hand - most pronounced with wrist flexion Pt will demo supine chin tuck x30sec to improve tolerance for work 07/21/21 - less frequent and less intense neurosign right hand LTG Duration 09/02/21 2 Impairment pain with work Short Term Goal (STG) 10/5 asssess next visit Pt will improve quickdash score to <30% to demonstrate improved function at work STG Duration 2 weeks Gold Cutter Goal (LTG) Pt will improve quickdash to < 19% to return to I PLOF. 05/26/21 - 55% on QuickDash today 07/21/21 No change LTG Duration 09/02/21 1 Impairment no HEP Short Term Goal (STG) 02/24 pt is I for HEP Pt will be I with basic HEP for stretching and strengthening STG Duration 2 weeks Gold Cutter Goal (LTG) 04/12 in progress pt still needs occasional cues for corrective exercises d/t his poor body awareness Pt will be I with advanced HEP for self mobilization, strengthening exercises to maximize functional return. LTG Duration 09/02/21 Progress Towards Goals Progress Towards Goals Progressing Toward Goals,Slow Progress - Other Progress Comments ROM has progressed in flexion and abduction. Pt still lacking rotation ROM compared with left side. Symptoms are less irritable overall. Assessment Summary Assessment Pt tolerated manual therapy and HEP review today. He has made good progress with pain free ROM in flexion and abduction but still lacks rotation and continues with hypertonicity upper traps and rhomboids Physical Therapy Plan Frequency and Duration Frequency of Treatment 1-2x/ week Duration of Treatment 6 weeks Plan of Care Start Date 07/21/21 Plan of Care End Date 09/02/21 Therapeutic Interventions Therapeutic Interventions Home Exercise Program,Manual Therapy,Neuromuscular Re- education,Self-Care/Home Management,Soft Tissue Mobilization,Therapeutic Exercises Modalities Cold Pack/Ice Massage,Electric Stimulation,Hot Packs, Infrared Therapy,Traction- Mechanical,Ultrasound Next Visit Focus/Plan Next Note Type Treatment Note Next Visit Plan Warm up with AAROM HEP exercises and continue with prone exercises over T-ball. Pt may bring in TENS unit if he purchases it for instructions for home use. Plan of Care Dates Plan of Care Start Date 07/21/21 Plan of Care End Date 09/02/21 Electronically Signed by: Viktoria Hennessy, PT 07/21/21 [id number] Please Sign and Return: I have reviewed this Plan of Care and certify that the skilled therapy services above are required to meet the patient?s needs. Physician Signature Date Printed Name and Credentials Clinical Instructor Signature Printed Name and Credentials
--- NOTE | 2021-07-29 11:27 | PT.OTN ---
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 PT-OP-B Current Condition Start: 12/21/20 08:54 Freq: Status: Active Protocol: Document 12/21/20 08:54 OF (Rec: 12/21/20 09:21 OF [id number]) Current Condition History of Current Condition Onset Date 06/2020 Current Complaints mid back pain, R UE tingling History of Current Condition Pt states he fell leaving work in Jun. He has had shldr/mid back/ UE pain since. 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 Prior Treatments and Tests Pt states he had chirocpractic , PT, and massage therapy in the spring Treatment Goals Patient/Caregiver Goals get back to doing work and what I want without pain Prior Functional Status Baseline Function- ADL's Independent Baseline Function- Mobility Independent Current Functional Impairments (Reported) Functional Limitations- ADL's Difficulty with any prolonged activity Functional Limitations- Work/School pain while working at computer PT-OP-C Subjective Start: 12/21/20 08:54 Freq: Status: Active Protocol: Document 07/29/21 09:30 MA (Rec: 07/29/21 10:27 MA [id number]) OP-PT Subjective Patient Comments Patient Comments I feel like I am getting a little better. I did not buy the machine yet because I don' t know how to use it PT-OP-H Neuro Start: 12/21/20 08:54 Freq: Status: Active Protocol: Document 12/21/20 08:54 OF (Rec: 12/21/20 09:21 OF [id number]) Sensation Evaluation Gross Sensation Gross Sensation Left UE Impaired Sensation Description Hyperesthesia,Tingling,Burning Dermatome Impairments C8,T4 Comments Summary Comments pt reports numbness/tingling in R 4th/5th digit. Burning midscapular T spine, R >L PT-OP-K Range of Motion Start: 12/21/20 08:54 Freq: Status: Active Protocol: Document 07/21/21 15:20 AW (Rec: 07/21/21 17:04 AW [id number]) Shoulder Goniometric Range of Motion Shoulder Left Testing Position Sitting Comments WNL Right Testing Position Sitting Flexion 160 Extension 150 External Rotation at 0 degrees Abduction 50 Internal Rotation Behind Back (text) hip pocket PT-OP-L Special Tests Start: 12/21/20 08:54 Freq: Status: Active Protocol: Document 12/21/20 08:54 OF (Rec: 12/21/20 09:21 OF [id number]) Special Tests Cervical Spine Special Tests Spurling's Test Test Results neg Comments no radicular symptoms R or L Neural Special Tests- Upper Body Ulnar Nerve Tension Test Results Neg PT-OP-M Strength Start: 12/21/20 08:54 Freq: Status: Active Protocol: Document 12/21/20 08:54 OF (Rec: 12/21/20 09:21 OF [id number]) Cervical Spine Strength Cervical Spine Manual Muscle Testing Flexion (C1-2) 5 Normal Extension 5 Normal Rotation Left 5 Normal Rotation Right 5 Normal Lateral Flexion Left (C3) 5 Normal Lateral Flexion Right (C3) 5 Normal PT-OP-Q Treatments Start: 12/21/20 08:54 Freq: Status: Active Protocol: Document 07/29/21 09:30 MA (Rec: 07/29/21 10:27 MA [id number]) Therapeutic Exercises Supine Exercises AAROM Supine Exercise Name flex, ER, ABD Equipment Used wand Reps/Minutes 10x 5SH Comments encouraged pt to move in painfree range today Sidelying Exercises Sleeper Stretch Side right Reps/Minutes 2x30 Comments cued pain free range Sitting Exercises Table Slide Sitting Exercise Name Shd flexion Side bilateral Reps/Minutes 2x30 SH Comments added to HEP Wrist flexor stretch Side right Reps/Minutes x30 Comments added to HEP shoulder posterior capsule Sitting Exercise Name crossbody stretch Side right Reps/Minutes 30s x5 Comments for HEP Manual Therapy Treatment Soft Tissue Mobilization lats Mobilization Type Myofascial Release Intensity/Depth Moderate Body Position Sidelying trap & levator scap Body Location deep tissue, rhomboids today as well as UT/mid trap and levator Mobilization Type Myofascial Release,Sustained Pressure,Trigger Point Release Intensity/Depth Moderate Body Position Prone Comments trigger points R UT and rhomboids PT-OP-R Modalities Start: 12/21/20 08:54 Freq: Status: Active Protocol: Document 07/29/21 09:30 MA (Rec: 07/29/21 10:27 MA [id number]) Electric Stimulation Electric Stimulation IFC Body Location R scapula Duration (Minutes) 10 Intensity 12 Target/Sweep Sweep High/Low Low Patient Position Hooklying Combined With Heat/Cold Hot Pack PT-OP-T Assessment and Plan Start: 12/21/20 08:54 Freq: Status: Active Protocol: Document 07/29/21 09:30 MA (Rec: 07/29/21 10:27 MA [id number]) Physical Therapy Assessment Goals shoulder ROM Impairment limited R shoulder AROM Type Photography Supervisor Goal (LTG) pt will regain full active shoulder flexion and abduction compared to L with minimal discomfort 05/26/21 - Pt continues to lack 25-30 degrees AROM into flexion and abduction compared with left side 07/21/21 - Flexion and abduction match left side. ER lacks 10 degrees compared to left. IR significantly reduced and painful compared to left. LTG Duration 09/02/21 3 Impairment UE pain Short Term Goal (STG) 10/5 asssess next visit Pt will demo supine chin tuck x10sec to improve postural control STG Duration 2 weeks Type Photography Supervisor Goal (LTG) 04/12 in progress pt has neurosign to R hand only 1-2 times a day for very short period of time 05/26/21 - Pt continues to have neuro sign R wrist and hand - most pronounced with wrist flexion Pt will demo supine chin tuck x30sec to improve tolerance for work 07/21/21 - less frequent and less intense neurosign right hand LTG Duration 09/02/21 2 Impairment pain with work Short Term Goal (STG) 10/5 asssess next visit Pt will improve quickdash score to <30% to demonstrate improved function at work STG Duration 2 weeks Correction Goal (LTG) Pt will improve quickdash to < 19% to return to I PLOF. 05/26/21 - 55% on QuickDash today 07/21/21 No change LTG Duration 09/02/21 1 Impairment no HEP Short Term Goal (STG) 02/24 pt is I for HEP Pt will be I with basic HEP for stretching and strengthening STG Duration 2 weeks Type Photography Supervisor Goal (LTG) 04/12 in progress pt still needs occasional cues for corrective exercises d/t his poor body awareness Pt will be I with advanced HEP for self mobilization, strengthening exercises to maximize functional return. LTG Duration 09/02/21 Assessment Summary Assessment Pt feels stretch through lats today during AAROM flexion but no pain. He has minor pain during AAROM ER. Encouraged pt to move through painfree range during all AAROM exercises and to hold where he feels a stretch. Added table slide shoulder flexion exercise to HEP. Physical Therapy Plan Frequency and Duration Frequency of Treatment 1-2x/ week Duration of Treatment 6 weeks Plan of Care Start Date 07/21/21 Plan of Care End Date 09/02/21 Therapeutic Interventions Therapeutic Interventions Home Exercise Program,Manual Therapy,Neuromuscular Re- education,Self-Care/Home Management,Soft Tissue Mobilization,Therapeutic Exercises Modalities Cold Pack/Ice Massage,Electric Stimulation,Hot Packs, Infrared Therapy,Traction- Mechanical,Ultrasound Next Visit Focus/Plan Next Note Type Treatment Note Next Visit Plan Warm up with AAROM HEP exercises and continue with prone exercises over T-ball. Pt may bring in TENS unit if he purchases it for instructions for home use.
--- NOTE | 2021-08-03 12:47 | PT.OTN ---
Current Diagnoses Pain in right shoulder (08/03/21) Other cervical disc degeneration, unspecified cervical region (08/03/21) Physical Therapy Treatment Note PT-OP-A Visit Information Start: 12/21/20 08:54 Freq: Status: Active Protocol: Document 08/03/21 11:05 MA (Rec: 08/03/21 11:49 MA [id number]) Out-Patient Physical Therapy Visit Information Visit Information Visit Type Treatment Note Visit Start Time 11:02 Visit Stop Time 11:58 Total Visit Minutes 56 Visit Number 26 Number of DERMATOPATHOLOGIST Visits [address] scan indicates DDD is present at C5-6 and C6-7, and [id number] at C4-5. PT-OP-B Current Condition Start: 12/21/20 08:54 Freq: Status: Active Protocol: Document 12/21/20 08:54 OF (Rec: 12/21/20 09:21 OF [id number]) Current Condition History of Current Condition Onset Date 06/2020 Current Complaints mid back pain, R UE tingling History of Current Condition Pt states he fell leaving work in Jun. He has had shldr/mid back/ UE pain since. 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 Prior Treatments and Tests Pt states he had chirocpractic , PT, and massage therapy in the spring Treatment Goals Patient/Caregiver Goals get back to doing work and what I want without pain Prior Functional Status Baseline Function- ADL's Independent Baseline Function- Mobility Independent Current Functional Impairments (Reported) Functional Limitations- ADL's Difficulty with any prolonged activity Functional Limitations- Work/School pain while working at computer PT-OP-C Subjective Start: 12/21/20 08:54 Freq: Status: Active Protocol: Document 08/03/21 11:05 MA (Rec: 08/03/21 11:49 MA [id number]) OP-PT Subjective Patient Comments Patient Comments Pt reports his neck is a little sore today. He has done his new table slide exercise and states it feels good and he has no pain when performing . He ordered a TENS unit for home use and it will arrive tomorrow. PT-OP-H Neuro Start: 12/21/20 08:54 Freq: Status: Active Protocol: Document 12/21/20 08:54 OF (Rec: 12/21/20 09:21 OF [id number]) Sensation Evaluation Gross Sensation Gross Sensation Left UE Impaired Sensation Description Hyperesthesia,Tingling,Burning Dermatome Impairments C8,T4 Comments Summary Comments pt reports numbness/tingling in R 4th/5th digit. Burning midscapular T spine, R >L PT-OP-K Range of Motion Start: 12/21/20 08:54 Freq: Status: Active Protocol: Document 07/21/21 15:20 AW (Rec: 07/21/21 17:04 AW [id number]) Shoulder Goniometric Range of Motion Shoulder Left Testing Position Sitting Comments WNL Right Testing Position Sitting Flexion 160 Extension 150 External Rotation at 0 degrees Abduction 50 Internal Rotation Behind Back (text) hip pocket PT-OP-L Special Tests Start: 12/21/20 08:54 Freq: Status: Active Protocol: Document 12/21/20 08:54 OF (Rec: 12/21/20 09:21 OF [id number]) Special Tests Cervical Spine Special Tests Spurling's Test Test Results neg Comments no radicular symptoms R or L Neural Special Tests- Upper Body Ulnar Nerve Tension Test Results Neg PT-OP-M Strength Start: 12/21/20 08:54 Freq: Status: Active Protocol: Document 12/21/20 08:54 OF (Rec: 12/21/20 09:21 OF [id number]) Cervical Spine Strength Cervical Spine Manual Muscle Testing Flexion (C1-2) 5 Normal Extension 5 Normal Rotation Left 5 Normal Rotation Right 5 Normal Lateral Flexion Left (C3) 5 Normal Lateral Flexion Right (C3) 5 Normal PT-OP-Q Treatments Start: 12/21/20 08:54 Freq: Status: Active Protocol: Document 08/03/21 11:05 MA (Rec: 08/03/21 11:49 MA [id number]) Cardio Equipment Upper Body Ergometer (UBE) Duration (Minutes) 6 RPM 65 Seat Position 8 Height 2 Other 1' f/b , no dsicomfort Therapeutic Exercises Supine Exercises AAROM Supine Exercise Name flex, ER, ABD Equipment Used wand Reps/Minutes 10x 5SH Comments encouraged pt to move in painfree range today Sitting Exercises Table Slide Sitting Exercise Name Shd flexion Side bilateral Reps/Minutes 2x30 SH Comments added to HEP UT stretch Sitting Exercise Name with towel to anchor shoulder Side right Reps/Minutes [id number] Comments v cues for tolerable ROM; lift ear toward ceiling Manual Therapy Treatment Soft Tissue Mobilization trap & levator scap Body Location deep tissue, rhomboids today as well as UT/mid trap and levator Mobilization Type Myofascial Release,Sustained Pressure,Trigger Point Release Intensity/Depth Moderate Body Position Prone Comments trigger points R UT and rhomboids R RTC Body Location Supraspinatus, infraspinatus Mobilization Type Sustained Pressure,Trigger Point Release Intensity/Depth Moderate Body Position Sidelying Comments w/ active ER PT-OP-R Modalities Start: 12/21/20 08:54 Freq: Status: Active Protocol: Document 08/03/21 11:05 MA (Rec: 08/03/21 11:49 MA [id number]) Electric Stimulation Electric Stimulation IFC Body Location R scapula Duration (Minutes) 10 Intensity 13 Target/Sweep Sweep High/Low Low Patient Position Hooklying Combined With Heat/Cold Hot Pack PT-OP-T Assessment and Plan Start: 12/21/20 08:54 Freq: Status: Active Protocol: Document 08/03/21 11:05 MA (Rec: 08/03/21 11:49 MA [id number]) Physical Therapy Assessment Goals shoulder ROM Impairment limited R shoulder AROM Alf Goal (LTG) pt will regain full active shoulder flexion and abduction compared to L with minimal discomfort 05/26/21 - Pt continues to lack 25-30 degrees AROM into flexion and abduction compared with left side 07/21/21 - Flexion and abduction match left side. ER lacks 10 degrees compared to left. IR significantly reduced and painful compared to left. LTG Duration 09/02/21 3 Impairment UE pain Short Term Goal (STG) 10 asssess next visit Pt will demo supine chin tuck x10sec to improve postural control STG Duration 2 weeks Referral Management Liaison Goal (LTG) 04/12 in progress pt has neurosign to R hand only 1-2 times a day for very short period of time 05/26/21 - Pt continues to have neuro sign R wrist and hand - most pronounced with wrist flexion Pt will demo supine chin tuck x30sec to improve tolerance for work 07/21/21 - less frequent and less intense neurosign right hand LTG Duration 09/02/21 2 Impairment pain with work Short Term Goal (STG) 02/08 asssess next visit Pt will improve quickdash score to <30% to demonstrate improved function at work STG Duration 2 weeks Alf Goal (LTG) Pt will improve quickdash to < 19% to return to I PLOF. 05/26/21 - 55% on QuickDash today 07/21/21 No change LTG Duration 09/02/21 1 Impairment no HEP Short Term Goal (STG) 02/24 pt is I for HEP Pt will be I with basic HEP for stretching and strengthening STG Duration 2 weeks Alf Goal (LTG) 04/12 in progress pt still needs occasional cues for corrective exercises d/t his poor body awareness Pt will be I with advanced HEP for self mobilization, strengthening exercises to maximize functional return. LTG Duration 09/02/21 Assessment Summary Assessment Pt continues to have limited ROM during R shd flexion and ABD. His range is improving and he can now get to ~100 degrees flexion before feeling pain during AAROM vs 90 degrees previously. Encouraged pt continue with flexion stretch (table slide) and all other HEP exercises while in [place] next week. Physical Therapy Plan Frequency and Duration Frequency of Treatment 1-2x/ week Duration of Treatment 6 weeks Plan of Care Start Date 07/21/21 Plan of Care End Date 09/02/21 Therapeutic Interventions Therapeutic Interventions Home Exercise Program,Manual Therapy,Neuromuscular Re- education,Self-Care/Home Management,Soft Tissue Mobilization,Therapeutic Exercises Modalities Cold Pack/Ice Massage,Electric Stimulation,Hot Packs, Infrared Therapy,Traction- Mechanical,Ultrasound Next Visit Focus/Plan Next Note Type Treatment Note Next Visit Plan Warm up with AAROM HEP exercises and continue with prone exercises over T-ball. Pt may bring in TENS unit if he purchases it for instructions for home use.
--- NOTE | 2021-08-18 17:09 | PT.OTN ---
Current Diagnoses Pain in right shoulder (08/18/21) Other cervical disc degeneration, unspecified cervical region (08/18/21) Physical Therapy Treatment Note PT-OP-A Visit Information Start: 12/21/20 08:54 Freq: Status: Active Protocol: Document 08/18/21 16:04 MA (Rec: 08/18/21 17:06 MA [id number]) Out-Patient Physical Therapy Visit Information Visit Information Visit Type Treatment Note Visit Start Time 16:00 Visit Stop Time 17:00 Total Visit Minutes 60 Visit Number 27 Number of MIXER OPERATOR HELPER HOT METAL Visits [address] scan indicates DDD is present at C5-6 and C6-7, and [id number] at C4-5. PT-OP-B Current Condition Start: 12/21/20 08:54 Freq: Status: Active Protocol: Document 12/21/20 08:54 OF (Rec: 12/21/20 09:21 OF [id number]) Current Condition History of Current Condition Onset Date 06/2020 Current Complaints mid back pain, R UE tingling History of Current Condition Pt states he fell leaving work in Jun. He has had shldr/mid back/ UE pain since. 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 Prior Treatments and Tests Pt states he had chirocpractic , PT, and massage therapy in the spring Treatment Goals Patient/Caregiver Goals get back to doing work and what I want without pain Prior Functional Status Baseline Function- ADL's Independent Baseline Function- Mobility Independent Current Functional Impairments (Reported) Functional Limitations- ADL's Difficulty with any prolonged activity Functional Limitations- Work/School pain while working at computer PT-OP-C Subjective Start: 12/21/20 08:54 Freq: Status: Active Protocol: Document 08/18/21 16:04 MA (Rec: 08/18/21 17:06 MA [id number]) OP-PT Subjective Patient Comments Patient Comments Pt feels his shoulder is still tight but he can move it more than he used to be able to. PT-OP-H Neuro Start: 12/21/20 08:54 Freq: Status: Active Protocol: Document 12/21/20 08:54 OF (Rec: 12/21/20 09:21 OF [id number]) Sensation Evaluation Gross Sensation Gross Sensation Left UE Impaired Sensation Description Hyperesthesia,Tingling,Burning Dermatome Impairments C8,T4 Comments Summary Comments pt reports numbness/tingling in R 4th/5th digit. Burning midscapular T spine, R >L PT-OP-K Range of Motion Start: 12/21/20 08:54 Freq: Status: Active Protocol: Document 07/21/21 15:20 AW (Rec: 07/21/21 17:04 AW [id number]) Shoulder Goniometric Range of Motion Shoulder Left Testing Position Sitting Comments WNL Right Testing Position Sitting Flexion 160 Extension 150 External Rotation at 0 degrees Abduction 50 Internal Rotation Behind Back (text) hip pocket PT-OP-L Special Tests Start: 12/21/20 08:54 Freq: Status: Active Protocol: Document 12/21/20 08:54 OF (Rec: 12/21/20 09:21 OF [id number]) Special Tests Cervical Spine Special Tests Spurling's Test Test Results neg Comments no radicular symptoms R or L Neural Special Tests- Upper Body Ulnar Nerve Tension Test Results Neg PT-OP-M Strength Start: 12/21/20 08:54 Freq: Status: Active Protocol: Document 12/21/20 08:54 OF (Rec: 12/21/20 09:21 OF [id number]) Cervical Spine Strength Cervical Spine Manual Muscle Testing Flexion (C1-2) 5 Normal Extension 5 Normal Rotation Left 5 Normal Rotation Right 5 Normal Lateral Flexion Left (C3) 5 Normal Lateral Flexion Right (C3) 5 Normal PT-OP-Q Treatments Start: 12/21/20 08:54 Freq: Status: Active Protocol: Document 08/18/21 16:04 MA (Rec: 08/18/21 17:06 MA [id number]) Therapeutic Exercises Sitting Exercises Table Slide Sitting Exercise Name Shd flexion Side bilateral Reps/Minutes 2x30 SH Comments added to HEP shoulder posterior capsule Sitting Exercise Name crossbody stretch Side right Reps/Minutes 30s x5 Comments for HEP Standing Exercises pec stretch Standing Exercise Name arms behind back Reps/Minutes 20sx 4 Comments for HEP, with cervical extension Manual Therapy Treatment Soft Tissue Mobilization Pecs Body Location R pec major Intensity/Depth Moderate Body Position Hooklying Comments hands behind head lats Mobilization Type Myofascial Release Intensity/Depth Moderate Body Position Sidelying trap & levator scap Body Location deep tissue, rhomboids today as well as UT/mid trap and levator Mobilization Type Myofascial Release,Sustained Pressure,Trigger Point Release Intensity/Depth Moderate Body Position Prone Comments trigger points R UT and rhomboids R RTC Body Location Supraspinatus, infraspinatus Mobilization Type Sustained Pressure,Trigger Point Release Intensity/Depth Moderate Body Position Sidelying Comments w/ active ER Self-Care/Home Management Treatment Education Patient Education Pain Management Other Education Educated pt on settings for Chronic shd pain using personal TENS unit. 175-200 pulse width, 35-50 frequency, 20 min at home. PT-OP-R Modalities Start: 12/21/20 08:54 Freq: Status: Active Protocol: Document 08/18/21 16:04 MA (Rec: 08/18/21 17:08 MA [id number]) Electric Stimulation Electric Stimulation IFC Body Location R scapula Duration (Minutes) 15 Frequency 50 Pulse Width 200 Patient Position Hooklying Combined With Heat/Cold Hot Pack Comments Pt's personal TENS unit PT-OP-T Assessment and Plan Start: 12/21/20 08:54 Freq: Status: Active Protocol: Document 08/18/21 16:04 MA (Rec: 08/18/21 17:06 MA [id number]) Physical Therapy Assessment Goals shoulder ROM Impairment limited R shoulder AROM Data Entry Manager Goal (LTG) pt will regain full active shoulder flexion and abduction compared to L with minimal discomfort 05/26/21 - Pt continues to lack 25-30 degrees AROM into flexion and abduction compared with left side 07/21/21 - Flexion and abduction match left side. ER lacks 10 degrees compared to left. IR significantly reduced and painful compared to left. LTG Duration 09/02/21 3 Impairment UE pain Short Term Goal (STG) 10/ asssess next visit Pt will demo supine chin tuck x10sec to improve postural control STG Duration 2 weeks Custodial Goal (LTG) 04/12 in progress pt has neurosign to R hand only 1-2 times a day for very short period of time 05/26/21 - Pt continues to have neuro sign R wrist and hand - most pronounced with wrist flexion Pt will demo supine chin tuck x30sec to improve tolerance for work 07/21/21 - less frequent and less intense neurosign right hand LTG Duration 09/02/21 2 Impairment pain with work Short Term Goal (STG) 02/08 asssess next visit Pt will improve quickdash score to <30% to demonstrate improved function at work STG Duration 2 weeks Custodial Goal (LTG) Pt will improve quickdash to < 19% to return to I PLOF. 05/26/21 - 55% on QuickDash today 07/21/21 No change LTG Duration 09/02/21 1 Impairment no HEP Short Term Goal (STG) 02/24 pt is I for HEP Pt will be I with basic HEP for stretching and strengthening STG Duration 2 weeks Custodial Goal (LTG) 04/12 in progress pt still needs occasional cues for corrective exercises d/t his poor body awareness Pt will be I with advanced HEP for self mobilization, strengthening exercises to maximize functional return. LTG Duration 09/02/21 Assessment Summary Assessment Aric olea with personal TENS unit today. Educated pt on best settings for chronic shoulder pain and proper set up of electrodes around R shd and utilized pt's personal TENS unit at end of session for practice setting up. Pt has some increased tightness through R UT and Lats compared to before pt's vacation but responded well to manual work this session. Pt continues to have pain at ~100 degrees R shd flexion. Will begin jt mobs next session and possibly add self--mob to HEP to improve inferior glide. Physical Therapy Plan Frequency and Duration Frequency of Treatment 1-2x/ week Duration of Treatment 6 weeks Plan of Care Start Date 07/21/21 Plan of Care End Date 09/02/21 Therapeutic Interventions Therapeutic Interventions Home Exercise Program,Manual Therapy,Neuromuscular Re- education,Self-Care/Home Management,Soft Tissue Mobilization,Therapeutic Exercises Modalities Cold Pack/Ice Massage,Electric Stimulation,Hot Packs, Infrared Therapy,Traction- Mechanical,Ultrasound Next Visit Focus/Plan Next Note Type Treatment Note Next Visit Plan Warm up with AAROM HEP exercises, continue with prone exercises over T-ball and consider mobs for improving inferior glide
--- NOTE | 2021-08-31 17:05 | PT.OTN ---
Current Diagnoses Pain in right shoulder (08/31/21) Other cervical disc degeneration, unspecified cervical region (08/31/21) Physical Therapy Treatment Note PT-OP-A Visit Information Start: 12/21/20 08:54 Freq: Status: Active Protocol: Document 08/31/21 14:53 AW (Rec: 08/31/21 16:01 AW [id number]) Out-Patient Physical Therapy Visit Information Visit Information Visit Type Treatment Note Visit Start Time 15:15 Visit Stop Time 16:00 Total Visit Minutes 45 Visit Number 29 Number of GOVERNMENT AFFAIRS MANAGER Visits 0 Evaluation Information Evaluation Date 12/21/[address] scan indicates DDD is present at C5-6 and C6-7, and [id number] at C4-5. PT-OP-B Current Condition Start: 12/21/20 08:54 Freq: Status: Active Protocol: Document 12/21/20 08:54 OF (Rec: 12/21/20 09:21 OF [id number]) Current Condition History of Current Condition Onset Date 06/2020 Current Complaints mid back pain, R UE tingling History of Current Condition Pt states he fell leaving work in Jun. He has had shldr/mid back/ UE pain since. 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 Prior Treatments and Tests Pt states he had chirocpractic , PT, and massage therapy in the spring Treatment Goals Patient/Caregiver Goals get back to doing work and what I want without pain Prior Functional Status Baseline Function- ADL's Independent Baseline Function- Mobility Independent Current Functional Impairments (Reported) Functional Limitations- ADL's Difficulty with any prolonged activity Functional Limitations- Work/School pain while working at computer PT-OP-C Subjective Start: 12/21/20 08:54 Freq: Status: Active Protocol: Document 08/31/21 14:53 AW (Rec: 08/31/21 16:01 AW [id number]) OP-PT Subjective Patient Comments Patient Comments Aric was able to do yard work last weekend but it took extra time. It's like having a small child with me because I know I'll be able to do it but it will take longer and might be annoying. PT-OP-H Neuro Start: 12/21/20 08:54 Freq: Status: Active Protocol: Document 12/21/20 08:54 OF (Rec: 12/21/20 09:21 OF [id number]) Sensation Evaluation Gross Sensation Gross Sensation Left UE Impaired Sensation Description Hyperesthesia,Tingling,Burning Dermatome Impairments C8,T4 Comments Summary Comments pt reports numbness/tingling in R 4th/5th digit. Burning midscapular T spine, R >L PT-OP-K Range of Motion Start: 12/21/20 08:54 Freq: Status: Active Protocol: Document 07/21/21 15:20 AW (Rec: 07/21/21 17:04 AW [id number]) Shoulder Goniometric Range of Motion Shoulder Left Testing Position Sitting Comments WNL Right Testing Position Sitting Flexion 160 Extension 150 External Rotation at 0 degrees Abduction 50 Internal Rotation Behind Back (text) hip pocket PT-OP-L Special Tests Start: 12/21/20 08:54 Freq: Status: Active Protocol: Document 12/21/20 08:54 OF (Rec: 12/21/20 09:21 OF [id number]) Special Tests Cervical Spine Special Tests Spurling's Test Test Results neg Comments no radicular symptoms R or L Neural Special Tests- Upper Body Ulnar Nerve Tension Test Results Neg PT-OP-M Strength Start: 12/21/20 08:54 Freq: Status: Active Protocol: Document 12/21/20 08:54 OF (Rec: 12/21/20 09:21 OF [id number]) Cervical Spine Strength Cervical Spine Manual Muscle Testing Flexion (C1-2) 5 Normal Extension 5 Normal Rotation Left 5 Normal Rotation Right 5 Normal Lateral Flexion Left (C3) 5 Normal Lateral Flexion Right (C3) 5 Normal PT-OP-Q Treatments Start: 12/21/20 08:54 Freq: Status: Active Protocol: Document 08/31/21 14:53 AW (Rec: 08/31/21 16:01 AW [id number]) Gym Equipment Therapeutic Ball Prone Exercise Details Shd ext, hoiz abd, flexion Ball Size/Color 55 cm red ball Body Position Prone Reps/Duration x10 ea Comments no weights; minor discomfort during flexion Therapeutic Exercises Supine Exercises AAROM Supine Exercise Name flex, ER, ABD, Ext Equipment Used wand Reps/Minutes 20x ea Comments in standing today- pain free range w/ flexion improved to 120 Sitting Exercises shoulder posterior capsule Sitting Exercise Name crossbody stretch Side right Reps/Minutes 30s x5 Comments for HEP Other Exercises thread the needle Other Exercise Name thread the needle Side bilateral Reps/Minutes 10x Comments heavy cues for thoracic rotation Child's Pose Side bilateral Reps/Minutes 1' Comments stretching lats, fwd, both sides 4 pt Other Exercise Name Cat/Camel Reps/Minutes 10x each Comments phys/v cuing for thoracic mobility Therapeutic Activity Therapeutic Activity diaphragmatic breathing Name diaphragmatic breathing Comments for rib mobility and pain management Manual Therapy Treatment Soft Tissue Mobilization Pecs Body Location R pec major Intensity/Depth Moderate Body Position Hooklying Comments hands behind head thoracic Body Location paraspinals Mobilization Type Myofascial Release,Sustained Pressure,Trigger Point Release Intensity/Depth Moderate Body Position Prone lats Mobilization Type Myofascial Release Intensity/Depth Moderate Body Position Sidelying trap & levator scap Body Location deep tissue, rhomboids today as well as UT/mid trap and levator Mobilization Type Myofascial Release,Sustained Pressure,Trigger Point Release Intensity/Depth Moderate Body Position Prone Comments trigger points R UT and rhomboids Joint Mobilizations R GHJ Joint inferior Body Position Supine Reps/Duration 5 min Comments MWM into abduction PT-OP-R Modalities Start: 12/21/20 08:54 Freq: Status: Active Protocol: Document 08/24/21 16:50 MA (Rec: 08/24/21 17:42 MA [id number]) Electric Stimulation Electric Stimulation IFC Body Location R scapula Duration (Minutes) 15 Intensity 13 Patient Position Hooklying PT-OP-T Assessment and Plan Start: 12/21/20 08:54 Freq: Status: Active Protocol: Document 08/31/21 14:53 AW (Rec: 08/31/21 16:01 AW [id number]) Physical Therapy Assessment Goals shoulder ROM Impairment limited R shoulder AROM Turn Down Attendant Goal (LTG) pt will regain full active shoulder flexion and abduction compared to L with minimal discomfort 05/26/21 - Pt continues to lack 25-30 degrees AROM into flexion and abduction compared with left side 07/21/21 - Flexion and abduction match left side. ER lacks 10 degrees compared to left. IR significantly reduced and painful compared to left. 08/31/21 - abduction limited to 100 deg, flexion 120 deg LTG Duration 10/28/21 3 Impairment UE pain Short Term Goal (STG) 10/ asssess next visit Pt will demo supine chin tuck x10sec to improve postural control STG Duration 2 weeks Turn Down Attendant Goal (LTG) 04/12 in progress pt has neurosign to R hand only 1-2 times a day for very short period of time 05/26/21 - Pt continues to have neuro sign R wrist and hand - most pronounced with wrist flexion Pt will demo supine chin tuck x30sec to improve tolerance for work 07/21/21 - less frequent and less intense neurosign right hand 08/31/21 - no change LTG Duration 10/28/21 2 Impairment pain with work Short Term Goal (STG) 02/08 asssess next visit Pt will improve quickdash score to <30% to demonstrate improved function at work STG Duration 2 weeks Jail Goal (LTG) Pt will improve quickdash to < 19% to return to I PLOF. 05/26/21 - 55% on QuickDash today 07/21/21 No change LTG Duration 10/28/21 1 Impairment no HEP Short Term Goal (STG) 02/24 pt is I for HEP Pt will be I with basic HEP for stretching and strengthening STG Duration 2 weeks Jail Goal (LTG) 04/12 in progress pt still needs occasional cues for corrective exercises d/t his poor body awareness Pt will be I with advanced HEP for self mobilization, strengthening exercises to maximize functional return. LTG Duration 10/28/21 Progress Towards Goals Progress Towards Goals Progressing Toward Goals,Slow Progress - Other Progress Comments ROM continues to progress in flexion and abduction. Pt still lacking rotation ROM compared with left side. Sensation disturbance is greatly improved. Symptoms are less irritable overall but pt still reports ADL and IADL's taking longer than before injury.. Assessment Summary Assessment Consistent ROM improvements today. Focused treatment on abduction ROM with inferior GH glides. AROM improved slightly post-treatment. Will consider teaching a self inferior mobilization next visit. Physical Therapy Plan Frequency and Duration Frequency of Treatment 1x/Week Duration of Treatment 8 weeks Plan of Care Start Date 08/31/21 Plan of Care End Date 10/28/21 Therapeutic Interventions Therapeutic Interventions Home Exercise Program,Manual Therapy,Neuromuscular Re- education,Self-Care/Home Management,Soft Tissue Mobilization,Therapeutic Exercises Modalities Cold Pack/Ice Massage,Electric Stimulation,Hot Packs, Infrared Therapy,Traction- Mechanical,Ultrasound Next Visit Focus/Plan Next Note Type Treatment Note Next Visit Plan Warm up with standing wannikita TABOR; prone exercises over T- ball and mobs for improving inferior glide. Consider self mob for inferior glide. End with IFC vs TENS at home.
--- NOTE | 2021-08-31 17:06 | PT.OPPOC ---
Physical, Occupational & Speech Therapy At [facility] Current Diagnoses Pain in right shoulder (08/31/21) Other cervical disc degeneration, unspecified cervical region (08/31/21) Visit Care Team Role Provider Type DENTON Carrero Attending Provider Advanced Finisher Hand Primary Care Provider Referring Provider Specialty: Medical Address: [address] [place] [address], [facility] Email: [email or web address] Plan Of Care PT-OP-T Assessment and Plan Start: 12/21/20 08:54 Freq: Status: Active Protocol: Document 08/31/21 14:53 AW (Rec: 08/31/21 16:01 AW [id number]) Physical Therapy Assessment Goals shoulder ROM Impairment limited R shoulder AROM Graphite Pan Drier Tender Goal (LTG) pt will regain full active shoulder flexion and abduction compared to L with minimal discomfort 05/26/21 - Pt continues to lack 25-30 degrees AROM into flexion and abduction compared with left side 07/21/21 - Flexion and abduction match left side. ER lacks 10 degrees compared to left. IR significantly reduced and painful compared to left. 08/31/21 - abduction limited to 100 deg, flexion 120 deg LTG Duration 10/28/21 3 Impairment UE pain Short Term Goal (STG) 10/5 asssess next visit Pt will demo supine chin tuck x10sec to improve postural control STG Duration 2 weeks Graphite Pan Drier Tender Goal (LTG) 04/12 in progress pt has neurosign to R hand only 1-2 times a day for very short period of time 05/26/21 - Pt continues to have neuro sign R wrist and hand - most pronounced with wrist flexion Pt will demo supine chin tuck x30sec to improve tolerance for work 07/21/21 - less frequent and less intense neurosign right hand 08/31/21 - no change LTG Duration 10/28/21 2 Impairment pain with work Short Term Goal (STG) 10/5 asssess next visit Pt will improve quickdash score to <30% to demonstrate improved function at work STG Duration 2 weeks Graphite Pan Drier Tender Goal (LTG) Pt will improve quickdash to < 19% to return to I PLOF. 05/26/21 - 55% on QuickDash today 07/21/21 No change LTG Duration 10/28/21 1 Impairment no HEP Short Term Goal (STG) 02/24 pt is I for HEP Pt will be I with basic HEP for stretching and strengthening STG Duration 2 weeks Skilled Nursing Goal (LTG) 04/12 in progress pt still needs occasional cues for corrective exercises d/t his poor body awareness Pt will be I with advanced HEP for self mobilization, strengthening exercises to maximize functional return. LTG Duration 10/28/21 Progress Towards Goals Progress Towards Goals Progressing Toward Goals,Slow Progress - Other Progress Comments ROM continues to progress in flexion and abduction. Pt still lacking rotation ROM compared with left side. Sensation disturbance is greatly improved. Symptoms are less irritable overall but pt still reports ADL and IADL's taking longer than before injury.. Assessment Summary Assessment Consistent ROM improvements today. Focused treatment on abduction ROM with inferior GH glides. AROM improved slightly post-treatment. Will consider teaching a self inferior mobilization next visit. Physical Therapy Plan Frequency and Duration Frequency of Treatment 1x/Week Duration of Treatment 8 weeks Plan of Care Start Date 08/31/21 Plan of Care End Date 10/28/21 Therapeutic Interventions Therapeutic Interventions Home Exercise Program,Manual Therapy,Neuromuscular Re- education,Self-Care/Home Management,Soft Tissue Mobilization,Therapeutic Exercises Modalities Cold Pack/Ice Massage,Electric Stimulation,Hot Packs, Infrared Therapy,Traction- Mechanical,Ultrasound Next Visit Focus/Plan Next Note Type Treatment Note Next Visit Plan Warm up with standing wand AAROM; prone exercises over T- ball and mobs for improving inferior glide. Consider self mob for inferior glide. End with IFC vs TENS at home. Plan of Care Dates Plan of Care Start Date 08/31/21 Plan of Care End Date 10/28/21 Electronically Signed by: Viktoria Hennessy, PT 08/31/21 [id number] If you are in agreement with this Plan of Care, please return a signed and dated copy. I have reviewed this Plan of Care and certify that the skilled therapy services above are required to meet the patient?s needs. Physician Signature Date Printed Name and Credentials Clinical Instructor Signature Printed Name and Credentials
--- NOTE | 2021-09-14 17:06 | PT.OTN ---
Current Diagnoses Pain in right shoulder (09/14/21) Other cervical disc degeneration, unspecified cervical region (09/14/21) Physical Therapy Treatment Note PT-OP-A Visit Information Start: 12/21/20 08:54 Freq: Status: Active Protocol: Document 09/14/21 14:41 AW (Rec: 09/14/21 15:17 AW [id number]) Out-Patient Physical Therapy Visit Information Visit Information Visit Type Treatment Note Visit Start Time 14:30 Visit Stop Time 15:10 Total Visit Minutes 40 Visit Number 30 Evaluation Information Evaluation Date 12/21/[address] scan indicates DDD is present at C5-6 and C6-7, and [id number] at C4-5. PT-OP-B Current Condition Start: 12/21/20 08:54 Freq: Status: Active Protocol: Document 12/21/20 08:54 OF (Rec: 12/21/20 09:21 OF [id number]) Current Condition History of Current Condition Onset Date 06/2020 Current Complaints mid back pain, R UE tingling History of Current Condition Pt states he fell leaving work in Jun. He has had shldr/mid back/ UE pain since. 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 Prior Treatments and Tests Pt states he had chirocpractic , PT, and massage therapy in the spring Treatment Goals Patient/Caregiver Goals get back to doing work and what I want without pain Prior Functional Status Baseline Function- ADL's Independent Baseline Function- Mobility Independent Current Functional Impairments (Reported) Functional Limitations- ADL's Difficulty with any prolonged activity Functional Limitations- Work/School pain while working at computer PT-OP-C Subjective Start: 12/21/20 08:54 Freq: Status: Active Protocol: Document 09/14/21 14:41 AW (Rec: 09/14/21 15:17 AW [id number]) OP-PT Subjective Patient Comments Patient Comments Pt is doing more even though it takes longer. PT-OP-H Neuro Start: 12/21/20 08:54 Freq: Status: Active Protocol: Document 12/21/20 08:54 OF (Rec: 12/21/20 09:21 OF [id number]) Sensation Evaluation Gross Sensation Gross Sensation Left UE Impaired Sensation Description Hyperesthesia,Tingling,Burning Dermatome Impairments C8,T4 Comments Summary Comments pt reports numbness/tingling in R 4th/5th digit. Burning midscapular T spine, R >L PT-OP-K Range of Motion Start: 12/21/20 08:54 Freq: Status: Active Protocol: Document 07/21/21 15:20 AW (Rec: 07/21/21 17:04 AW [id number]) Shoulder Goniometric Range of Motion Shoulder Left Testing Position Sitting Comments WNL Right Testing Position Sitting Flexion 160 Extension 150 External Rotation at 0 degrees Abduction 50 Internal Rotation Behind Back (text) hip pocket PT-OP-L Special Tests Start: 12/21/20 08:54 Freq: Status: Active Protocol: Document 12/21/20 08:54 OF (Rec: 12/21/20 09:21 OF [id number]) Special Tests Cervical Spine Special Tests Spurling's Test Test Results neg Comments no radicular symptoms R or L Neural Special Tests- Upper Body Ulnar Nerve Tension Test Results Neg PT-OP-M Strength Start: 12/21/20 08:54 Freq: Status: Active Protocol: Document 12/21/20 08:54 OF (Rec: 12/21/20 09:21 OF [id number]) Cervical Spine Strength Cervical Spine Manual Muscle Testing Flexion (C1-2) 5 Normal Extension 5 Normal Rotation Left 5 Normal Rotation Right 5 Normal Lateral Flexion Left (C3) 5 Normal Lateral Flexion Right (C3) 5 Normal PT-OP-Q Treatments Start: 12/21/20 08:54 Freq: Status: Active Protocol: Document 09/14/21 14:41 AW (Rec: 09/14/21 15:17 AW [id number]) Gym Equipment Therapeutic Ball Prone Exercise Details Shd ext, hoiz abd, flexion Ball Size/Color 55 cm red ball Body Position Prone Reps/Duration x10 ea Comments no weights; minor discomfort during flexion Therapeutic Exercises Supine Exercises AAROM Supine Exercise Name flex, ER, ABD, Ext Equipment Used wand Reps/Minutes 20x ea Comments in standing today- flexion range stable ~120 neck stretches Supine Exercise Name lateral flexion/ rotation ( standing) Side bilateral Comments dec movement to the right Prone Exercises Scap Retraction Prone Exercise Name rows Side right Resistance AROM Sitting Exercises shoulder posterior capsule Sitting Exercise Name crossbody stretch Side right Reps/Minutes 30s x5 Comments for HEP thoracic rotation Sitting Exercise Name pull from table, with PT assistance Side bilateral Reps/Minutes 20s x 5 Standing Exercises row Standing Exercise Name row Side bilateral Resistance TB3 Comments HEP shldr ext Side bilateral Resistance TB3 Reps/Minutes 3x10 Comments cues to relax UT, position band for resistance Other Exercises thread the needle Other Exercise Name thread the needle Side bilateral Reps/Minutes 10x Comments heavy cues for thoracic rotation Child's Pose Side bilateral Reps/Minutes 1' Comments stretching lats, fwd, both sides 4 pt Other Exercise Name Cat/Camel Reps/Minutes 10x each Comments phys/v cuing for thoracic mobility Manual Therapy Treatment Soft Tissue Mobilization Pecs Body Location R pec major Intensity/Depth Moderate Body Position Hooklying Comments hands behind head thoracic Body Location paraspinals Mobilization Type Myofascial Release,Sustained Pressure,Trigger Point Release Intensity/Depth Moderate Body Position Prone Joint Mobilizations MWm Joint thoracic Grade II Body Position Sitting Comments MWM-inferior glide with active IR/ER R GHJ Joint inferior Body Position Supine Reps/Duration 5 min Comments MWM into abduction R scap Grade III Body Position Sidelying Reps/Duration 2 mins PT-OP-R Modalities Start: 12/21/20 08:54 Freq: Status: Active Protocol: Document 08/24/21 16:50 MA (Rec: 08/24/21 17:42 MA [id number]) Electric Stimulation Electric Stimulation IFC Body Location R scapula Duration (Minutes) 15 Intensity 13 Patient Position Hooklying PT-OP-T Assessment and Plan Start: 12/21/20 08:54 Freq: Status: Active Protocol: Document 09/14/21 14:41 AW (Rec: 09/14/21 15:17 AW [id number]) Physical Therapy Assessment Goals shoulder ROM Impairment limited R shoulder AROM [facility] Goal (LTG) pt will regain full active shoulder flexion and abduction compared to L with minimal discomfort 05/26/21 - Pt continues to lack 25-30 degrees AROM into flexion and abduction compared with left side 07/21/21 - Flexion and abduction match left side. ER lacks 10 degrees compared to left. IR significantly reduced and painful compared to left. 08/31/21 - abduction limited to 100 deg, flexion 120 deg LTG Duration 10/28/21 3 Impairment UE pain Short Term Goal (STG) 10/5 asssess next visit Pt will demo supine chin tuck x10sec to improve postural control STG Duration 2 weeks Railroad Accountant Goal (LTG) 04/12 in progress pt has neurosign to R hand only 1-2 times a day for very short period of time 05/26/21 - Pt continues to have neuro sign R wrist and hand - most pronounced with wrist flexion Pt will demo supine chin tuck x30sec to improve tolerance for work 07/21/21 - less frequent and less intense neurosign right hand 08/31/21 - no change LTG Duration 10/28/21 2 Impairment pain with work Short Term Goal (STG) 02/08 asssess next visit Pt will improve quickdash score to <30% to demonstrate improved function at work STG Duration 2 weeks Railroad Accountant Goal (LTG) Pt will improve quickdash to < 19% to return to I PLOF. 05/26/21 - 55% on QuickDash today 07/21/21 No change LTG Duration 10/28/21 1 Impairment no HEP Short Term Goal (STG) 02/24 pt is I for HEP Pt will be I with basic HEP for stretching and strengthening STG Duration 2 weeks [facility] Goal (LTG) 04/12 in progress pt still needs occasional cues for corrective exercises d/t his poor body awareness Pt will be I with advanced HEP for self mobilization, strengthening exercises to maximize functional return. LTG Duration 10/28/21 Assessment Summary Assessment Continued focus on GH glides to improve ROM. Pt's pain symptoms are much less irritable today and spasm in upper traps/rhomboids is reduced. Pt has good potential to improve strength as he regains ROM. Physical Therapy Plan Frequency and Duration Frequency of Treatment 1x/Week Duration of Treatment 8 weeks Plan of Care Start Date 08/31/21 Plan of Care End Date 10/28/21 Therapeutic Interventions Therapeutic Interventions Home Exercise Program,Manual Therapy,Neuromuscular Re- education,Self-Care/Home Management,Soft Tissue Mobilization,Therapeutic Exercises Modalities Cold Pack/Ice Massage,Electric Stimulation,Hot Packs, Infrared Therapy,Traction- Mechanical,Ultrasound Next Visit Focus/Plan Next Note Type Treatment Note Next Visit Plan Warm up with standing wand AAROM; prone exercises over T- ball and mobs for improving inferior glide. Consider self mob for inferior glide. End with IFC vs TENS at home.
--- NOTE | 2021-10-05 16:56 | PT.OTN ---
Current Diagnoses Pain in right shoulder (10/05/21) Other cervical disc degeneration, unspecified cervical region (10/05/21) Physical Therapy Treatment Note PT-OP-A Visit Information Start: 12/21/20 08:54 Freq: Status: Active Protocol: Document 10/05/21 15:18 AW (Rec: 10/05/21 16:02 AW [id number]) Out-Patient Physical Therapy Visit Information Visit Information Visit Type Treatment Note Visit Start Time 15:18 Visit Stop Time 16:00 Total Visit Minutes 42 Visit Number 31 Number of MANAGER ASSET Visits 0 Evaluation Information Evaluation Date 12/21/[address] scan indicates DDD is present at C5-6 and C6-7, and [id number] at C4-5. PT-OP-B Current Condition Start: 12/21/20 08:54 Freq: Status: Active Protocol: Document 12/21/20 08:54 OF (Rec: 12/21/20 09:21 OF [id number]) Current Condition History of Current Condition Onset Date 06/2020 Current Complaints mid back pain, R UE tingling History of Current Condition Pt states he fell leaving work in Jun. He has had shldr/mid back/ UE pain since. 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 Prior Treatments and Tests Pt states he had chirocpractic , PT, and massage therapy in the spring Treatment Goals Patient/Caregiver Goals get back to doing work and what I want without pain Prior Functional Status Baseline Function- ADL's Independent Baseline Function- Mobility Independent Current Functional Impairments (Reported) Functional Limitations- ADL's Difficulty with any prolonged activity Functional Limitations- Work/School pain while working at computer PT-OP-C Subjective Start: 12/21/20 08:54 Freq: Status: Active Protocol: Document 10/05/21 15:18 AW (Rec: 10/05/21 16:02 AW [id number]) OP-PT Subjective Patient Comments Patient Comments Pt is feeling much better, thinks TENS unit helps a lot. PT-OP-H Neuro Start: 12/21/20 08:54 Freq: Status: Active Protocol: Document 12/21/20 08:54 OF (Rec: 12/21/20 09:21 OF [id number]) Sensation Evaluation Gross Sensation Gross Sensation Left UE Impaired Sensation Description Hyperesthesia,Tingling,Burning Dermatome Impairments C8,T4 Comments Summary Comments pt reports numbness/tingling in R 4th/5th digit. Burning midscapular T spine, R >L PT-OP-K Range of Motion Start: 12/21/20 08:54 Freq: Status: Active Protocol: Document 07/21/21 15:20 AW (Rec: 07/21/21 17:04 AW [id number]) Shoulder Goniometric Range of Motion Shoulder Left Testing Position Sitting Comments WNL Right Testing Position Sitting Flexion 160 Extension 150 External Rotation at 0 degrees Abduction 50 Internal Rotation Behind Back (text) hip pocket PT-OP-L Special Tests Start: 12/21/20 08:54 Freq: Status: Active Protocol: Document 12/21/20 08:54 OF (Rec: 12/21/20 09:21 OF [id number]) Special Tests Cervical Spine Special Tests Spurling's Test Test Results neg Comments no radicular symptoms R or L Neural Special Tests- Upper Body Ulnar Nerve Tension Test Results Neg PT-OP-M Strength Start: 12/21/20 08:54 Freq: Status: Active Protocol: Document 12/21/20 08:54 OF (Rec: 12/21/20 09:21 OF [id number]) Cervical Spine Strength Cervical Spine Manual Muscle Testing Flexion (C1-2) 5 Normal Extension 5 Normal Rotation Left 5 Normal Rotation Right 5 Normal Lateral Flexion Left (C3) 5 Normal Lateral Flexion Right (C3) 5 Normal PT-OP-Q Treatments Start: 12/21/20 08:54 Freq: Status: Active Protocol: Document 10/05/21 15:18 AW (Rec: 10/05/21 16:02 AW [id number]) Cardio Equipment Upper Body Ergometer (UBE) Duration (Minutes) 6 RPM 65 Seat Position 8 Height 2 Other 1' f/b , no dsicomfort Gym Equipment Therapeutic Ball Prone Exercise Details Shd ext, hoiz abd, flexion Ball Size/Color 55 cm red ball Body Position Prone Reps/Duration 2x10 ea Comments no weights; minor discomfort during hABD Therapeutic Exercises Supine Exercises AAROM Supine Exercise Name flex, ER, ABD, Ext Equipment Used wand Reps/Minutes 20x ea Comments in standing today- flexion range stable ~120 neck stretches Supine Exercise Name lateral flexion/ rotation ( standing) Side bilateral Comments dec movement to the right Sitting Exercises Open book thoracic rotation Sitting Exercise Name Open book mvmt Side bilateral shoulder posterior capsule Sitting Exercise Name crossbody stretch Side right Reps/Minutes 30s x5 Comments for HEP pulleys Sitting Exercise Name flexion, abduction Side bilateral Reps/Minutes 4 mins Comments cued head turns and deep breath at end range Other Exercises Child's Pose Side bilateral Reps/Minutes 1' Comments stretching lats, fwd, both sides Manual Therapy Treatment Soft Tissue Mobilization lats Mobilization Type Myofascial Release Intensity/Depth Moderate Body Position Sidelying trap & levator scap Body Location deep tissue, rhomboids today as well as UT/mid trap and levator Mobilization Type Myofascial Release,Sustained Pressure,Trigger Point Release Intensity/Depth Moderate Body Position Prone Comments trigger points R UT Joint Mobilizations R GHJ Joint inferior Body Position Supine Reps/Duration 5 min Comments MWM into ER. Educated pt on self-inferior mob and provided handout. R scap Grade III Body Position Sidelying Reps/Duration 2 mins PT-OP-R Modalities Start: 12/21/20 08:54 Freq: Status: Active Protocol: Document 08/24/21 16:50 MA (Rec: 08/24/21 17:42 MA [id number]) Electric Stimulation Electric Stimulation IFC Body Location R scapula Duration (Minutes) 15 Intensity 13 Patient Position Hooklying PT-OP-T Assessment and Plan Start: 12/21/20 08:54 Freq: Status: Active Protocol: Document 10/05/21 15:18 AW (Rec: 10/05/21 16:02 AW [id number]) Physical Therapy Assessment Goals shoulder ROM Impairment limited R shoulder AROM Correction Goal (LTG) pt will regain full active shoulder flexion and abduction compared to L with minimal discomfort 05/26/21 - Pt continues to lack 25-30 degrees AROM into flexion and abduction compared with left side 07/21/21 - Flexion and abduction match left side. ER lacks 10 degrees compared to left. IR significantly reduced and painful compared to left. 08/31/21 - abduction limited to 100 deg, flexion 120 deg LTG Duration 10/28/21 3 Impairment UE pain Short Term Goal (STG) 10/5 asssess next visit Pt will demo supine chin tuck x10sec to improve postural control STG Duration 2 weeks Correction Goal (LTG) 04/12 in progress pt has neurosign to R hand only 1-2 times a day for very short period of time 05/26/21 - Pt continues to have neuro sign R wrist and hand - most pronounced with wrist flexion Pt will demo supine chin tuck x30sec to improve tolerance for work 07/21/21 - less frequent and less intense neurosign right hand 08/31/21 - no change LTG Duration 10/28/21 2 Impairment pain with work Short Term Goal (STG) 02/08 asssess next visit Pt will improve quickdash score to <30% to demonstrate improved function at work STG Duration 2 weeks Power Barker Goal (LTG) Pt will improve quickdash to < 19% to return to I PLOF. 05/26/21 - 55% on QuickDash today 07/21/21 No change LTG Duration 10/28/21 1 Impairment no HEP Short Term Goal (STG) 02/24 pt is I for HEP Pt will be I with basic HEP for stretching and strengthening STG Duration 2 weeks Power Barker Goal (LTG) 04/12 in progress pt still needs occasional cues for corrective exercises d/t his poor body awareness Pt will be I with advanced HEP for self mobilization, strengthening exercises to maximize functional return. LTG Duration 10/28/21 Assessment Summary Assessment Pt reports improvement trend. No spasm noted today in rhomboids. Upper traps spasm significantly reduced. ROM is improving and pt would benefit from increased focus on strength moving forward. Physical Therapy Plan Frequency and Duration Frequency of Treatment 1x/Week Duration of Treatment 8 weeks Plan of Care Start Date 08/31/21 Plan of Care End Date 10/28/21 Therapeutic Interventions Therapeutic Interventions Home Exercise Program,Manual Therapy,Neuromuscular Re- education,Self-Care/Home Management,Soft Tissue Mobilization,Therapeutic Exercises Modalities Cold Pack/Ice Massage,Electric Stimulation,Hot Packs, Infrared Therapy,Traction- Mechanical,Ultrasound Next Visit Focus/Plan Next Note Type Treatment Note Next Visit Plan Assess response to self inferior glide mob. Warm up with standing wand AAROM; prone exercises over T-ball and mobs for improving inferior glide. Shoulder strengthening all planes. End with IFC vs TENS at home.
--- NOTE | 2021-10-19 17:18 | PT.OTN ---
Current Diagnoses Pain in right shoulder (10/19/21) Other cervical disc degeneration, unspecified cervical region (10/19/21) Physical Therapy Treatment Note PT-OP-A Visit Information Start: 12/21/20 08:54 Freq: Status: Active Protocol: Document 10/19/21 15:20 AW (Rec: 10/19/21 17:18 AW [id number]) Out-Patient Physical Therapy Visit Information Visit Information Visit Type Treatment Note Visit Start Time 15:20 Visit Stop Time 16:00 Total Visit Minutes 40 Visit Number 32 Number of GRINDER OPERATOR AUTOMATIC Visits 0 Evaluation Information Evaluation Date 12/21/[address] scan indicates DDD is present at C5-6 and C6-7, and [id number] at C4-5. PT-OP-B Current Condition Start: 12/21/20 08:54 Freq: Status: Active Protocol: Document 12/21/20 08:54 OF (Rec: 12/21/20 09:21 OF [id number]) Current Condition History of Current Condition Onset Date 06/2020 Current Complaints mid back pain, R UE tingling History of Current Condition Pt states he fell leaving work in Jun. He has had shldr/mid back/ UE pain since. 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 Prior Treatments and Tests Pt states he had chirocpractic , PT, and massage therapy in the spring Treatment Goals Patient/Caregiver Goals get back to doing work and what I want without pain Prior Functional Status Baseline Function- ADL's Independent Baseline Function- Mobility Independent Current Functional Impairments (Reported) Functional Limitations- ADL's Difficulty with any prolonged activity Functional Limitations- Work/School pain while working at computer PT-OP-C Subjective Start: 12/21/20 08:54 Freq: Status: Active Protocol: Document 10/19/21 15:20 AW (Rec: 10/19/21 17:18 AW [id number]) OP-PT Subjective Patient Comments Patient Comments I'm moving better and my strength is better but I still get twinges that make me stop what I'm doing every now and then. Definitely, I'm getting better. Patient Reported Progress Improving PT-OP-H Neuro Start: 12/21/20 08:54 Freq: Status: Active Protocol: Document 12/21/20 08:54 OF (Rec: 12/21/20 09:21 OF [id number]) Sensation Evaluation Gross Sensation Gross Sensation Left UE Impaired Sensation Description Hyperesthesia,Tingling,Burning Dermatome Impairments C8,T4 Comments Summary Comments pt reports numbness/tingling in R 4th/5th digit. Burning midscapular T spine, R >L PT-OP-K Range of Motion Start: 12/21/20 08:54 Freq: Status: Active Protocol: Document 07/21/21 15:20 AW (Rec: 07/21/21 17:04 AW [id number]) Shoulder Goniometric Range of Motion Shoulder Left Testing Position Sitting Comments WNL Right Testing Position Sitting Flexion 160 Extension 150 External Rotation at 0 degrees Abduction 50 Internal Rotation Behind Back (text) hip pocket PT-OP-L Special Tests Start: 12/21/20 08:54 Freq: Status: Active Protocol: Document 12/21/20 08:54 OF (Rec: 12/21/20 09:21 OF [id number]) Special Tests Cervical Spine Special Tests Spurling's Test Test Results neg Comments no radicular symptoms R or L Neural Special Tests- Upper Body Ulnar Nerve Tension Test Results Neg PT-OP-M Strength Start: 12/21/20 08:54 Freq: Status: Active Protocol: Document 12/21/20 08:54 OF (Rec: 12/21/20 09:21 OF [id number]) Cervical Spine Strength Cervical Spine Manual Muscle Testing Flexion (C1-2) 5 Normal Extension 5 Normal Rotation Left 5 Normal Rotation Right 5 Normal Lateral Flexion Left (C3) 5 Normal Lateral Flexion Right (C3) 5 Normal PT-OP-Q Treatments Start: 12/21/20 08:54 Freq: Status: Active Protocol: Document 10/19/21 15:20 AW (Rec: 10/19/21 17:18 AW [id number]) Cardio Equipment Upper Body Ergometer (UBE) Duration (Minutes) 6 RPM 65 Seat Position 8 Height 2 Other 1' f/b , no discomfort Gym Equipment Therapeutic Ball shoulder walkout Exercise Details shoulder walkout Ball Size/Color 55 cm/red Body Position Prone Reps/Duration x2 Comments Challenging but did not increase pain. Prone Exercise Details Shd ext, hoiz abd, flexion Ball Size/Color 55 cm red ball Body Position Prone Reps/Duration 2x10 ea Comments no weights; minor discomfort during flexion Therapeutic Exercises Supine Exercises hAbd Supine Exercise Name hAbd Side bilateral Equipment Used TB2 Comments cued scap retract Sitting Exercises shoulder posterior capsule Sitting Exercise Name crossbody stretch Side right Reps/Minutes 30s x5 Comments for HEP pulleys Sitting Exercise Name flexion, abduction Side bilateral Reps/Minutes 4 mins Comments cued head turns and deep breath at end range Standing Exercises GH abduction Standing Exercise Name abduction Side right Resistance 1# Equipment Used db Reps/Minutes x12 Comments pt reports pain GH flexion Standing Exercise Name flexion Side right Resistance 1# Equipment Used db Reps/Minutes x12 Comments no pain row Standing Exercise Name row Side bilateral Resistance TB3 Comments HEP shldr ext Side bilateral Resistance TB3 Reps/Minutes 3x10 Comments cues to relax UT Manual Therapy Treatment Soft Tissue Mobilization trap & levator scap Body Location rhomboids, UT/mid trap and levator Mobilization Type Myofascial Release,Sustained Pressure,Trigger Point Release Intensity/Depth Moderate Body Position Prone Comments trigger points R rhomboids; notably reduced tone in UT PT-OP-R Modalities Start: 12/21/20 08:54 Freq: Status: Active Protocol: Document 08/24/21 16:50 MA (Rec: 08/24/21 17:42 MA [id number]) Electric Stimulation Electric Stimulation IFC Body Location R scapula Duration (Minutes) 15 Intensity 13 Patient Position Hooklying PT-OP-T Assessment and Plan Start: 12/21/20 08:54 Freq: Status: Active Protocol: Document 10/19/21 15:20 AW (Rec: 10/19/21 17:18 AW [id number]) Physical Therapy Assessment Goals shoulder ROM Impairment limited R shoulder AROM K9 Handler Goal (LTG) pt will regain full active shoulder flexion and abduction compared to L with minimal discomfort 05/26/21 - Pt continues to lack 25-30 degrees AROM into flexion and abduction compared with left side 07/21/21 - Flexion and abduction match left side. ER lacks 10 degrees compared to left. IR significantly reduced and painful compared to left. 08/31/21 - abduction limited to 100 deg, flexion 120 deg LTG Duration 10/28/21 3 Impairment UE pain Short Term Goal (STG) 10/5 asssess next visit Pt will demo supine chin tuck x10sec to improve postural control STG Duration 2 weeks K9 Handler Goal (LTG) 04/12 in progress pt has neurosign to R hand only 1-2 times a day for very short period of time 05/26/21 - Pt continues to have neuro sign R wrist and hand - most pronounced with wrist flexion Pt will demo supine chin tuck x30sec to improve tolerance for work 07/21/21 - less frequent and less intense neurosign right hand 08/31/21 - no change LTG Duration 10/28/21 2 Impairment pain with work Short Term Goal (STG) 02/08 asssess next visit Pt will improve quickdash score to <30% to demonstrate improved function at work STG Duration 2 weeks K9 Handler Goal (LTG) Pt will improve quickdash to < 19% to return to I PLOF. 05/26/21 - 55% on QuickDash today 07/21/21 No change LTG Duration 10/28/21 1 Impairment no HEP Short Term Goal (STG) 02/24 pt is I for HEP Pt will be I with basic HEP for stretching and strengthening STG Duration 2 weeks Retirement Goal (LTG) 04/12 in progress pt still needs occasional cues for corrective exercises d/t his poor body awareness Pt will be I with advanced HEP for self mobilization, strengthening exercises to maximize functional return. LTG Duration 10/28/21 Assessment Summary Assessment Pt continues to note improvenent trend over time. Focused on strength today and pt reports minor spasm in UT and rhomboids primarily with resisted abduction. Will continue to focus on strength as pt approaches readiness for discharge. Physical Therapy Plan Frequency and Duration Frequency of Treatment 1x/Week Duration of Treatment 8 weeks Plan of Care Start Date 08/31/21 Plan of Care End Date 10/28/21 Therapeutic Interventions Therapeutic Interventions Home Exercise Program,Manual Therapy,Neuromuscular Re- education,Self-Care/Home Management,Soft Tissue Mobilization,Therapeutic Exercises Modalities Cold Pack/Ice Massage,Electric Stimulation,Hot Packs, Infrared Therapy,Traction- Mechanical,Ultrasound Next Visit Focus/Plan Next Note Type Treatment Note Next Visit Plan Assess response to self inferior glide mob. Warm up with standing wand AAROM; prone exercises over T-ball and mobs for improving inferior glide. Shoulder strengthening all planes. End with IFC vs TENS at home.
--- NOTE | 2021-10-27 16:59 | PT.OTN ---
Current Diagnoses Pain in right shoulder (10/27/21) Other cervical disc degeneration, unspecified cervical region (10/27/21) Physical Therapy Treatment Note PT-OP-A Visit Information Start: 12/21/20 08:54 Freq: Status: Active Protocol: Document 10/27/21 16:04 AW (Rec: 10/27/21 16:59 AW [id number]) Out-Patient Physical Therapy Visit Information Visit Information Visit Type Discharge Summary Visit Start Time 16:04 Visit Stop Time 16:45 Total Visit Minutes 41 Visit Number 33 Number of RIGGER THIRD Visits 0 Evaluation Information Evaluation Date 12/21/[address] scan indicates DDD is present at C5-6 and C6-7, and [id number] at C4-5. PT-OP-B Current Condition Start: 12/21/20 08:54 Freq: Status: Active Protocol: Document 12/21/20 08:54 OF (Rec: 12/21/20 09:21 OF [id number]) Current Condition History of Current Condition Onset Date 06/2020 Current Complaints mid back pain, R UE tingling History of Current Condition Pt states he fell leaving work in Jun. He has had shldr/mid back/ UE pain since. 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 Prior Treatments and Tests Pt states he had chirocpractic , PT, and massage therapy in the spring Treatment Goals Patient/Caregiver Goals get back to doing work and what I want without pain Prior Functional Status Baseline Function- ADL's Independent Baseline Function- Mobility Independent Current Functional Impairments (Reported) Functional Limitations- ADL's Difficulty with any prolonged activity Functional Limitations- Work/School pain while working at computer PT-OP-C Subjective Start: 12/21/20 08:54 Freq: Status: Active Protocol: Document 10/27/21 16:04 AW (Rec: 10/27/21 16:59 AW [id number]) OP-PT Subjective Patient Comments Patient Comments I'm doing more and taking less time than before even though my shoulder still hurts . TENS unit helps a lot, elevated head of bed helps with GERD and with shoulder pain. PT-OP-H Neuro Start: 12/21/20 08:54 Freq: Status: Active Protocol: Document 12/21/20 08:54 OF (Rec: 12/21/20 09:21 OF [id number]) Sensation Evaluation Gross Sensation Gross Sensation Left UE Impaired Sensation Description Hyperesthesia,Tingling,Burning Dermatome Impairments C8,T4 Comments Summary Comments pt reports numbness/tingling in R 4th/5th digit. Burning midscapular T spine, R >L PT-OP-K Range of Motion Start: 12/21/20 08:54 Freq: Status: Active Protocol: Document 07/21/21 15:20 AW (Rec: 07/21/21 17:04 AW [id number]) Shoulder Goniometric Range of Motion Shoulder Left Testing Position Sitting Comments WNL Right Testing Position Sitting Flexion 160 Extension 150 External Rotation at 0 degrees Abduction 50 Internal Rotation Behind Back (text) hip pocket PT-OP-L Special Tests Start: 12/21/20 08:54 Freq: Status: Active Protocol: Document 12/21/20 08:54 OF (Rec: 12/21/20 09:21 OF [id number]) Special Tests Cervical Spine Special Tests Spurling's Test Test Results neg Comments no radicular symptoms R or L Neural Special Tests- Upper Body Ulnar Nerve Tension Test Results Neg PT-OP-M Strength Start: 12/21/20 08:54 Freq: Status: Active Protocol: Document 12/21/20 08:54 OF (Rec: 12/21/20 09:21 OF [id number]) Cervical Spine Strength Cervical Spine Manual Muscle Testing Flexion (C1-2) 5 Normal Extension 5 Normal Rotation Left 5 Normal Rotation Right 5 Normal Lateral Flexion Left (C3) 5 Normal Lateral Flexion Right (C3) 5 Normal PT-OP-Q Treatments Start: 12/21/20 08:54 Freq: Status: Active Protocol: Document 10/27/21 16:04 AW (Rec: 10/27/21 16:59 AW [id number]) Cardio Equipment Upper Body Ergometer (UBE) Duration (Minutes) 6 RPM 65 Seat Position 8 Height 2 Other 1' f/b , no discomfort Gym Equipment Therapeutic Ball shoulder walkout Exercise Details shoulder walkout Ball Size/Color 55 cm/red Body Position Prone Reps/Duration x2 Comments Challenging but did not increase pain. Prone Exercise Details Shd ext, hoiz abd, flexion Ball Size/Color 55 cm red ball Body Position Prone Reps/Duration 2x10 ea Comments no weights; minor discomfort during flexion Therapeutic Exercises Standing Exercises D1 flexion Resistance TB1, 1# db (more tolerable) GH flexion Standing Exercise Name flexion Side right Resistance 1# Equipment Used db Reps/Minutes x12 Comments no pain row Standing Exercise Name row Side bilateral Resistance TB3 Comments HEP shldr ext Side bilateral Resistance TB3 Reps/Minutes 3x10 Comments cues to relax UT Other Exercises Child's Pose Side bilateral Reps/Minutes 1' Comments stretching lats, fwd, both sides Manual Therapy Treatment Soft Tissue Mobilization trap & levator scap Body Location rhomboids, UT/mid trap and levator Mobilization Type Myofascial Release,Sustained Pressure,Trigger Point Release Intensity/Depth Moderate Body Position Prone Comments trigger points R rhomboids; notably reduced tone in UT PT-OP-R Modalities Start: 12/21/20 08:54 Freq: Status: Active Protocol: Document 08/24/21 16:50 MA (Rec: 08/24/21 17:42 MA [id number]) Electric Stimulation Electric Stimulation IFC Body Location R scapula Duration (Minutes) 15 Intensity 13 Patient Position Hooklying PT-OP-T Assessment and Plan Start: 12/21/20 08:54 Freq: Status: Active Protocol: Document 10/27/21 16:04 AW (Rec: 10/27/21 16:59 AW [id number]) Physical Therapy Assessment Goals shoulder ROM Impairment limited R shoulder AROM [facility] Goal (LTG) pt will regain full active shoulder flexion and abduction compared to L with minimal discomfort 05/26/21 - Pt continues to lack 25-30 degrees AROM into flexion and abduction compared with left side 07/21/21 - Flexion and abduction match left side. ER lacks 10 degrees compared to left. IR significantly reduced and painful compared to left. 08/31/21 - abduction limited to 100 deg, flexion 120 deg 10/27/21 - Internal rotation L is to T8. R is to T12 LTG Duration 10/28/21 3 Impairment UE pain Short Term Goal (STG) 10 asssess next visit Pt will demo supine chin tuck x10sec to improve postural control STG Duration 2 weeks [employer] Goal (LTG) 12 in progress pt has neurosign to R hand only 1-2 times a day for very short period of time 05/26/21 - Pt continues to have neuro sign R wrist and hand - most pronounced with wrist flexion Pt will demo supine chin tuck x30sec to improve tolerance for work 07/21/21 - less frequent and less intense neurosign right hand 08/31/21 - no change 10/27/21 - Neurosign is stable and most evident with toilet hygiene. It goes away within 5 -10 minutes LTG Duration 10/28/21 2 Impairment pain with work Short Term Goal (STG) 02/08 asssess next visit Pt will improve quickdash score to <30% to demonstrate improved function at work STG Duration 2 weeks [facility] Goal (LTG) Pt will improve quickdash to < 19% to return to I PLOF. 05/26/21 - 55% on QuickDash today 07/21/21 No change 10/27/21 - 41% LTG Duration 10/28/21 1 Impairment no HEP Short Term Goal (STG) 02/24 pt is I for HEP Pt will be I with basic HEP for stretching and strengthening STG Duration 2 weeks [facility] Goal (LTG) 04/12 in progress pt still needs occasional cues for corrective exercises d/t his poor body awareness Pt will be I with advanced HEP for self mobilization, strengthening exercises to maximize functional return. LTG Duration 10/28/21 Progress Towards Goals Progress Towards Goals Progressing Toward Goals Progress Comments Pt has progressed well with ROM, strength, and functional activities. Remaining deficits have been stable for past two months. Assessment Summary Assessment Pt is happy with his progress and is using his right hand much more regularly with less avoidance behavior. Focused today on assessing goals and continued strengthening to consolidate HEP. Physical Therapy Plan Frequency and Duration Frequency of Treatment 1x/Week Duration of Treatment 8 weeks Plan of Care Start Date 08/31/21 Plan of Care End Date 10/28/21 Therapeutic Interventions Therapeutic Interventions Home Exercise Program,Manual Therapy,Neuromuscular Re- education,Self-Care/Home Management,Soft Tissue Mobilization,Therapeutic Exercises Modalities Cold Pack/Ice Massage,Electric Stimulation,Hot Packs, Infrared Therapy,Traction- Mechanical,Ultrasound
--- NOTE | 2021-10-27 17:04 | PT.OPDS ---
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 He has had shldr/mid back/ UE pain since. 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 Prior Treatments and Tests Pt states he had chirocpractic , PT, and massage therapy in the spring Treatment Goals Patient/Caregiver Goals get back to doing work and what I want without pain Prior Functional Status Baseline Function- ADL's Independent Baseline Function- Mobility Independent Current Functional Impairments (Reported) Functional Limitations- ADL's Difficulty with any prolonged activity Functional Limitations- Work/School pain while working at computer PT-OP-C Subjective Start: 12/21/20 08:54 Freq: Status: Active Protocol: Document 10/27/21 16:04 AW (Rec: 10/27/21 16:59 AW [id number]) OP-PT Subjective Patient Comments Patient Comments I'm doing more and taking less time than before even though my shoulder still hurts . TENS unit helps a lot, elevated head of bed helps with GERD and with shoulder pain. PT-OP-H Neuro Start: 12/21/20 08:54 Freq: Status: Active Protocol: Document 12/21/20 08:54 OF (Rec: 12/21/20 09:21 OF [id number]) Sensation Evaluation Gross Sensation Gross Sensation Left UE Impaired Sensation Description Hyperesthesia,Tingling,Burning Dermatome Impairments C8,T4 Comments Summary Comments pt reports numbness/tingling in R 4th/5th digit. Burning midscapular T spine, R >L PT-OP-K Range of Motion Start: 12/21/20 08:54 Freq: Status: Active Protocol: Document 07/21/21 15:20 AW (Rec: 07/21/21 17:04 AW [id number]) Shoulder Goniometric Range of Motion Shoulder Left Testing Position Sitting Comments WNL Right Testing Position Sitting Flexion 160 Extension 150 External Rotation at 0 degrees Abduction 50 Internal Rotation Behind Back (text) hip pocket PT-OP-L Special Tests Start: 12/21/20 08:54 Freq: Status: Active Protocol: Document 12/21/20 08:54 OF (Rec: 12/21/20 09:21 OF [id number]) Special Tests Cervical Spine Special Tests Spurling's Test Test Results neg Comments no radicular symptoms R or L Neural Special Tests- Upper Body Ulnar Nerve Tension Test Results Neg PT-OP-M Strength Start: 12/21/20 08:54 Freq: Status: Active Protocol: Document 12/21/20 08:54 OF (Rec: 12/21/20 09:21 OF [id number]) Cervical Spine Strength Cervical Spine Manual Muscle Testing Flexion (C1-2) 5 Normal Extension 5 Normal Rotation Left 5 Normal Rotation Right 5 Normal Lateral Flexion Left (C3) 5 Normal Lateral Flexion Right (C3) 5 Normal PT-OP-T Assessment and Plan Start: 12/21/20 08:54 Freq: Status: Active Protocol: Document 10/27/21 16:04 AW (Rec: 10/27/21 16:59 AW [id number]) Physical Therapy Assessment Goals shoulder ROM Impairment limited R shoulder AROM [facility] Goal (LTG) pt will regain full active shoulder flexion and abduction compared to L with minimal discomfort 05/26/21 - Pt continues to lack 25-30 degrees AROM into flexion and abduction compared with left side 07/21/21 - Flexion and abduction match left side. ER lacks 10 degrees compared to left. IR significantly reduced and painful compared to left. 08/31/21 - abduction limited to 100 deg, flexion 120 deg 10/27/21 - Internal rotation L is to T8. R is to T12 LTG Duration 10/28/21 3 Impairment UE pain Short Term Goal (STG) 10 asssess next visit Pt will demo supine chin tuck x10sec to improve postural control STG Duration 2 weeks [employer] Goal (LTG) 04/12 in progress pt has neurosign to R hand only 1-2 times a day for very short period of time 05/26/21 - Pt continues to have neuro sign R wrist and hand - most pronounced with wrist flexion Pt will demo supine chin tuck x30sec to improve tolerance for work 07/21/21 - less frequent and less intense neurosign right hand 08/31/21 - no change 10/27/21 - Neurosign is stable and most evident with toilet hygiene. It goes away within 5 -10 minutes LTG Duration 10/28/21 2 Impairment pain with work Short Term Goal (STG) 02/08 asssess next visit Pt will improve quickdash score to <30% to demonstrate improved function at work STG Duration 2 weeks [facility] Goal (LTG) Pt will improve quickdash to < 19% to return to I PLOF. 05/26/21 - 55% on QuickDash today 07/21/21 No change 10/27/21 - 41% LTG Duration 10/28/21 1 Impairment no HEP Short Term Goal (STG) 02/24 pt is I for HEP Pt will be I with basic HEP for stretching and strengthening STG Duration 2 weeks Retirement Goal (LTG) 04/12 in progress pt still needs occasional cues for corrective exercises d/t his poor body awareness Pt will be I with advanced HEP for self mobilization, strengthening exercises to maximize functional return. LTG Duration 10/28/21 Progress Towards Goals Progress Towards Goals Progressing Toward Goals Progress Comments Pt has progressed well with ROM, strength, and functional activities. Remaining deficits have been stable for past two months. Assessment Summary Assessment Pt is happy with his progress and is using his right hand much more regularly with less avoidance behavior. Focused today on assessing goals and continued strengthening to consolidate HEP. Physical Therapy Plan Frequency and Duration Frequency of Treatment 1x/Week Duration of Treatment 8 weeks Plan of Care Start Date 08/31/21 Plan of Care End Date 10/28/21 Therapeutic Interventions Therapeutic Interventions Home Exercise Program,Manual Therapy,Neuromuscular Re- education,Self-Care/Home Management,Soft Tissue Mobilization,Therapeutic Exercises Modalities Cold Pack/Ice Massage,Electric Stimulation,Hot Packs, Infrared Therapy,Traction- Mechanical,Ultrasound Discharge Physical Therapy Discharge Reasons [place] in Progress Discharge Comments Pt's ROM and strength have been stable for at least two months. QuickDash improved and pt reports more regular engagement with daily activities. He is appropriate for discharge to [facility]. Pt agrees with plan and understands he will need a new referral if he wants to return.
== END 2021-11-02 14:04 ==
LOC: PHYS 16:00
PROVIDERS: PCP Registered Nurse; Referring Provider Registered Nurse; Visit Provider Registered Nurse
DX: M50.30 Other cervical disc degeneration, unspecified cervical region (principal); M25.511 Pain in right shoulder
CPT/HCPCS: 97014; 97110; 97140; 97161; 97535; G0283

== ENCOUNTER 2022-02-05 09:12 | Inpatient (IN) | payer OTHER, SELFPAY ==
[2022-02-05] VITALS (11 sets, daily range): BP systolic 107–134; BP diastolic 55–68; PULSE 64–89; RESP 16–20; TEMP 35.6–36.7; O2SAT 94–97; BMI 31.7
--- NOTE | 2022-02-05 09:29 | DI.CT.S_ITS ---
PROCEDURE: CT ABDOMEN PELVIS W CON INDICATIONS: abdominal pain TECHNIQUE: After the administration of intravenous contrast, axial sections acquired from the lung bases to the pubic symphysis. Coronal and sagittal reformats were performed. For radiation dose reduction, the following was used: automated exposure control, adjustment of mA and/or kV according to patient size. COMPARISON: None. FINDINGS: Lower thorax: The lung bases are clear. Heart size normal. Small hiatal hernia noted. Liver: Normal in size and attenuation. No contour deformity present. Biliary system: No calcified cholelithiasis or pericholecystic inflammation. No intra or extrahepatic bile duct dilatation. Pancreas: Unremarkable without mass or inflammation evident. Spleen: Normal in size and density. Adrenals: Normal morphology and density. Reproductive system: Unremarkable as visualized. Urinary system: Left extrarenal pelvis and peripelvic cysts without convincing evidence of acute hydronephrosis. No perinephric edema or calculus present. Gastrointestinal system: Bowel wall thickening associated with the sigmoid colon adjacent to right lower quadrant abscess is likely reactive. No bowel obstruction. Peritoneal spaces: There is a right lower quadrant abscess measuring 5 cm with surrounding inflammatory change. Suggestion of abnormal appendix noted associated posteriorly. No evidence of appendicolith. No free air Vasculature: The IVC, aorta and iliac vasculature are unremarkable. Abdominal wall: Abdominal wall intact without evidence of ventral or inguinal hernias. Musculoskeletal: Normal bone mineralization. No acute fractures. IMPRESSION: 1. Right lower quadrant 5 cm abscess likely result of perforated appendix noted posteriorly. No evidence of appendicolith, obstruction or free air. 2. Adjacent sigmoid colon bowel wall thickening is likely reactive and secondary to adjacent abscess Approved by: Vel Yoo M.D. on 02/05/2022 at 9:47
[2022-02-05 09:40] LABS: Add Manual Diff / Slide Review NO; Basophils Absolute Auto 100 /uL (0-100); Basophils Percent Auto 0.5 % (0-2); Eosinophils Absolute Auto 100 /uL (0-450); Eosinophils Percent Auto 0.7 % (2-4); Hematocrit 40.3 % (41-53); Hemoglobin 13.5 g/dL (13.5-17.5); Lymphocytes Absolute Auto 1900 /uL (1100-4500); Lymphocytes Percent Auto 9.5 % (25-40); Mean Corpuscular HGB Conc 33.6 % (30-36); Mean Corpuscular Hemoglobin 29.8 PG (26-34); Mean Corpuscular Volume 88.7 fL (80-100); Monocytes Absolute Auto 1100 /uL (0-900); Monocytes Percent Auto 5.8 % (3-14); Neutrophils Absolute Auto 16300 /uL (1500-7000); Neutrophils Percent Auto 83.5 % (50-75); Platelet Count 443 X10^3/uL (150-400); Red Blood Cell Count 4.54 X10^6/uL (4.5-5.9); Red Cell Distribution Width 13.6 % (11.6-14.8); White Blood Cell Count 19.5 X10^3/uL (4.5-11.0)
--- NOTE | 2022-02-05 09:47 | ED_ITS ---
HPI - General Adult General Chief complaint: Abdominal Pain Stated complaint: stomach ache [id number] D/fever weakness Time Seen by Provider: 02/05/22 09:28 Source: patient Mode of arrival: Wheelchair History of Present Illness HPI narrative: 61-year-old gentleman with no additional medical history, occasional reflux presents with 2 weeks of generalized abdominal pain, bloating, intermittent fevers, intermittent diarrhea and constipation, increasing weakness and lethargy. Notes that he has not been vomiting. No specific weight changes. There has been no blood in his stool. He was seen initially in the walk-in clinic and was given Pepcid and instructed to follow-up if he was not improving within a day or so. He tried to schedule appointment with his prior primary care clinic was told that he had to reestablish care after May. Was seen in neither primary care clinic with labs ordered for this upcoming Sunday. He has continued to worsen in comes in for further evaluation. He describes no dizziness, headaches, paresthesias, cough, palpitations, chest pain. Related Data Home Medications Medication Instructions Recorded Confirmed No Known Home Medications 06/28/21 02/05/22 Allergies Allergy/AdvReac Type Severity Reaction Status Date / Time rosuvastatin Allergy Intermediate myalgia Verified 01/23/22 18:32 Review of Systems Review of Systems Narrative: Remainder of complete review of systems is otherwise unremarkable except for that included in the HPI. Patient History Medical History Class 1 obesity (08/16/16) Gastroesophageal reflux disease Hyperlipidemia (09/25/11) Family History Mother Hypertension Social History household members: spouse and children Smoking Status: Never smoker Smoking Status: Never smoker alcohol intake frequency: holidays/special occasions only Substance Use Type: does not use Exam Initial Vital Signs Initial Vital Signs: Vital Signs Temperature 98.0 F 02/05/22 09:28 Pulse Rate 89 02/05/22 09:28 Respiratory Rate 18 02/05/22 09:28 Blood Pressure 134/68 02/05/22 09:28 Pulse Oximetry 97 02/05/22 09:28 Oxygen Delivery Method 02/05/22 09:28 General: Healthy appearing, in mild distress. Able to give a complete and coherent history. Well-nourished well-developed HEENT: Moist mucous membranes, normal sclera with reactive pupils, Neck: No JVD, supple Respiratory: Lungs are clear to auscultation, no wheezing no rales no rhonchi. Full and symmetrical air movement Cardiac: Regular rate and rhythm no murmurs no bruits Abdomen: Soft, mild distension, no rebound or guarding, no fluid shift, hyperactive bowel tones, no flank pain. Skin: Warm and dry, no rashes Neurologic: Grossly neurologically intact with no obvious asymmetries or abnormalities Extremities: No trauma, well perfused, no lower extremity edema Psych: Cooperative, appropriate insight and affect Course Orders Ordered: ED Orders 02/06/22 11:13 CT guided catheter placement Stat Acetaminophen (Acetaminophen 325 Mg Tablet) 650 mg PO Q6HR [facility] Last Admin: 02/06/22 04:44 Dose: Not Given Documented By: Admin: 02/06/22 00:07 Dose: Not Given Documented By: Admin: 02/05/22 17:12 Dose: 650 mg Documented By: Admin: 02/05/22 13:04 Dose: 650 mg Documented By: SUMA Docusate Sodium (Docusate 100 Mg Capsule) 100 mg PO BID [facility] Last Admin: 02/05/22 20:36 Dose: 100 mg Documented By: KELSEY Famotidine (Famotidine 20 Mg Tablet) 20 mg PO BEDTIME [facility] Last Admin: 02/05/22 20:36 Dose: 20 mg Documented By: KELSEY Hydromorphone HCl (Hydromorphone 0.5 Mg Inj) 0.5 mg IV Q15MIN PRN PRN Reason: Pain, Last Admin: 02/05/22 10:35 Dose: 0.5 mg Documented By: NANCY Sodium Chloride (Normal Saline 0.9%) 1,000 mls @ 100 mls/hr IV CONT [facility] Last Admin: 02/05/22 23:20 Dose: 100 mls/hr Documented By: Infusion: 02/05/22 23:05 Dose: 100 mls/hr Documented By: Admin: 02/05/22 13:05 Dose: 100 mls/hr Documented By: AKP Piperacillin Sod/Tazobactam (Sod 3.375 gm/ Sodium Chloride) 100 mls @ 25 mls/hr IV Q8H [facility] Last Admin: 02/06/22 02:08 Dose: 25 mls/hr Documented By: Infusion: 02/05/22 23:30 Dose: 0 mls/hr Documented By: Admin: 02/05/22 18:24 Dose: 25 mls/hr Documented By: JASPER Ketorolac Tromethamine (Ketorolac 30 Mg/Ml Vial) 30 mg IV Q6H DESTINEE Stop: 02/08/22 11:59 Last Admin: 02/06/22 05:22 Dose: 30 mg Documented By: Admin: 02/05/22 23:20 Dose: 30 mg Documented By: Admin: 02/05/22 17:13 Dose: 30 mg Documented By: Admin: 02/05/22 13:04 Dose: 30 mg Documented By: SUMA Oxycodone HCl (Oxycodone Ir 5 Mg Tablet) 5 mg PO Q4HR PRN PRN Reason: Pain, Moderate (4-6) Discontinued Medications Sodium Chloride (Normal Saline 0.9%) 1,000 mls @ 1,000 mls/hr IV BOLUS ONE Stop: 02/05/22 11:09 Last Infusion: 02/05/22 12:17 Dose: 0 mls/hr Documented By: Admin: 02/05/22 10:35 Dose: 1,000 mls/hr Documented By: NANCY Piperacillin Sod/Tazobactam (Sod 4.5 gm/ Sodium Chloride) 100 mls @ 200 mls/hr IV NOW ONE Stop: 02/05/22 11:02 Last Infusion: 02/05/22 12:18 Dose: 0 mls/hr Documented By: Admin: 02/05/22 11:15 Dose: 200 mls/hr Documented By: BT Ondansetron HCl (Ondansetron 4 Mg/2 Ml Inj) 4 mg IV NOW ONE Stop: 02/05/22 10:11 Last Admin: 02/05/22 10:35 Dose: 4 mg Documented By: BT Vital Signs Vital signs: Vital Signs - 8 hr 02/05/22 09:28 Temperature 98.0 F Pulse Rate 89 Respiratory Rate 18 Blood Pressure 134/68 Pulse Oximetry 97 Oxygen Delivery Method Room Air Medical Decision Making Lab Data Result diagrams: 02/05/22 09:02/05/22 09:23 Labs: Lab Results 02/05/22 02/05/22 02/05/22 Range/Units 09:23 09:23 09:23 WBC 19.5 H (4.5-11.0) X10^3/uL RBC 4.54 (4.5-5.9) X10^6/uL Hgb 13.5 (13.5-17.5) g/dL Hct 40.3 L (41-53) % MCV 88.7 (80-100) fL MCH 29.8 (26-34) PG MCHC 33.6 (30-36) % RDW 13.6 (11.6-14.8) % Plt Count 443 H (150-400) X10^3/uL Neut % (Auto) 83.5 H (50-75) % Lymph % (Auto) 9.5 L (25-40) % [place] % (Auto) 5.8 (3-14) % Eos % (Auto) 0.7 L (2-4) % Baso % (Auto) 0.5 (0-2) % Neut # (Auto) 38319 H (8670-8344) /uL Lymph # (Auto) 1900 (1088-1965) /uL [place] # (Auto) 1100 H (0-900) /uL Eos # (Auto) 100 (0-450) /uL Baso # (Auto) 100 (0-100) /uL Sodium 138 (137-145) mmol/L Potassium 3.3 L (3.4-5.1) mmol/L Chloride 101 (98-107) mmol/L Carbon Dioxide 25 (22-32) mmol/L BUN 12 (9-20) mg/dL Creatinine 0.99 (0.66-1.25) mg/dL Estimated GFR > 60 (>60) mL/min BUN/Creatinine Ratio 12.1 (6-22) Glucose 144 H (70-100) mg/dL Lactate 1.3 (0.7-2.1) mmol/L Calcium 8.9 (8.4-10.2) mg/dL Total Bilirubin 1.1 (0.2-1.3) mg/dL AST 56 (17-59) IU/L ALT 76 H (<50) IU/L Alkaline Phosphatase 259 H (38-126) U/L Total Protein 8.3 H (6.3-8.2) g/dL Albumin 4.1 (3.5-5.0) g/dL Globulin 4.2 H (1.7-4.1) g/dL Albumin/Globulin Ratio 1.0 (1.0-2.8) Lipase 65 (23-300) U/L Urine Color Urine Appearance Urine pH (4.5-8.0) Ur Specific Pilot (1.000-1.035) Urine Protein (Negative) Urine Glucose (UA) (Negative) g/dL Urine Ketones (NEGATIVE) Urine Occult Blood (Negative) Urine Nitrate (Negative) Urine Bilirubin (NEGATIVE) Urine Urobilinogen (0.2) E.U./dL Ur Leukocyte Esterase (NEGATIVE) Urine RBC (0-5/HPF) Urine WBC (0-5/HPF) Ur Squamous Epith Cells (0-5/HPF) Urine Bacteria (None) Urine Mucus (Negative) Ur Culture Indicated? SARS-CoV-2 (PCR) (Negative) 02/05/22 02/05/22 Range/Units 09:45 09:55 WBC (4.5-11.0) X10^3/uL RBC (4.5-5.9) X10^6/uL Hgb (13.5-17.5) g/dL Hct (41-53) % MCV (80-100) fL MCH (26-34) PG MCHC (30-36) % RDW (11.6-14.8) % Plt Count (150-400) X10^3/uL Neut % (Auto) (50-75) % Lymph % (Auto) (25-40) % [place] % (Auto) (3-14) % Eos % (Auto) (2-4) % Baso % (Auto) (0-2) % Neut # (Auto) (1028-2128) /uL Lymph # (Auto) (2859-6916) /uL [place] # (Auto) (0-900) /uL Eos # (Auto) (0-450) /uL Baso # (Auto) (0-100) /uL Sodium (137-145) mmol/L Potassium (3.4-5.1) mmol/L Chloride (98-107) mmol/L Carbon Dioxide (22-32) mmol/L BUN (9-20) mg/dL Creatinine (0.66-1.25) mg/dL Estimated GFR (>60) mL/min BUN/Creatinine Ratio (6-22) Glucose (70-100) mg/dL Lactate (0.7-2.1) mmol/L Calcium (8.4-10.2) mg/dL Total Bilirubin (0.2-1.3) mg/dL AST (17-59) IU/L ALT (<50) IU/L Alkaline Phosphatase (38-126) U/L Total Protein (6.3-8.2) g/dL Albumin (3.5-5.0) g/dL Globulin (1.7-4.1) g/dL Albumin/Globulin Ratio (1.0-2.8) Lipase (23-300) U/L Urine Color Yellow Urine Appearance Clear Urine pH 5.5 (4.5-8.0) Ur Specific [place] 1.010 (1.000-1.035) Urine Protein 1+ H (Negative) Urine Glucose (UA) Negative (Negative) g/dL Urine Ketones Negative (NEGATIVE) Urine Occult Blood 1+ H (Negative) Urine Nitrate Negative (Negative) Urine Bilirubin Negative (NEGATIVE) Urine Urobilinogen 0.2 (0.2) E.U./dL Ur Leukocyte Esterase Negative (NEGATIVE) Urine RBC 0-1/hpf (0-5/HPF) Urine WBC 0-1/hpf (0-5/HPF) Ur Squamous Epith Cells 0-1 /hpf (0-5/HPF) Urine Bacteria None seen (None) Urine Mucus 1+ H (Negative) Ur Culture Indicated? Cult not indicated SARS-CoV-2 (PCR) Negative (Negative) Imaging Data CT scan - abdomen/pelvis: Radiologist's Impression: FINDINGS: ? Lower thorax: The lung bases are clear.? Heart size normal.? Small hiatal hernia noted. ? Liver:? Normal in size and attenuation. No contour deformity present. ? Biliary system:? No calcified cholelithiasis or pericholecystic inflammation.? No intra or extrahepatic bile duct dilatation. ? Pancreas:? Unremarkable without mass or inflammation evident. ? Spleen:? Normal in size and density. ? Adrenals:? Normal morphology and density. ? Reproductive system:? Unremarkable as visualized. ? Urinary system:? Left extrarenal pelvis and peripelvic cysts without convincing evidence of acute hydronephrosis.? No perinephric edema or calculus present. ? Gastrointestinal system:? Bowel wall thickening associated with the sigmoid colon adjacent to right lower quadrant abscess is likely reactive.? No bowel obstruction. ? Peritoneal spaces:? There is a right lower quadrant abscess measuring 5 cm with surrounding inflammatory change.? Suggestion of abnormal appendix noted assoc iated posteriorly.? No evidence of appendicolith.? No free air ? Vasculature:? The IVC, aorta and iliac vasculature are unremarkable. ? Abdominal wall:? Abdominal wall intact without evidence of ventral or inguinal hernias. ? Musculoskeletal:? Normal bone mineralization.? No acute fractures.? ? IMPRESSION: ? 1. Right lower quadrant 5 cm abscess likely result of perforated appendix noted posteriorly.? No evidence of appendicolith, obstruction or free air. ? 2. Adjacent sigmoid colon bowel wall thickening is likely reactive and secondary to adjacent abscess ? ? ? Approved by: Vel Yoo M.D. on 02/05/2022 at 9:47? MDM Narrative Medical decision making narrative: 61-year-old gentleman with 2 weeks of abdominal pain, white blood cell count is almost 20,000, CT scan shows what is likely a posteriorly perforated appen dicitis with a 5 cm abdominal abscess. Care is reviewed with General surgery who recommended percutaneous drainage rather than surgery. Patient is comfortable at this point, Zosyn has been initiated there is no signs of sepsis. Will begin working on options for interventional radiology in the setting of our current crisis of available bed shortage in [facility] Care is reviewed with Dr. Hancock, on-call Radiology. He reviewed the scan as well as radiologist available in-house tomorrow and believes that CT-guided percutaneous drainage and catheter placement will be possible. Given that information, Dr. Lowe will be admitting the patient. Will continue with fluids and antibiotics over the evening. I also talked with the roundhouse supervisor so that a nurse can be available to help the radiologist was sedation 1st thing in the morning. Patient is informed and questions are answered. He is safe for transfer to the floor. Discharge Plan Departure Patient Disposition: Admitted As Inpatient Clinical Impression: Abdominal abscess, Acute perforated appendicitis Admit Date/Time: 02/05/22 11:54 Admit Provider: Tonio Lowe
[2022-02-05 09:57] LABS: Lactate (Lactic Acid) 1.3 mmol/L (0.7-2.1)
[2022-02-05 09:58] LABS: Alanine Aminotransferase 76 IU/L (<50); Albumin 4.1 g/dL (3.5-5.0); Alkaline Phosphatase 259 U/L (38-126); Aspartate Aminotransferase 56 IU/L (17-59); BUN Creatinine Ratio 12.1 (6-22); Bilirubin Total 1.1 mg/dL (0.2-1.3); Blood Urea Nitrogen 12 mg/dL (9-20); Calcium 8.9 mg/dL (8.4-10.2); Carbon Dioxide 25 mmol/L (22-32); Chloride 101 mmol/L (98-107); Estimated Glomerular Filt Rate > 60 mL/min (>60); Globulin 4.2 g/dL (1.7-4.1); Glucose 144 mg/dL (70-100); HEMOLYSIS < 15 (0-50); Lipase 65 U/L (23-300); Potassium 3.3 mmol/L (3.4-5.1); Sodium 138 mmol/L (137-145); Total Protein 8.3 g/dL (6.3-8.2)
[2022-02-05 10:07] LABS: Appearance Urine UA CLEAR; Bilirubin Urine UA NEGATIVE (NEGATIVE); Color Urine UA YELLOW; Glucose Urine UA NEGATIVE (Negative); Ketones Urine UA NEGATIVE (NEGATIVE); Leukocyte Esterase Urine UA NEGATIVE (NEGATIVE); Nitrite Urine UA NEGATIVE (Negative); Occult Blood Urine UA 1+ (Negative); Protein Urine UA 1+ (Negative); Urobilinogen Urine UA 0.2 E.U./dL (0.2); pH Urine UA 5.5 (4.5-8.0)
[2022-02-05 10:22] LABS: Bacteria Urine None Seen; Culture Indicated Urine Cult Not Indicated; Mucus Urine 1+ (Negative); RBC Urine 0-1/HPF (0-5/HPF); Squamous Epithelial Cell Urine 0-1 /HPF (0-5/HPF); WBC Urine 0-1/HPF (0-5/HPF)
[2022-02-05 10:24] LABS: COVID19 -Nasal RAPID Negative (Negative)
[2022-02-05] MEDS: SODIUM CHLORIDE 0.9% 1,000 ML 1000 ML IV (10:35)
[2022-02-05] MEDS: ONDANSETRON 4 MG/2 ML INJ IV (10:35)
[2022-02-05] MEDS: HYDROMORPHONE 0.5 MG INJ IV (10:35)
[2022-02-05] MEDS: PIPERACILLIN/TAZO 4.5 GM in SODIUM CHLORIDE 0.9% 100 ML IV (11:15)
--- NOTE | 2022-02-05 12:03 | PM.CALLCOV.1 ---
Call Coverage Note Note Date of Patient Contact: 02/05/22 Time of Patient Contact: 12:03 Narrative of Care Provided: Full note to follow 61M with perforated appendicitis with 5 cm abscess. -CT guided drain placement tomorrow Tuesday 02/06. Radiology notified -NPO after midnight -Brandon
[2022-02-05 12:30] LABS: INR 1.4 (0.9-1.3)
[2022-02-05 12:33] LABS: PTT Partial Thromboplastin Tim 36 SECONDS (26-36)
[2022-02-05] MEDS: ACETAMINOPHEN 325 MG TABLET 650 MG PO ×2 (13:04→17:12)
[2022-02-05] MEDS: KETOROLAC 30 MG/ML VIAL IV ×3 (13:04→23:20)
[2022-02-05] MEDS: SODIUM CHLORIDE 0.9% 1,000 ML 100 ML IV ×2 (13:05→23:20)
[2022-02-05] MEDS: PIPERACILLIN/TAZO 3.375 GM in SODIUM CHLORIDE 0.9% 100 ML IV (18:24)
[2022-02-05] MEDS: DOCUSATE 100 MG CAPSULE PO (20:36)
[2022-02-05] MEDS: FAMOTIDINE 20 MG TABLET PO (20:36)
[2022-02-06] VITALS (8 sets, daily range): BP systolic 90–116; BP diastolic 46–61; PULSE 60–68; RESP 14–23; TEMP 36.2–36.8; O2SAT 96–99
[2022-02-06] MEDS: PIPERACILLIN/TAZO 3.375 GM in SODIUM CHLORIDE 0.9% 100 ML IV ×3 (02:08→19:47)
[2022-02-06] MEDS: KETOROLAC 30 MG/ML VIAL IV (05:22)
--- NOTE | 2022-02-06 11:13 | DI.CT.S_ITS ---
PROCEDURE: CT PEL WO CON INDICATIONS: perforated appendix with abscess TECHNIQUE: Noncontrast 3 mm axial sections acquired through the bony pelvis, with coronal and sagittal reformatting. COMPARISON: [facility], CT, CT ABDOMEN PELVIS W CON, 02/05/2022, 10:23. FINDINGS: Image quality: Excellent. Soft tissues: There is a 2.9 x 4.7 cm fluid collection with associated stranding within the mesentery in the right side of abdomen, which has decreased in size when compared to the last exam dated 02/05/2022 (previously measuring 4.8 x 5.8 cm). The collection is behind a loop of small intestine. No safe window for percutaneous drainage. There is thickening of sigmoid colon. Bones: No suspicious osseous lesions. IMPRESSION: The complex fluid collection in the right side of abdomen has decreased in size. There is no safe window for percutaneous drainage. Percutaneous abscess drainage was not performed. A message was left for Dr. Lowe with his office. Dictated by: Aster Dotson M.D. on 02/06/2022 at 10:27 Approved by: Aster Dotson M.D. on 02/06/2022 at 10:53
--- NOTE | 2022-02-06 13:22 | PM.HP.1 ---
History of Present Illness History of Present Illness Chief complaint: stomach ache [id number] D/fever weakness Narrative: The patient is a 61-year-old man who presented to the emergency department yesterday with 2 weeks of abdominal pain, distention, nausea and vomiting. A CT was performed which demonstrated a perforated appendicitis with an abscess. He was started on Zosyn and plans were made to perform CT-guided percutaneous drainage of the abscess today. Today another CT was performed and the abscess was reported to be smaller and was unable to be drained. Patient History Medical History Class 1 obesity (08/16/16) Gastroesophageal reflux disease Hyperlipidemia (09/25/11) Family & Social History Family History (Reviewed 02/05/22 @ 11: by Viky Joyner MD) Mother Hypertension Social History: household members spouse,children Prior Living Arrangements House Safety & Behavioral: Feels Safe in Current Yes Environment Been Physically Hurt or No Threatened By a Person Tobacco & Substance use: Smoking Status Never smoker alcohol intake frequency holiday/special occasion Substance Use Type does not use Meds Home Medications and Allergies Home Medications Medication Instructions Recorded Confirmed Type No Known Home Medications 06/28/21 02/05/22 History Allergies Allergy/AdvReac Type Severity Reaction Status Date / Time rosuvastatin Allergy Intermediate myalgia Verified 01/23/22 18:32 Exam Vital Signs (past 8 hours): - 02/06/22 07:00 02/06/22 09:31 02/06/22 11:27 Temperature 97.2 F L 97.6 F Pulse Rate 68 67 60 Respiratory Rate 20 14 18 Blood Pressure 98/47 L 116/61 103/57 L Pulse Oximetry 97 98 97 Oxygen Flow Rate 0 0 Oxygen Delivery Method Room Air Oxygen Flow Rate 0 Objective Labs Result Diagrams: 02/05/22 09:23 02/05/22 09:23 Assessment & Plan Assessment and plan (1) Acute perforated appendicitis: Status: Acute (2) Abdominal abscess: Status: Acute Plan 61-year-old man with a perforated appendicitis with abscess. Unable to be percutaneously drained at this time. Recommend continued IV antibiotics. We can advance diet. I told him I would like to treat him for at least 2 days with IV antibiotics and monitor his progress. If he seems to be improving we can transition him to oral antibiotics and discharge him home with a follow-up CT scan in about a week. Time Spent With Patient Critical Care time: I spent a total of [] minutes of critical care time on this patient's care today; this time is exclusive of procedural time.
--- NOTE | 2022-02-06 13:49 | CM.DANOTE ---
Patient is a 61 yo male who was admitted on 02/05/22 for Stomach Pains. Pt has BO for insurance and his PCP is not listed. EMR was reviewed. Per Surgeon, pt with likely perforated appendix with abscess. Per Surgeon, after additional CT scan pt's abscess reduced in size and too small to complete guided drainage of abscess and to remain on IV-Abx for now and drain to be placed and currently no need for further surgical intervention. Pt lives in [place] with his spouse and family and works and is independent with ADL's at baseline. No bedside assessment completed at this time due to triage needs and currently no identified barriers to discharge. Plan: SW to follow for pt progress towards confirming safe plan of d/c home with family and any further identified discharge planning needs. ROCÍO Bonilla
[2022-02-06] MEDS: FAMOTIDINE 20 MG TABLET PO (19:47)
[2022-02-06] MEDS: DOCUSATE 100 MG CAPSULE PO (19:48)
[2022-02-06] MEDS: OXYCODONE IR 5 MG TABLET PO (22:27)
[2022-02-06] MEDS: SODIUM CHLORIDE 0.9% 1,000 ML 100 ML IV (22:27)
[2022-02-07] VITALS (10 sets, daily range): BP systolic 109–141; BP diastolic 52–68; PULSE 57–65; RESP 15–20; TEMP 36.1–36.6; O2SAT 95–99
[2022-02-07] MEDS: ACETAMINOPHEN 325 MG TABLET 650 MG PO ×4 (00:38→23:53)
[2022-02-07] MEDS: KETOROLAC 30 MG/ML VIAL IV ×4 (00:38→23:53)
[2022-02-07] MEDS: PIPERACILLIN/TAZO 3.375 GM in SODIUM CHLORIDE 0.9% 100 ML IV ×3 (03:09→18:19)
[2022-02-07] MEDS: SODIUM CHLORIDE 0.9% 1,000 ML 100 ML IV ×2 (08:38→18:43)
[2022-02-07 11:39] LABS: Add Manual Diff / Slide Review NO; Basophils Absolute Auto 100 /uL (0-100); Basophils Percent Auto 1.2 % (0-2); Eosinophils Absolute Auto 400 /uL (0-450); Eosinophils Percent Auto 6.1 % (2-4); Hematocrit 32.5 % (41-53); Lymphocytes Absolute Auto 1600 /uL (1100-4500); Lymphocytes Percent Auto 24.7 % (25-40); Mean Corpuscular HGB Conc 33.8 % (30-36); Mean Corpuscular Hemoglobin 30.5 PG (26-34); Mean Corpuscular Volume 90.2 fL (80-100); Monocytes Absolute Auto 500 /uL (0-900); Neutrophils Absolute Auto 3900 /uL (1500-7000); Platelet Count 415 X10^3/uL (150-400); Red Cell Distribution Width 13.9 % (11.6-14.8); White Blood Cell Count 6.4 X10^3/uL (4.5-11.0)
--- NOTE | 2022-02-07 18:56 | PM.PN.1 ---
Subjective Subjective Date Patient Seen: 02/07/22 Time Patient Seen: 18:56 Interval history: Tolerating diet. Passing flatus. He still feels quite fatigued. Exam Vital Signs (past 8 hours): - 02/07/22 11:00 02/07/22 12:00 02/07/22 15:00 Temperature 97.5 F L 97.5 F L Pulse Rate 63 65 Respiratory Rate 20 20 Blood Pressure 111/59 L 109/52 L Pulse Oximetry 97 97 95 Oxygen Delivery Method Room Air Oxygen Flow Rate 0 0 0 02/07/22 16:00 Temperature Pulse Rate Respiratory Rate Blood Pressure Pulse Oximetry 95 Oxygen Delivery Method Room Air Oxygen Flow Rate 0 Oxygen Delivery Method Room Air Oxygen Flow Rate 0 Narrative Exam Narrative: Abdomen soft without peritoneal signs Objective Labs Result Diagrams: 02/07/22 11:25 02/05/22 09:23 Labs: Laboratory Results - last 24 hr 02/07/22 11:25 WBC 6.4 RBC 3.60 L Hgb 11.0 L Hct 32.5 L MCV 90.2 MCH 30.5 MCHC 33.8 RDW 13.9 Plt Count 415 H Neut % (Auto) 60.0 Lymph % (Auto) 24.7 L [place] % (Auto) 8.0 Eos % (Auto) 6.1 H Baso % (Auto) 1.2 Neut # (Auto) 3900 Lymph # (Auto) 1600 [place] # (Auto) 500 Eos # (Auto) 400 Baso # (Auto) 100 PFSH Medical History Class 1 obesity (08/16/16) Gastroesophageal reflux disease Hyperlipidemia (09/25/11) Family History Mother Hypertension Social History household members: spouse and children Smoking Status: Never smoker Assessment & Plan Assessment and plan (1) Acute perforated appendicitis: Status: Acute Plan Continue IV antibiotics until he is feeling better. White count is normal. Time Spent With Patient Critical Care time: I spent a total of [] minutes of critical care time on this patient's care today; this time is exclusive of procedural time.
[2022-02-07] MEDS: FAMOTIDINE 20 MG TABLET PO (20:41)
[2022-02-07] MEDS: DOCUSATE 100 MG CAPSULE PO (20:41)
[2022-02-08] VITALS: BP 141/59; PULSE 57; RESP 17; TEMP 36.3; O2SAT 96
[2022-02-08] MEDS: PIPERACILLIN/TAZO 3.375 GM in SODIUM CHLORIDE 0.9% 100 ML IV ×2 (02:20→11:09)
[2022-02-08 04:00] VITALS: BP 132/48; PULSE 51; RESP 16; TEMP 36.4; O2SAT 96; O2SAT 97
[2022-02-08] MEDS: KETOROLAC 30 MG/ML VIAL IV (06:29)
[2022-02-08] MEDS: ACETAMINOPHEN 325 MG TABLET 650 MG PO ×2 (06:30→11:09)
[2022-02-08 08:00] VITALS: BP 146/57; PULSE 56; RESP 16; TEMP 36.8; O2SAT 98
[2022-02-08 08:25] VITALS: O2SAT 95
[2022-02-08] MEDS: SODIUM CHLORIDE 0.9% 1,000 ML 100 ML IV (08:31)
[2022-02-08 12:00] VITALS: BP 134/74; PULSE 61; RESP 16; RESP 97; TEMP 36.3; O2SAT 97
--- NOTE | 2022-02-08 13:35 | P.DS_ITS ---
History of Present Illness History of Present Illness Chief complaint: stomach ache [id number] D/fever weakness Narrative: The patient is a 61-year-old man who presented to the emergency department yesterday with 2 weeks of abdominal pain, distention, nausea and vomiting. A CT was performed which demonstrated a perforated appendicitis with an abscess. He was started on Zosyn and plans were made to perform CT-guided percutaneous drainage of the abscess today. Today another CT was performed and the abscess was reported to be smaller and was unable to be drained. Discharge Providers Provider Date of admission: 02/05/22 11:54 Discharge Date: 02/08/22 Primary care physician: Doctor Moe MD Discharge provider: Henry De La Rosa MD Summary Hospital Course Discharge Diagnosis: Appendiceal abscess Hospital Course: The patient was admitted with a diagnosis of an appendiceal abscess. He was started on IV Zosyn. Initially the plan was to perform percutaneous drainage by Radiology however when he went back for a second CT the abscess a decreased in size and was no longer accessible via percutaneous approach. The patient imp roved symptomatically. He tolerated a diet his white count normalized. He was discharged home on oral antibiotics. Exam Vital Signs (past 8 hours): - 02/08/22 08:00 02/08/22 08:25 02/08/22 12:00 Temperature 98.2 F Pulse Rate 56 L Respiratory Rate 16 Blood Pressure 146/57 H Pulse Oximetry 98 95 97 Oxygen Delivery Method Room Air Room Air Oxygen Flow Rate 0 0 0 02/08/22 12:00 Temperature 97.4 F L Pulse Rate 61 Respiratory Rate 16 Blood Pressure 134/74 Pulse Oximetry 97 Oxygen Delivery Method Oxygen Flow Rate 0 Oxygen Delivery Method Room Air Oxygen Flow Rate 0 Objective Labs Result Diagrams: 02/07/22 11:25 02/05/22 09:23 [facility] Medical History Class 1 obesity (08/16/16) Gastroesophageal reflux disease Hyperlipidemia (09/25/11) Family History Mother Hypertension Social History household members: spouse and children Smoking Status: Never smoker Discharge Plan Discharge Plan Patient Disposition: Home Discharge orders & Medications Prescriptions: New amoxicillin-pot clavulanate [Augmentin] 500-125 mg tablet 1 tab PO BID Qty: 14 0RF Follow up/Referrals: Miscellaneous,, [Primary Care Provider] - Discharge Data Primary Care Provider: Doctor Moe
[2022-02-08] MEDS: AMOXICILLIN/CLAV 500/125 MG 1 TAB PO (13:36)
--- NOTE | 2022-02-08 14:37 | PC.NURSE ---
Pt is dressed and ready for discharge home with Friend. IV has been removed. Went over d/c instructions with Pt -discussed d/c meds, time of last dose, reviewed stroke education, reminded Pt to drink plenty of fluids to prevent constipation or dehydration, to take his whole prescription of abx as prescribed and to consider a probiotic if he starts to have diarrhea. Pt denied further questions and was escorted to ER entrance by RN with friend [facility] with all belongings.
--- NOTE | 2022-02-08 15:10 | CM.DPC ---
DCP Discharge Home Per Surgeon, pt tolerating diet has flatus and white count is normal and ambulating in room and medically stable to d/c home today. Pt was able to be conservatively treated with IV-Abx and no surgical intervention needed during admission. Per RN, d/c instructions provided and pt dressed and ready for d/c and was taken down to friend POV for transport home and no concerns noted. Plan: Patient discharged home this afternoon via friend POV to home on oral abx and outpt f/u and no SW needs at this time. ROCÍO Bonilla
== END 2022-02-08 14:55 | disposition home or self-care (01) | DRG 373 ==
LOC: ED 09:28 → AC 11:56
PROVIDERS: Surgery; Admitting Provider Surgery; Emergency Provider Emergency Medicine; Referring Provider Emergency Medicine; Visit Provider Surgery
DX: K35.33 Acute appendicitis with perforation, localized peritonitis, and gangrene, with abscess (principal); Z20.822 Contact with and (suspected) exposure to COVID-19
CPT/HCPCS: 36415; 72192; 74177; 80053; 81001; 83605; 83690; 85025; 85610; 85730; 87040; 87635; 96365; 96375; 99221; 99231; 99238; 99284; C9803; A9270; J1170; J1885; J2405; J2543

== ENCOUNTER → 2022-02-20 11:51 | Outpatient (CLI) | payer OTHER, SELFPAY ==
[2022-02-05 12:36] VITALS: BMI 31.7
--- NOTE | 2022-02-20 11:53 | DI.CT.S_ITS ---
PROCEDURE: CT ABDOMEN PELVIS W CON INDICATIONS: perforated appendicitis TECHNIQUE: After the administration of oral and IV contrast, axial sections were acquired from the lung bases to the pubic symphysis. Coronal and sagittal reformats were performed. For radiation dose reduction, the following was used: automated exposure control, adjustment of mA and/or kV according to patient size. COMPARISON: [facility], CT, CT PEL WO CON, 02/06/2022, 9:21. [facility], CT, CT ABDOMEN PELVIS W CON, 02/05/2022, 10:23. FINDINGS: Image quality: Excellent. Lung bases: Unremarkable. Heart: No significant findings. ABDOMEN: Liver: Unremarkable. Gallbladder: Unremarkable. Biliary ducts: Unremarkable. Pancreas: Unremarkable. Spleen: Unremarkable. Adrenal Glands: Unremarkable. Kidneys and Ureters: Left-sided extrarenal pelvis or chronic greater pelvic junction obstruction appears unchanged.. Bowel and peritoneum: Dilated fluid-filled appendix is again seen in the right lower quadrant measuring up to 9 mm in diameter. There is adjacent inflammatory fat stranding. The previously seen abscess in this location appears to have resolved without residual drainable fluid seen. Fat stranding abuts the nearby sigmoid colon, and a small or developing fistula is not excluded. No extravasation of oral contrast material is seen. No significant residual bowel wall thickening is seen in the sigmoid colon. Bowel loops are otherwise unremarkable without signs of bowel obstruction Ventral Wall: No hernia. Abdominal Nodes: No retroperitoneal or mesenteric adenopathy by size criteria. Vessels: Aorta and inferior vena cava are normal in size. PELVIS: Pelvic Organs: Unremarkable. Bladder: Unremarkable. Pelvic Nodes: No enlarged lymph nodes. Miscellaneous: No inguinal hernias are seen. Bones: Unremarkable. IMPRESSION: Dilated appendix in the right lower quadrant with decreased adjacent inflammatory fat stranding and resolution of the previously seen abscess when compared to the CT from 02/05/2022. Inflammatory changes approach the sigmoid colon, and a developing fistula is not excluded although no extravasation of oral contrast material is seen. Dictated by: Clyde Tena M.D. on 02/21/2022 at 8:43 Approved by: Clyde Tena M.D. on 02/21/2022 at 8:53
== END ==
PROVIDERS: Referring Provider Surgery; Visit Provider Surgery
DX: K35.32 Acute appendicitis with perforation, localized peritonitis, and gangrene, without abscess (principal)
CPT/HCPCS: 74177; Q9967

== ENCOUNTER → 2023-10-26 12:47 | Outpatient (CLI) | payer OTHER, SELFPAY ==
[2022-02-05 12:36] VITALS: BMI 31.7
--- NOTE | 2023-10-26 12:51 | DI.RAD.S_ITS ---
PROCEDURE: XR HAND LT MIN 3V INDICATIONS: Ground level fall L and I TECHNIQUE: 3 views of the hand(s) acquired. COMPARISON: None. FINDINGS: Bones: No acute displaced fracture. No high-grade degenerative changes. Soft tissues: No suspicious calcifications. IMPRESSION: No acute radiographic abnormality or high-grade degenerative changes. If there is high concern for occult injury, consider repeat radiography or cross-sectional imaging. Dictated by: Forrest Alvarez M.D. on 10/26/2023 at 14:50 Approved by: Forrest Alvarez M.D. on 10/26/2023 at 14:51
--- NOTE | 2023-10-26 12:51 | DI.RAD.S_ITS ---
PROCEDURE: XR WRIST LT MIN 3V INDICATIONS: Ground level fall L and I TECHNIQUE: 4 views of the wrist were acquired. COMPARISON: None. FINDINGS: Bones: No displaced fracture or high-grade degenerative changes. No dislocation Soft tissues: No suspicious calcifications. IMPRESSION: No acute osseous abnormality. If there is high concern for occult injury, consider repeat radiography or cross-sectional imaging. Dictated by: Forrest Alvarez M.D. on 10/26/2023 at 14:51 Approved by: Forrest Alvarez M.D. on 10/26/2023 at 14:52
== END ==
PROVIDERS: Referring Provider Nurse Practitioner Family; Visit Provider Nurse Practitioner Family
DX: M79.645 Pain in left finger(s) (principal); M25.532 Pain in left wrist
CPT/HCPCS: 73110; 73130